=== PATIENT | female | born 1965 | race Caucasian/White ===

== ENCOUNTER 2017-02-07 21:13 | Observation (INO) | payer MEDICAID, OTHER ==
[2017-02-07] MEDS ORDERED: Sodium Chloride 0.9% 2.5 ML Syringe FLUSH PRN (21:48)
[2017-02-07] MEDS ORDERED: Sodium Chloride 0.9% 10 ML Syringe FLUSH PRN (21:48)
[2017-02-07] MEDS ORDERED: Aspirin 81 MG Tab.Chew PO ONE (21:48)
--- NOTE | 2017-02-07 21:51 | EDM.PDOC ---
ED HPI GENERAL MEDICAL PROBLEM - General Chief Complaint: Cardiovascular Problem Stated Complaint: LOW BLOOD SUGAR Time Seen by Provider: 02/07/17 21:42 Source of Information: Reports: Patient History Limitations: Reports: No Limitations - History of Present Illness INITIAL COMMENTS - FREE TEXT/NARRATIVE: HISTORY AND PHYSICAL: History of present illness: [51-year-old female with no known cardiac history except mitral regurg now presents emergency department after chest pain this evening associated with lightheadedness and palpitations. Patient is a long-term smoker, she has high cholesterol and high blood pressure with treatment of which she describes compliance with. Patient is not diabetic over she is a very strong family history of coronary artery disease with her mother passing away from a massive CA at 40 years old. Patient had a stress test 10 years ago when she had a TIA as well as an echocardiogram which was when her mitral regurg was diagnosed. She was supposed follow-up with cardiology but never did. She has not experienced exertional chest pain however she did feel like she was mildly short of breath earlier today which is now resolved. No productive cough or fever. Pain is not reproducible with movement. She has no pleuritic pain] Review of systems: As per history of present illness and below otherwise all systems reviewed and negative. Past medical history: As per history of present illness and as reviewed below otherwise noncontributory. Surgical history: As per history of present illness and as reviewed below otherwise noncontributory. Social history: No reported history of drug or alcohol abuse. Family history: As per history of present illness and as reviewed below otherwise noncontributory. Physical exam: Well-appearing patient distress nontender chest wall clear lungs regular rate and rhythm no tachycardia HEENT: Atraumatic, normocephalic, pupils reactive, negative for conjunctival pallor or scleral icterus, mucous membranes moist, throat clear, neck supple, nontender, trachea midline. Lungs: Clear to auscultation, breath sounds equal bilaterally, chest nontender. Heart: S1S2, regular, negative for clicks, rubs, or JVD. Abdomen: Soft, nondistended, nontender. Negative for masses or hepatosplenomegaly. Negative for costovertebral tenderness. Pelvis: Stable nontender. Genitourinary: Deferred. Rectal: Deferred. Extremities: Atraumatic, negative for cords or calf pain. Neurovascular unremarkable. Neuro: Awake, alert, oriented. Cranial nerves grossly unremarkable. Cerebellum unremarkable. Motor and sensory unremarkable throughout. Exam nonfocal. Diagnostics: [Chest x-ray no acute disease interpreted by me EKG with normal sinus rhythm normal axis no STEMI interpreted by me Therapeutics: [Aspirin given] Impression: [] Plan: [Signs and symptoms consistent with chest pain a possible cardiac etiology. Workup unremarkable. Patient stable and pain-free. Aspirin given. Case discussed with Dr. Louie Hayes hospitalist wind operations supervisor who is aware of history and findings and agrees with observation telemetry admission to his service.] Definitive disposition and diagnosis as appropriate pending reevaluation and review of above. Treatments DRY BOSS: Reports: Aspirin, Other (see below) Other Treatments DRY BOSS: Coreg Headache Pain Score (Numeric/FACES): 7 - Related Data Allergies Allergy/AdvReac Type Severity Reaction Status Date / Time Penicillins Allergy Itching Verified 02/07/17 22:05 Home Meds: Home Meds Albuterol Sulfate [Proventil Hfa] 2 puff INH Q4H PRN 02/07/17 [History] Aspirin [Adult Low Dose Aspirin EC] 81 mg PO 02/07/17 [History] Budesonide/Formoterol Fumarate [Symbicort 80-4.5 Mcg Inhaler] 2 puff INH DAILY 02/07/17 [History] Carvedilol [Coreg] 6.25 mg PO BIDMEALS 02/07/17 [History] Multivitamin [Multi-Vitamin Daily] 1 each PO 02/07/17 [History] Sertraline [Zoloft] 50 mg PO BEDTIME 02/07/17 [History] Simvastatin [Zocor] 10 mg PO BEDTIME 02/07/17 [History] Social & Family History - Tobacco Use Smoking Status *Q: Current Every Day Smoker Years of Tobacco use: 30 Packs/Tins Daily: 1 Used Tobacco, but Quit: No Second Hand Smoke Exposure: Yes - Alcohol Use Days Per Week of Alcohol Use: 7 Number of Drinks Per Day: 2 Total Drinks Per Week: 14 Date of Last Drink: 02/07/17 - Recreational Drug Use Recreational Drug Use: No ED ROS GENERAL - Review of Systems Review Of Systems: See Below (History of present illness) ED EXAM, GENERAL - Physical Exam Exam: See Below (History of present illness) Course - Vital Signs Last Recorded V/S: Last Vital Signs Temp 36.6 C 02/08/17 00:03 Pulse 89 02/08/17 00:15 Resp 16 02/08/17 00:15 BP 167/97 H 02/08/17 00:15 Pulse Ox 95 02/08/17 00:15 - Orders/Labs/Meds Orders: Active Orders 24 hr Category Date Time Status EKG 12 Lead [EKG Documentation Completion] [RC] STAT Care 02/07/17 21:36 Active EKG 12 Lead [EKG Documentation Completion] [RC] STAT Care 02/07/17 21:48 Inactive Chest 1V Frontal [CR] Stat Exams 02/07/17 21:48 Taken Sodium Chloride 0.9% [Normal Saline] 1,000 ml Med 02/07/17 22:00 Active IV ASDIRECTED Peripheral IV Insertion Adult [OM.PC] Stat Oth 02/07/17 21:48 Ordered Medication Orders Acetaminophen (Tylenol) 650 mg PO Q4H PRN PRN Reason: Pain Last Admin: 02/08/17 01:48 Dose: 650 mg Carvedilol (Coreg) 6.25 mg PO BIDMEALS [facility] Sodium Chloride (Normal Saline) 1,000 mls @ 999 mls/hr IV ASDIRECTED [facility] Last Admin: 02/07/17 22:22 Dose: 999 mls/hr Dextrose/Water (Dextrose 5% In Water) 1,000 mls @ 100 mls/hr IV ASDIRECTED [facility] Last Admin: 02/08/17 01:48 Dose: 100 mls/hr Non-Formulary Medication (Budesonide/Formoterol Fumarate) 2 puff INH DAILY [facility] Labs: Laboratory Tests 02/07/17 02/07/17 02/07/17 Range/Units 21:50 21:50 21:50 WBC 9.56 (4.0-11.0) K/uL RBC 4.67 (4.30-5.90) M/uL Hgb 13.3 (12.0-16.0) g/dL Hct 39.6 (36.0-46.0) % MCV 84.8 (80.0-98.0) fL MCH 28.5 (27.0-32.0) pg MCHC 33.6 (31.0-37.0) g/dL RDW Std Deviation 56.7 (28.0-62.0) fl RDW Coeff of Sara 19 H (11.0-15.0) % Plt Count 301 (150-400) K/uL MPV 8.70 (7.40-12.00) fL Neut % (Auto) 71.3 (48.0-80.0) % Lymph % (Auto) 19.6 (16.0-40.0) % [place] % (Auto) 7.5 (0.0-15.0) % Eos % (Auto) 1.3 (0.0-7.0) % Baso % (Auto) 0.3 (0.0-1.5) % Neut # (Auto) 6.8 H (1.4-5.7) K/uL Lymph # (Auto) 1.9 (0.6-2.4) K/uL [place] # (Auto) 0.7 (0.0-0.8) K/uL Eos # (Auto) 0.1 (0.0-0.7) K/uL Baso # (Auto) 0.0 (0.0-0.1) K/uL Nucleated RBC % 0.0 /100WBC Nucleated RBCs # 0 K/uL Sodium 125 L (136-146) mmol/L Potassium 3.8 (3.5-5.1) mmol/L Chloride 93 L (98-110) mmol/L Carbon Dioxide 21 (21-31) mmol/L BUN 12 (6.0-23.0) mg/dL Creatinine 0.7 (0.6-1.5) mg/dL Est Cr Clr Drug Dosing 92.46 mL/min Estimated GFR (MDRD) > 60.0 ml/min Glucose 86 (60-110) mg/dL Calcium 9.3 (8.8-10.8) mg/dL Total Bilirubin 0.3 (0.1-1.5) mg/dL AST 41 H (5-40) IU/L ALT 28 (8-54) IU/L Alkaline Phosphatase 92 (40-150) Troponin I < 0.10 (0.0-0.29) NG/ML Total Protein 7.3 (6.0-8.0) g/dL Albumin 4.3 (3.5-5.0) g/dL Globulin 3.0 (2.0-3.5) g/dL Albumin/Globulin Ratio 1.4 (1.3-2.8) Meds: Medications Generic Name Dose Route Start Last Admin Trade Name Freq PRN Reason Stop Dose Admin Acetaminophen 650 mg 02/08/17 01:35 02/08/17 01:48 Tylenol PO 650 mg Q4H PRN Administration Pain Carvedilol 6.25 mg 02/08/17 08:00 Coreg PO BIDMEALS [facility] Sodium Chloride 1,000 mls @ 999 mls/hr 02/07/17 22:00 02/07/17 22:22 Normal Saline IV 999 mls/hr ASDIRECTED [facility] Administration Dextrose/Water 1,000 mls @ 100 mls/hr 02/08/17 01:45 02/08/17 01:48 Dextrose 5% In Water IV 100 mls/hr ASDIRECTED [facility] Administration Non-Formulary Medication 2 puff 02/08/17 09:00 Budesonide/Formoterol Fumarate INH DAILY [facility] Discontinued Medications Generic Name Dose Route Start Last Admin Trade Name Luis Enriqueq PRN Reason Stop Dose Admin Aspirin 324 mg 02/07/17 21:48 02/07/17 22:23 Aspirin PO 02/07/17 21:49 243 mg ONETIME ONE Administration Sodium Chloride 1,000 mls @ 100 mls/hr 02/08/17 00:30 02/08/17 00:51 Normal Saline IV 100 mls/hr ASDIRECTED [facility] Administration Sodium Chloride 10 ml 02/07/17 21:48 02/07/17 22:22 Saline Flush FLUSH 10 ml ASDIRECTED PRN Administration Keep Vein Open Sodium Chloride 2.5 ml 02/07/17 21:48 02/07/17 22:25 Saline Flush FLUSH 2.5 ml ASDIRECTED PRN Administration Keep Vein Open Departure - Departure Time of Disposition: 23:30 Disposition: Admitted As Inpatient 66 Clinical Impression: Chest pain, Palpitations - My Orders Last 24 Hours: My Active Orders 02/07/17 21:36 EKG 12 Lead [EKG Documentation Completion] [RC] STAT 02/07/17 21:48 EKG 12 Lead [EKG Documentation Completion] [RC] STAT Chest 1V Frontal [CR] Stat Peripheral IV Insertion Adult [OM.PC] Stat 02/07/17 22:00 Sodium Chloride 0.9% [Normal Saline] 1,000 ml IV ASDIRECTED - Assessment/Plan Last 24 Hours: My Active Orders 02/07/17 21:36 EKG 12 Lead [EKG Documentation Completion] [RC] STAT 02/07/17 21:48 EKG 12 Lead [EKG Documentation Completion] [RC] STAT Chest 1V Frontal [CR] Stat Peripheral IV Insertion Adult [OM.PC] Stat 02/07/17 22:00 Sodium Chloride 0.9% [Normal Saline] 1,000 ml IV ASDIRECTED
[2017-02-07] MEDS ORDERED: Sodium Chloride 0.9% 1,000 ML IV SCH (22:00)
[2017-02-07 22:29] LABS: CHLORIDE,CL 93 mmol/L (98-110); SODIUM,NA 125 mmol/L (136-146)
[2017-02-07] MEDS ORDERED: HYDROmorphone 1 MG/ML Syringe IVPUSH ONE (23:02)
[2017-02-08] MEDS ORDERED: Sodium Chloride 0.9% 1,000 ML IV SCH (00:30)
[2017-02-08 01:05] LABS: CHLORIDE,CL 102 mmol/L (98-110); SODIUM,NA 134 mmol/L (136-146)
[2017-02-08] MEDS: Acetaminophen 325 MG Tab PO PRN ×2 (01:48→13:22)
[2017-02-08] MEDS: Dextrose 5% in Water 1,000 ML IV SCH ×3 (01:48→16:27)
[2017-02-08 04:14] LABS: CHLORIDE,CL 105 mmol/L (98-110); SODIUM,NA 136 mmol/L (136-146)
[2017-02-08] MEDS: Carvedilol 6.25 MG Tab PO SCH ×2 (08:37→16:17)
[2017-02-08 08:38] LABS: CHLORIDE,CL 103 mmol/L (98-110); SODIUM,NA 135 mmol/L (136-146)
[2017-02-08] MEDS ORDERED: Non-Formulary Medication 1 Each (Budesonide/Formoterol Fumarate 2 PUFF) INH SCH (09:00)
--- NOTE | 2017-02-08 11:01 | PCM.HP ---
H&P History of Present Illness - General Date of Service: 02/08/17 Admit Problem/Dx: Admission Diagnosis/Problem Admission Diagnosis/Problem Chest pain - History of Present Illness Initial Comments - Free Text/Narative: 51 yo female who presents with palpitations. Palpitations lasted for several hours and were associated with chest pressure. PAtient reported took her blood pressure at home and it was noted to be low with fast heart rate. By the time she was brought to the ED she reported her palpiations and chest pressure largely resolved. EKG was noted to be in NSR with HR of 95 bpm. CXR was unremarkable. She was noted to have a sodium of 125. She reported drank three plastic bottles of water today. She reports drinking 4 tall cans of beer at night. She would drink more but this as much as her family lets her drink. She does report shakes prior to drinking at night. She has a strong family history of alcohol abuse. She received one liter of NS in the ED. Headache Pain Score (Numeric/FACES): 7 - Related Data Allergies/Adverse Reactions: Allergies Allergy/AdvReac Type Severity Reaction Status Date / Time Penicillins Allergy Itching Verified 02/07/17 22:05 Home Medications: Home Meds Albuterol Sulfate [Proventil Hfa] 2 puff INH Q4H PRN 02/07/17 [History] Aspirin [Adult Low Dose Aspirin EC] 81 mg PO 02/07/17 [History] Budesonide/Formoterol Fumarate [Symbicort 80-4.5 Mcg Inhaler] 2 puff INH DAILY 02/07/17 [History] Carvedilol [Coreg] 6.25 mg PO BIDMEALS 02/07/17 [History] Multivitamin [Multi-Vitamin Daily] 1 each PO 02/07/17 [History] Sertraline [Zoloft] 50 mg PO BEDTIME 02/07/17 [History] Simvastatin [Zocor] 10 mg PO BEDTIME 02/07/17 [History] Past Medical History HEENT History: Reports: Other (See Below) Other HEENT History: uses corrective glasses Cardiovascular History: Reports: Arrhythmia, High Cholesterol, Hypertension Respiratory History: Reports: COPD, Other (See Below) Other Respiratory History: emphysema Gastrointestinal History: Reports: None Genitourinary History: Reports: None APPLICATION SUPPORT INTERN History: Reports: Musculoskeletal History: Reports: Arthritis Neurological History: Reports: TIA Psychiatric History: Reports: Anxiety, Depression Endocrine/Metabolic History: Reports: None Hematologic History: Reports: Anemia Immunologic History: Reports: None Oncologic (Cancer) History: Reports: None Dermatologic History: Reports: None - Infectious Disease History Infectious Disease History: Reports: TB - Past Surgical History Head Surgeries/Procedures: Reports: None GI Surgical History: Reports: None Social & Family History - Family History HEENT: Reports: None Cardiac: Reports: High Cholesterol, Hypertension, [place] Respiratory: Reports: None GI: Reports: None : Reports: None OBGYN: Reports: Musculoskeletal: Reports: Arthritis, Gout Neurological: Reports: None Psychiatric: Reports: Anxiety, Depression Endocrine/Metabolic: Reports: None Hematologic: Reports: None Immunologic: Reports: None Dermatologic: Reports: None Oncologic: Reports: Lymphoma - Tobacco Use Smoking Status *Q: Current Every Day Smoker Years of Tobacco use: 30 Packs/Tins Daily: 1 Used Tobacco, but Quit: No Second Hand Smoke Exposure: No - Caffeine Use Caffeine Use: Reports: Coffee, Energy Drinks - Alcohol Use Days Per Week of Alcohol Use: 7 Number of Drinks Per Day: 2 Total Drinks Per Week: 14 Date of Last Drink: 02/07/17 - Recreational Drug Use Recreational Drug Use: No H&P Review of Systems - Review of Systems: Review Of Systems: ROS reveals no pertinent complaints other than HPI. Exam - Exam Exam: See Below - Vital Signs Vital Signs: Last Vital Signs Temp 36.8 C 02/08/17 08:00 Pulse 76 02/08/17 08:37 Resp 16 02/08/17 08:00 BP 132/80 02/08/17 08:37 Pulse Ox 94 L 02/08/17 08:00 Weight: 68.266 kg - Exam General: Alert, Oriented, 4 HEENT: Mucosa Moist & [place] Neck: Supple Lungs: Clear to Auscultation, Normal Respiratory Effort Cardiovascular: Regular Rate, Regular Rhythm GI/Abdominal Exam: Normal Bowel Sounds, Soft, No Distention Extremities: No Pedal Edema Skin: Warm, Dry, Intact Neurological: No: Focal Deficit - Patient Data Lab Results Last 24 hrs: Laboratory Results - last 24 hr 02/08/17 02/08/17 02/08/17 Range/Units 00:37 00:37 03:46 Sodium 134 L (136-146) mmol/L Potassium 3.8 (3.5-5.1) mmol/L Chloride 102 (98-110) mmol/L Carbon Dioxide 21 (21-31) mmol/L BUN 9 (6.0-23.0) mg/dL Creatinine 0.6 (0.6-1.5) mg/dL Est Cr Clr Drug Dosing 107.87 mL/min Estimated GFR (MDRD) > 60.0 ml/min Glucose 79 (60-110) mg/dL Calcium 9.3 (8.8-10.8) mg/dL Magnesium 1.6 (1.5-2.3) mEq/L Troponin I < 0.10 (0.0-0.29) NG/ML 02/08/17 02/08/17 02/08/17 Range/Units 03:46 07:44 09:57 Sodium 136 135 L (136-146) mmol/L Potassium 4.1 4.3 (3.5-5.1) mmol/L Chloride 105 103 (98-110) mmol/L Carbon Dioxide 24 24 (21-31) mmol/L BUN 9 8 (6.0-23.0) mg/dL Creatinine 0.6 0.6 (0.6-1.5) mg/dL Est Cr Clr Drug Dosing 111.90 111.90 mL/min Estimated GFR (MDRD) > 60.0 > 60.0 ml/min Glucose 90 87 (60-110) mg/dL Calcium 9.2 9.3 (8.8-10.8) mg/dL Magnesium (1.5-2.3) mEq/L Troponin I < 0.10 (0.0-0.29) NG/ML Result Diagrams: 02/09/17 04:47 02/09/17 04:47 *Q Meaningful Use (ADM) - VTE *Q VTE Criteria *Q: - Stroke *Q Stroke Criteria *Q: - AMI *Q AMI Criteria *Q: Problem List Initiated/Reviewed/Updated: Yes Orders Last 24hrs: Active Orders 24 hr Category Date Time Status Antiembolic Devices [RC] PER UNIT ROUTINE Care 02/08/17 10:55 Ordered Intake and Output [RC] QSHIFT Care 02/08/17 10:55 Ordered Oxygen Therapy [RC] PRN Care 02/08/17 10:54 Ordered Telemetry Monitoring [Cardiac Monitoring] [RC] Q8H Care 02/08/17 00:26 Active Up ad Mary [RC] ASDIRECTED Care 02/08/17 10:54 Ordered VTE/DVT Education [RC] PER UNIT ROUTINE Care 02/08/17 10:54 Ordered Vital Signs [RC] Q4H Care 02/08/17 10:54 Ordered Regular Diet [DIET] Diet 02/08/17 Breakfast Active BASIC METABOLIC PANEL,BMP [CHEM] Timed Lab 02/08/17 12:00 Ordered CBC WITH AUTO DIFF [HEME] AM Lab 02/09/17 05:11 Ordered Acetaminophen [Tylenol] Med 02/08/17 01:35 Active 650 mg PO Q4H PRN Budesonide/Formoterol Fumarate Med 02/08/17 09:00 Active 2 puff INH DAILY Carvedilol [Coreg] Med 02/08/17 08:00 Active 6.25 mg PO BIDMEALS Dextrose 5% in Water 1,000 ml Med 02/08/17 01:45 Active IV ASDIRECTED Folic Acid Med 02/08/17 11:00 Ordered 1 mg PO DAILY LORazepam [Ativan] Med 02/08/17 10:52 Ordered 1 mg IVPUSH Q4H PRN Thiamine [Vitamin B-1] Med 02/08/17 11:00 Ordered 100 mg PO DAILY Sequential Compression Device [OM.PC] Per Unit Routine Oth 02/08/17 10:55 Ordered Resuscitation Status Routine Resus Stat 02/08/17 10:54 Ordered Medication Orders Acetaminophen (Tylenol) 650 mg PO Q4H PRN PRN Reason: Pain Last Admin: 02/08/17 01:48 Dose: 650 mg Carvedilol (Coreg) 6.25 mg PO BIDMEALS [facility] Last Admin: 02/08/17 08:37 Dose: 6.25 mg Folic Acid (Folic Acid) 1 mg PO DAILY [facility] Sodium Chloride (Normal Saline) 1,000 mls @ 999 mls/hr IV ASDIRECTED [facility] Last Admin: 02/07/17 22:22 Dose: 999 mls/hr Dextrose/Water (Dextrose 5% In Water) 1,000 mls @ 200 mls/hr IV ASDIRECTED [facility] Last Infusion: 02/08/17 09:19 Dose: 200 mls/hr Admin: 02/08/17 01:48 Dose: 100 mls/hr Lorazepam (Ativan) 1 mg IVPUSH Q4H PRN PRN Reason: Agitation Non-Formulary Medication (Budesonide/Formoterol Fumarate) 2 puff INH DAILY [facility] Last Admin: 02/08/17 09:26 Dose: Thiamine HCl (Vitamin B-1) 100 mg PO DAILY [facility] Assessment/Plan Comment:: 51 yo female who presents with palpitations and found to be hyponatremic likely due to alcohol consumption. palpitations/chest pain: will monitor on telemetry and trend cardiac enzymes Hyponatremia: patients sodium jesus to 136 after fluid bolus, have started D5W to slow rate of correction Alcohol abuse/dependence: will place on CIWA protocol, thiamin and folic acid.
--- NOTE | 2017-02-08 11:17 | CR ---
EXAM DATE: 02/07/17 PATIENT'S AGE: 51 Patient: MYARA RICKS Facility: [place], [place] Site . Site : [id number] Study: XRay Chest [id number] 10:19:52 PM Ordering Physician: Dionicio Preston Final Report: INDICATION: Chest pain. Technique: PA chest. Findings: Heart size normal. Lungs are hyperinflated or there has been a deep inspiration. Nonspecific gas distention of bowel loops in the left upper abdomen. Bronchovascular markings in the perihilar regions are increased but is likely a chronic finding. Chest otherwise unremarkable. Dictated by Giuseppe Brower MD @ Feb 07 2017 10:32PM (Electronic Signature) Report Signed by Proxy. SIA
[2017-02-08] MEDS: Folic Acid 1 MG Tab PO SCH (11:37)
[2017-02-08] MEDS: Thiamine 100 MG Tab PO SCH (11:37)
[2017-02-08 12:56] LABS: CHLORIDE,CL 99 mmol/L (98-110); SODIUM,NA 133 mmol/L (136-146)
[2017-02-08] MEDS ORDERED: Nicotine 14 MG/24 Hr Patch TRDERM SCH (16:15)
[2017-02-08] MEDS: LORazepam 2 MG/ML MDV IVPUSH PRN ×2 (16:18→19:59)
[2017-02-08] MEDS ORDERED: Sertraline 50 MG Tab PO SCH (21:00)
[2017-02-08] MEDS ORDERED: Simvastatin 10 MG Tab PO SCH (21:00)
[2017-02-09 05:47] LABS: CHLORIDE,CL 105 mmol/L (98-110); SODIUM,NA 136 mmol/L (136-146)
[2017-02-09] MEDS: Carvedilol 6.25 MG Tab PO SCH (07:51)
[2017-02-09] MEDS: Acetaminophen 325 MG Tab PO PRN (08:01)
[2017-02-09] MEDS: Folic Acid 1 MG Tab PO SCH (08:01)
[2017-02-09] MEDS: Thiamine 100 MG Tab PO SCH (08:01)
[2017-02-09] MEDS ORDERED: Budesonide/Formoterol Fumarate 2 PUFF INH SCH (09:00)
--- NOTE | 2017-02-09 09:09 | PCM.DCSUM1 ---
Discharge Summary - Discharge Data Discharge Date: 02/09/17 Discharge Disposition: Home, Self-Care 01 Condition: Good - Patient Summary/Data Hospital Course: Admission diagnosis Hyponatremia Alcohol abuse/dependence Chest pain 51 yo female who was admitted for hyponatremia. She presented with palpitations and chest pressure that had resolved prior to being seen in the ED. EKG was noted to be in NSR with HR of 95 bpm. CXR was unremarkable. She was noted to have a sodium of 125. She drinks 4 tall cans of beer a night and has shakes prior to her first beer at night. She was given one liter of NS and sodium increased to 136. She was given d5W to slow the rate of increase to 6 mmoles of sodium a day. She ruled out for acute coronary syndrome with serial negative cardiac enzymes. She was placed on CIWA protocol with thiamin and folic acid. Today she is feeling well and is requesting discharge home. Patient has motivation to stop drinking and has supportive family. She was discharge home to have follow up with Marce Bowers and a referral to outpatient stress testing was made. - Discharge Plan Home Medications: Home Meds Albuterol Sulfate [Proventil Hfa] 2 puff INH Q4H PRN 02/07/17 [History] Aspirin [Adult Low Dose Aspirin EC] 81 mg PO 02/07/17 [History] Budesonide/Formoterol Fumarate [Symbicort 80-4.5 Mcg Inhaler] 2 puff INH DAILY 02/07/17 [History] Carvedilol [Coreg] 6.25 mg PO BIDMEALS 02/07/17 [History] Multivitamin [Multi-Vitamin Daily] 1 each PO 02/07/17 [History] Sertraline [Zoloft] 50 mg PO BEDTIME 02/07/17 [History] Simvastatin [Zocor] 10 mg PO BEDTIME 02/07/17 [History] Patient Handouts: Nonspecific Chest Pain, [id number] Referrals: Marce Bowers SITE SAFETY REPRESENTATIVE [Ordering Only Provider] - - Patient Data Vitals - Most Recent: Last Vital Signs Temp 36.2 C 02/09/17 07:45 Pulse 70 02/09/17 08:29 Resp 18 02/09/17 08:29 BP 181/109 H 02/09/17 08:29 Pulse Ox 99 02/09/17 07:45 Weight - Most Recent: 65.487 kg I&O - Last 24 hours: Intake & Output 02/08/17 02/09/17 02/09/17 22:59 06:59 14:59 Intake Total 3860 1100 Output Total 3650 2600 Balance 210 -1500 Lab Results - Last 24 hrs: Laboratory Results - last 24 hr 02/08/17 02/08/17 02/08/17 Range/Units 09:57 12:02 16:09 WBC (4.0-11.0) K/uL RBC (4.30-5.90) M/uL Hgb (12.0-16.0) g/dL Hct (36.0-46.0) % MCV (80.0-98.0) fL MCH (27.0-32.0) pg MCHC (31.0-37.0) g/dL RDW Std Deviation (28.0-62.0) fl RDW Coeff of Sara (11.0-15.0) % Plt Count (150-400) K/uL MPV (7.40-12.00) fL Neut % (Auto) (48.0-80.0) % Lymph % (Auto) (16.0-40.0) % [place] % (Auto) (0.0-15.0) % Eos % (Auto) (0.0-7.0) % Baso % (Auto) (0.0-1.5) % Neut # (Auto) (1.4-5.7) K/uL Lymph # (Auto) (0.6-2.4) K/uL [place] # (Auto) (0.0-0.8) K/uL Eos # (Auto) (0.0-0.7) K/uL Baso # (Auto) (0.0-0.1) K/uL Nucleated RBC % /100WBC Nucleated RBCs # K/uL Sodium 133 L 130 L (136-146) mmol/L Potassium 4.8 (3.5-5.1) mmol/L Chloride 99 (98-110) mmol/L Carbon Dioxide 27 (21-31) mmol/L BUN 11 (6.0-23.0) mg/dL Creatinine 0.7 (0.6-1.5) mg/dL Est Cr Clr Drug Dosing 95.91 mL/min Estimated GFR (MDRD) > 60.0 ml/min Glucose 144 H (60-110) mg/dL Calcium 9.2 (8.8-10.8) mg/dL Troponin I < 0.10 (0.0-0.29) NG/ML 02/08/17 02/09/17 02/09/17 Range/Units 20:01 04:47 04:47 WBC 5.19 (4.0-11.0) K/uL RBC 4.68 (4.30-5.90) M/uL Hgb 13.2 (12.0-16.0) g/dL Hct 40.3 (36.0-46.0) % MCV 86.1 (80.0-98.0) fL MCH 28.2 (27.0-32.0) pg MCHC 32.8 (31.0-37.0) g/dL RDW Std Deviation 58.8 (28.0-62.0) fl RDW Coeff of Sara 19 H (11.0-15.0) % Plt Count 306 (150-400) K/uL MPV 8.90 (7.40-12.00) fL Neut % (Auto) 54.1 (48.0-80.0) % Lymph % (Auto) 31.4 (16.0-40.0) % [place] % (Auto) 11.4 (0.0-15.0) % Eos % (Auto) 2.3 (0.0-7.0) % Baso % (Auto) 0.8 (0.0-1.5) % Neut # (Auto) 2.8 (1.4-5.7) K/uL Lymph # (Auto) 1.6 (0.6-2.4) K/uL [place] # (Auto) 0.6 (0.0-0.8) K/uL Eos # (Auto) 0.1 (0.0-0.7) K/uL Baso # (Auto) 0.0 (0.0-0.1) K/uL Nucleated RBC % 0.0 /100WBC Nucleated RBCs # 0 K/uL Sodium 133 L 136 (136-146) mmol/L Potassium 5.1 (3.5-5.1) mmol/L Chloride 105 (98-110) mmol/L Carbon Dioxide 24 (21-31) mmol/L BUN 12 (6.0-23.0) mg/dL Creatinine 0.6 (0.6-1.5) mg/dL Est Cr Clr Drug Dosing 111.90 mL/min Estimated GFR (MDRD) > 60.0 ml/min Glucose 92 (60-110) mg/dL Calcium 9.5 (8.8-10.8) mg/dL Troponin I (0.0-0.29) NG/ML Med Orders - Current: Current Medications Acetaminophen (Tylenol) 650 mg PO Q4H PRN PRN Reason: Pain Last Admin: 02/09/17 08:01 Dose: 650 mg Carvedilol (Coreg) 6.25 mg PO BIDMEALS [facility] Last Admin: 02/09/17 07:51 Dose: 6.25 mg Folic Acid (Folic Acid) 1 mg PO DAILY [facility] Last Admin: 02/09/17 08:01 Dose: 1 mg Sodium Chloride (Normal Saline) 1,000 mls @ 999 mls/hr IV ASDIRECTED [facility] Last Admin: 02/07/17 22:22 Dose: 999 mls/hr Lorazepam (Ativan) 1 mg IVPUSH Q4H PRN PRN Reason: Agitation Last Admin: 02/08/17 19:59 Dose: 1 mg Nicotine (Habitrol) 14 mg TRDERM Q24H [facility] Last Admin: 02/08/17 16:24 Dose: 14 mg Budesonide/Formoterol Fumarate 2 Puff 1 each INH DAILY [facility] Last Admin: 02/09/17 08:02 Dose: 1 each Sertraline HCl (Zoloft) 50 mg PO BEDTIME [facility] Last Admin: 02/08/17 19:59 Dose: 50 mg Simvastatin (Zocor) 10 mg PO BEDTIME [facility] Last Admin: 02/08/17 19:59 Dose: 10 mg Thiamine HCl (Vitamin B-1) 100 mg PO DAILY [facility] Last Admin: 02/09/17 08:01 Dose: 100 mg Discontinued Medications Aspirin (Aspirin) 324 mg PO ONETIME ONE Stop: 02/07/17 21:49 Last Admin: 02/07/17 22:23 Dose: 243 mg Sodium Chloride (Normal Saline) 1,000 mls @ 100 mls/hr IV ASDIRECTED [facility] Last Admin: 02/08/17 00:51 Dose: 100 mls/hr Dextrose/Water (Dextrose 5% In Water) 1,000 mls @ 100 mls/hr IV ASDIRECTED [facility] Last Admin: 02/08/17 16:27 Dose: 200 mls/hr Non-Formulary Medication (Budesonide/Formoterol Fumarate) 2 puff INH DAILY [facility] Last Admin: 02/08/17 09:26 Dose: Not Given Sodium Chloride (Saline Flush) 10 ml FLUSH ASDIRECTED PRN PRN Reason: Keep Vein Open Last Admin: 02/07/17 22:22 Dose: 10 ml Sodium Chloride (Saline Flush) 2.5 ml FLUSH ASDIRECTED PRN PRN Reason: Keep Vein Open Last Admin: 02/07/17 22:25 Dose: 2.5 ml *Q Meaningful Use (DIS) - VTE *Q VTE Criteria *Q: - Stroke *Q Stroke Criteria *Q: - AMI *Q AMI Criteria *Q:
== END 2017-02-09 09:35 | disposition home or self-care (01) ==
LOC: MW.ED 21:13 → MW.MS 23:34
PROVIDERS: ADMIT Internal Medicine; ATTEND Internal Medicine
DX: E87.1 Hypo-osmolality and hyponatremia (principal); R00.2 Palpitations; R07.89 Other chest pain; E78.00 Pure hypercholesterolemia, unspecified; I10 Essential (primary) hypertension; J44.9 Chronic obstructive pulmonary disease, unspecified; M19.90 Unspecified osteoarthritis, unspecified site; F41.9 Anxiety disorder, unspecified; F32.9 Major depressive disorder, single episode, unspecified; F17.210 Nicotine dependence, cigarettes, uncomplicated; F10.20 Alcohol dependence, uncomplicated; Z86.73 Personal history of transient ischemic attack (TIA), and cerebral infarction without residual deficits; Z86.11 Personal history of tuberculosis; Z79.82 Long term (current) use of aspirin; Z79.51 Long term (current) use of inhaled steroids; Z79.899 Other long term (current) drug therapy
CPT/HCPCS: 36415; 71010; 80048; 80053; 83735; 84295; 84484; 85025; 93005; 96361; 96374; 96376; 99285; A9270; G0378; J2060; J7040; J7060; 96360; 99283

== ENCOUNTER 2018-09-09 11:30 | Observation (INO) | payer MEDICAID ==
--- NOTE | 2018-09-09 11:48 | EDM.PDOC ---
ED HPI GENERAL MEDICAL PROBLEM - General Chief Complaint: General Stated Complaint: BACK PAIN Time Seen by Provider: 09/09/18 11:37 Source of Information: Reports: Patient History Limitations: Reports: No Limitations - History of Present Illness INITIAL COMMENTS - FREE TEXT/NARRATIVE: HISTORY AND PHYSICAL: History of present illness: Patient is a 53-year-old female who presents to the ED today with concern of right rib injury after a fall that occurred at 9pm last night. Patient states she is on a daily aspirin. Patient states she has had an increase in shortness of breath over the night after falling. Patient states she was in the shower and had just given her dog a bath, so the shower was slippery. She states she slipped and fell and hit the right side of her ribs on the bathtub. Patient states she did not hit her head or lose consciousness. Patient states she has a history of COPD and has been managed well with inhalers at home. Patient states she does continue to smoke. Patient denies fever, chills, chest pain, or cough. Denies headache, neck stiff ness, change in vision, syncope, or near syncope. Denies nausea, vomiting, abdominal pain, diarrhea, constipation, or dysuria. Has not noted any blood in urine or stool. Patient has been eating and drinking appropriately. Review of systems: As per history of present illness and below otherwise all systems reviewed and negative. Past medical history: As per history of present illness and as reviewed below otherwise noncontributory. Surgical history: As per history of present illness and as reviewed below otherwise noncontributory. Social history: See social history for further information Family history: As per history of present illness and as reviewed below otherwise noncontributory. Physical exam: General: Patient is alert, oriented, and in no acute distress. Patient sitting comfortably on exam table. HEENT: Atraumatic, normocephalic, pupils equal and reactive bilaterally, negative for conjunctival pallor or scleral icterus, mucous membranes moist, TMs normal bilaterally, throat clear, neck supple, nontender, trachea midline. No drooling or trismus noted. No meningeal signs. No hot potato voice noted. Lungs: Diffuse wheezing to auscultation, breath sounds equal bilaterally. There is a generalized area of erythema over the right posterior ribs and flank with severe pain to palpation with guarding. Exam is limited due to pain. No obvious deformities, step-offs, or crepitus upon palpation of the ribs. Heart: S1S2, regular rate and rhythm without overt murmur Abdomen: Soft, nondistended, nontender. Negative for masses or hepatosplenomegaly. Pelvis: Stable nontender. Genitourinary: Deferred. Rectal: Deferred. Skin: Intact, warm, dry. No lesions or rashes noted. Extremities: Atraumatic, negative for cords or calf pain. Neurovascular unremarkable. Neuro: Awake, alert, oriented. Cranial nerves II through XII unremarkable. Cerebellum unremarkable. Motor and sensory unremarkable throughout. Exam nonfocal. Notes: Initially patient did not express that she is taking a daily aspirin, however, on my interview express that she takes a full dose of aspirin every morning. Trauma alert was called following this information. Dr. Peña verbally involved in patient care. Dr. Adame, general surgery tax economist, was consulted on patient and has come in to see patient. Will admit to observation. Voices understanding and is agreeable to plan of care. Denies any further questions or concerns at this time. Diagnostics: Two-view chest with ribs, [employer]: DuoNeb, Solu-Medrol, morphine Impression: Hemothorax Right rib fractures, mildly displaced of rib 9 and 10 Pulmonary contusion COPD Plan: 1. Admit to observation to Dr. Adame. Definitive disposition and diagnosis as appropriate pending reevaluation and review of above. right back ribs Pain Score (Numeric/FACES): 9 - Related Data Allergies Allergy/AdvReac Type Severity Reaction Status Date / Time Penicillins Allergy Itching Verified 09/09/18 11:37 Home Meds: Home Meds Albuterol Sulfate [Proventil Hfa] 2 puff INH Q4H PRN 02/07/17 [History] Aspirin [Adult Low Dose Aspirin EC] 81 mg PO ASDIRECTED 02/07/17 [History] Budesonide/Formoterol Fumarate [Symbicort 80-4.5 Mcg Inhaler] 2 puff INH DAILY 02/07/17 [History] Carvedilol [Coreg] 6.25 mg PO BIDMEALS 02/07/17 [History] Multivitamin [Multi-Vitamin Daily] 1 each PO DAILY 02/07/17 [History] Sertraline [Zoloft] 50 mg PO BEDTIME 02/07/17 [History] Simvastatin [Zocor] 10 mg PO BEDTIME 02/07/17 [History] Past Medical History HEENT History: Reports: Other (See Below) Other HEENT History: uses corrective glasses Cardiovascular History: Reports: Arrhythmia, High Cholesterol, Hypertension Respiratory History: Reports: COPD, Other (See Below) Other Respiratory History: emphysema Gastrointestinal History: Reports: None Genitourinary History: Reports: None [employer] CHIEF History: Reports: Musculoskeletal History: Reports: Arthritis Neurological History: Reports: TIA Psychiatric History: Reports: Anxiety, Depression Endocrine/Metabolic History: Reports: None Hematologic History: Reports: Anemia Immunologic History: Reports: None Oncologic (Cancer) History: Reports: None Dermatologic History: Reports: None - Infectious Disease History Infectious Disease History: Reports: TB - Past Surgical History Head Surgeries/Procedures: Reports: None HEENT Surgical History: Reports: None Cardiovascular Surgical History: Reports: None Respiratory Surgical History: Reports: None GI Surgical History: Reports: None Female Surgical History: Reports: None Endocrine Surgical History: Reports: None Neurological Surgical History: Reports: None Musculoskeletal Surgical History: Reports: None Dermatological Surgical History: Reports: None Social & Family History - Family History HEENT: Reports: None Cardiac: Reports: High Cholesterol, Hypertension, [place] Respiratory: Reports: None GI: Reports: None : Reports: None OBGYN: Reports: Musculoskeletal: Reports: Arthritis, Gout Neurological: Reports: None Psychiatric: Reports: Anxiety, Depression Endocrine/Metabolic: Reports: None Hematologic: Reports: None Immunologic: Reports: None Dermatologic: Reports: None Oncologic: Reports: Lymphoma - Tobacco Use Smoking Status *Q: Current Every Day Smoker Years of Tobacco use: 30 Packs/Tins Daily: 0.7 - Caffeine Use Caffeine Use: Reports: Coffee, Soda, Tea - Recreational Drug Use Recreational Drug Use: No ED ROS GENERAL - Review of Systems Review Of Systems: ROS reveals no pertinent complaints other than HPI. ED EXAM, GENERAL - Physical Exam Exam: See Below (See dictation) Course - Vital Signs Last Recorded V/S: Last Vital Signs Temp 35.4 C 09/09/18 11:38 Pulse 81 09/09/18 11:38 Resp 18 09/09/18 11:38 BP 160/103 H 09/09/18 11:38 Pulse Ox 95 09/09/18 11:38 - Orders/Labs/Meds Orders: Active Orders 24 hr Category Date Time Status Admission Status [Patient Status] [ADT] Stat ADT 09/09/18 13:18 Ordered RT Aerosol Therapy [RC] ASDIRECTED Care 09/09/18 11:57 Active CBC WITH AUTO DIFF [HEME] Stat Lab 09/09/18 13:14 Ordered COMPREHENSIVE METABOLIC PN,CMP [CHEM] Stat Lab 09/09/18 13:14 Ordered Sodium Chloride 0.9% [Saline Flush] Med 09/09/18 13:16 Ordered 10 ml FLUSH ASDIRECTED PRN Sodium Chloride 0.9% [Saline Flush] Med 09/09/18 13:16 Ordered 2.5 ml FLUSH ASDIRECTED PRN Saline Lock Insert [OM.PC] Stat Oth 09/09/18 13:16 Ordered Medication Orders Sodium Chloride (Saline Flush) 10 ml FLUSH ASDIRECTED PRN PRN Reason: Keep Vein Open Sodium Chloride (Saline Flush) 2.5 ml FLUSH ASDIRECTED PRN PRN Reason: Keep Vein Open Labs: Laboratory Tests 09/09/18 Range/Units 12:00 Urine Color YELLOW Urine Appearance CLEAR Urine pH 6.0 (5.0-8.0) Ur Specific [place] 1.015 (1.001-1.035) Urine Protein NEGATIVE (NEGATIVE) mg/dL Urine Glucose (UA) NEGATIVE (NEGATIVE) mg/dL Urine Ketones NEGATIVE (NEGATIVE) mg/dL Urine Occult Blood SMALL H (NEGATIVE) Urine Nitrite NEGATIVE (NEGATIVE) Urine Bilirubin NEGATIVE (NEGATIVE) Urine Urobilinogen 0.2 (<2.0) EU/dL Ur Leukocyte Esterase NEGATIVE (NEGATIVE) Urine RBC 1-2 (0-2/HPF) Urine WBC 0-2 (0-5/HPF) Ur Epithelial Cells FEW (NONE-FEW) Urine Bacteria FEW (NEGATIVE) Meds: Medications Generic Name Dose Route Start Last Admin Trade Name Freq PRN Reason Stop Dose Admin Sodium Chloride 10 ml 09/09/18 13:16 Saline Flush FLUSH ASDIRECTED PRN Keep Vein Open Sodium Chloride 2.5 ml 09/09/18 13:16 Saline Flush FLUSH ASDIRECTED PRN Keep Vein Open Discontinued Medications Generic Name Dose Route Start Last Admin Trade Name Freq PRN Reason Stop Dose Admin Albuterol/Ipratropium 3 ml 09/09/18 11:57 09/09/18 12:30 Duoneb 3.0-0.5 Mg/3 Ml NEB 09/09/18 11:58 3 ml ONETIME ONE Administration Methylprednisolone Sodium Succinate 125 mg 09/09/18 11:57 09/09/18 12:54 Solu-Medrol IM 09/09/18 11:58 125 mg ONETIME ONE Administration Morphine Sulfate 2 mg 09/09/18 13:16 Morphine IVPUSH 09/09/18 13:17 ONETIME ONE Departure - Departure Time of Disposition: 13:21 Disposition: Refer to Observation Clinical Impression: Hemothorax on right Ribs, multiple fractures Qualifiers: Encounter type: initial encounter Fracture type: closed Laterality: right Qualified Code(s): S22.41XA - Multiple fractures of ribs, right side, initial encounter for closed fracture Pulmonary contusion Qualifiers: Encounter type: initial encounter Laterality: right Qualified Code(s): S27.321A - Contusion of lung, unilateral, initial encounter COPD (chronic obstructive pulmonary disease) Qualifiers: COPD type: COPD with acute exacerbation Qualified Code(s): J44.1 - Chronic obstructive pulmonary disease with (acute) exacerbation - Discharge Information - My Orders Last 24 Hours: My Active Orders 09/09/18 11:57 RT Aerosol Therapy [RC] ASDIRECTED 09/09/18 13:14 CBC WITH AUTO DIFF [HEME] Stat COMPREHENSIVE METABOLIC PN,CMP [CHEM] Stat 09/09/18 13:16 Sodium Chloride 0.9% [Saline Flush] 10 ml FLUSH ASDIRECTED PRN Sodium Chloride 0.9% [Saline Flush] 2.5 ml FLUSH ASDIRECTED PRN Saline Lock Insert [OM.PC] Stat 09/09/18 13:18 Admission Status [Patient Status] [ADT] Stat - Assessment/Plan Last 24 Hours: My Active Orders 09/09/18 11:57 RT Aerosol Therapy [RC] ASDIRECTED 09/09/18 13:14 CBC WITH AUTO DIFF [HEME] Stat COMPREHENSIVE METABOLIC PN,CMP [CHEM] Stat 09/09/18 13:16 Sodium Chloride 0.9% [Saline Flush] 10 ml FLUSH ASDIRECTED PRN Sodium Chloride 0.9% [Saline Flush] 2.5 ml FLUSH ASDIRECTED PRN Saline Lock Insert [OM.PC] Stat 09/09/18 13:18 Admission Status [Patient Status] [ADT] Stat
[2018-09-09] MEDS ORDERED: Albuterol/Ipratropium 3.0-0.5 MG/3 ML Neb Soln NEB ONE (11:57)
[2018-09-09] MEDS ORDERED: methylPREDNISolone Sodium Succinate 125 MG/2 ML SDV IM ONE (11:57)
--- NOTE | 2018-09-09 13:04 | CR ---
INDICATION: Trauma, pain, fell in the shower. TECHNIQUE: Chest 2 views. COMPARISON: None FINDINGS: The heart size is in the upper range of normal. Central vascular markings are within the normal range. There is patchy alveolar consolidation identified in the right lower lobe. Also, mildly displaced right lateral 9th and 10th ribs fractures are present. No pneumothorax is evident. The left lung is clear. A small right-sided pleural effusion/hemothorax is present. IMPRESSION: 1. Acute mildly displaced right lateral 9th and 10th rib fractures with associated pulmonary contusion involving the right lower lobe. 2. A small right-sided hemothorax is also noted Dictated by Zaid Domingo MD @ Sep 09 2018 12:58PM Signed by Dr. Zaid Domingo @ Sep 09 2018 1:02PM
--- NOTE | 2018-09-09 13:13 | CR ---
INDICATION: Fell in shower. TECHNIQUE: PA and lateral chest x-ray and 2 views right ribs. FINDINGS: Moderate hazy and alveolar infiltrate and atelectasis in the right lung base could be posttraumatic and related to pulmonary contusion given the history of fall. Mildly displaced acute fracture involving the right 8th rib and mildly displaced acute fractures involving the right 9th and 10th lateral ribs. No pneumothorax. Globular appearance of the heart with prominence of left ventricle. Heart is upper limits of normal to mildly enlarged. No focal infiltrate or consolidation in the left lung. Remainder negative. Dictated by Giuseppe Brower MD @ Sep 09 2018 1:08PM Signed by Dr. Giuseppe Brower @ Sep 09 2018 1:11PM
[2018-09-09] MEDS ORDERED: Sodium Chloride 0.9% 2.5 ML Syringe FLUSH PRN ×2 (13:16→14:01)
[2018-09-09] MEDS ORDERED: Morphine 2 MG/ML Syringe IVPUSH ONE (13:16)
[2018-09-09] MEDS ORDERED: Sodium Chloride 0.9% 10 ML Syringe FLUSH PRN ×2 (13:16→14:01)
[2018-09-09] MEDS ORDERED: Sodium Chloride 0.9% 10 ML SDV IV PRN (14:01)
[2018-09-09] MEDS ORDERED: diphenhydrAMINE 50 MG/ML SDV IVPUSH PRN (14:01)
[2018-09-09] MEDS ORDERED: Ondansetron 4 MG/2 ML SDV IVPUSH PRN (14:01)
[2018-09-09 14:06] LABS: CHLORIDE,CL 92 mmol/L (98-107); SODIUM,NA 126 mmol/L (136-145)
[2018-09-09] MEDS ORDERED: Lactated Ringers 1,000 ML IV SCH (14:15)
[2018-09-09] MEDS ORDERED: Ketorolac 15 MG/ML SDV IVPUSH SCH (14:15)
--- NOTE | 2018-09-09 14:19 | PCM.HP ---
H&P History of Present Illness - General Date of Service: 09/09/18 Admit Problem/Dx: Admission Diagnosis/Problem Admission Diagnosis/Problem Hemothorax on right Source of Information: Patient History Limitations: Reports: No Limitations - History of Present Illness Initial Comments - Free Text/Narative: Patient is a 53 year old female who fell yesterday in the shower. She hit the right side of her chest. She had no LOC. She experienced bruising and pain along the lateral aspect of her right lower ribs. She felt short of breath laying flat. She has a history of HTN, COPD and still smoking, as well as HLD. The pain and shortness of breath became too severe today so she presented to the ER. She has a chronic cough with her COPD, but since the fall this has gotten worse. Her oxygen level was 94% on RA on arrival. Vitals were stable. She was given a duo/neb with great improvement in her breathing. She had a CXR and rib xray that showed fractured 8-10 ribs, possible pulmonary contusion and a hemothorax. It was also mentioned that she may have some LVH. right back ribs Pain Score (Numeric/FACES): 9 - Related Data Allergies/Adverse Reactions: Allergies Allergy/AdvReac Type Severity Reaction Status Date / Time Penicillins Allergy Itching Verified 09/09/18 11:37 Home Medications: Home Meds Albuterol Sulfate [Proventil Hfa] 2 puff INH Q4H PRN 02/07/17 [History] Aspirin [Adult Low Dose Aspirin EC] 81 mg PO ASDIRECTED 02/07/17 [History] Budesonide/Formoterol Fumarate [Symbicort 80-4.5 Mcg Inhaler] 2 puff INH DAILY 02/07/17 [History] Carvedilol [Coreg] 6.25 mg PO BIDMEALS 02/07/17 [History] Multivitamin [Multi-Vitamin Daily] 1 each PO DAILY 02/07/17 [History] Sertraline [Zoloft] 50 mg PO BEDTIME 02/07/17 [History] Simvastatin [Zocor] 10 mg PO BEDTIME 02/07/17 [History] Past Medical History HEENT History: Reports: Other (See Below) Other HEENT History: uses corrective glasses Cardiovascular History: Reports: Arrhythmia, High Cholesterol, Hypertension Respiratory History: Reports: COPD, Other (See Below) Other Respiratory History: emphysema Gastrointestinal History: Reports: None Genitourinary History: Reports: None 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: Musculoskeletal History: Reports: Arthritis Neurological History: Reports: TIA Psychiatric History: Reports: Anxiety, Depression Endocrine/Metabolic History: Reports: None Hematologic History: Reports: Anemia Immunologic History: Reports: None Oncologic (Cancer) History: Reports: None Dermatologic History: Reports: None - Infectious Disease History Infectious Disease History: Reports: TB - Past Surgical History Head Surgeries/Procedures: Reports: None HEENT Surgical History: Reports: None Cardiovascular Surgical History: Reports: None Respiratory Surgical History: Reports: None GI Surgical History: Reports: None Female Surgical History: Reports: Section Endocrine Surgical History: Reports: None Neurological Surgical History: Reports: None Musculoskeletal Surgical History: Reports: None Dermatological Surgical History: Reports: None Social & Family History - Family History HEENT: Reports: None Cardiac: Reports: High Cholesterol, Hypertension, NE Respiratory: Reports: None GI: Reports: None : Reports: None OBGYN: Reports: Musculoskeletal: Reports: Arthritis, Gout Neurological: Reports: None Psychiatric: Reports: Anxiety, Depression Endocrine/Metabolic: Reports: None Hematologic: Reports: None Immunologic: Reports: None Dermatologic: Reports: None Oncologic: Reports: Lymphoma - Tobacco Use Smoking Status *Q: Current Every Day Smoker Years of Tobacco use: 30 Packs/Tins Daily: 0.7 - Caffeine Use Caffeine Use: Reports: Coffee, Soda, Tea - Recreational Drug Use Recreational Drug Use: No H&P Review of Systems - Review of Systems: Review Of Systems: ROS reveals no pertinent complaints other than HPI. Exam - Exam Exam: See Below - Vital Signs Vital Signs: Last Vital Signs Temp 35.4 C 09/09/18 11:38 Pulse 54 L 09/09/18 13:43 Resp 18 09/09/18 13:43 BP 139/84 09/09/18 13:43 Pulse Ox 92 L 09/09/18 13:43 Weight: 72.575 kg - Exam Quality Assessment: Supplemental Oxygen General: Alert, Oriented, Cooperative HEENT: Conjunctiva Clear, EACs Clear, EOMI, Mucosa Moist & [place], Nares Patent, Normal Nasal Septum, Posterior Pharynx Clear, Pupils Equal, Pupils Reactive Neck: Supple, Trachea Midline Lungs: Other (Rhonchi throughout the lung blackwell. Decreased BS to right base. Bruising along right lateral chest wall. ) Cardiovascular: Regular Rate, Regular Rhythm GI/Abdominal Exam: Soft, Non-Tender, No Distention, No Mass Back Exam: Normal Inspection, Full Range of Motion Extremities: Normal Range of Motion, Other (right wrist ganglion ) Neurological: Cranial Nerves Intact, Reflexes Equal Bilateral Neuro Extensive - Mental Status: Alert, Oriented x3, Normal Mood/Affect, Normal Cognition Neuro Extensive - Motor, Sensory, Reflexes: No: Motor/Sensory Deficits Psychiatric: Alert, Normal Affect, Normal Mood - Patient Data Lab Results Last 24 hrs: Laboratory Results - last 24 hr 09/09/18 09/09/18 09/09/18 Range/Units 12:00 13:28 13:28 WBC 9.93 (4.0-11.0) K/uL RBC 4.76 (4.30-5.90) M/uL Hgb 15.8 (12.0-16.0) g/dL Hct 45.7 (36.0-46.0) % MCV 96.0 (80.0-98.0) fL MCH 33.2 H (27.0-32.0) pg MCHC 34.6 (31.0-37.0) g/dL RDW Std Deviation 48.0 (28.0-62.0) fl RDW Coeff of Sara 14 (11.0-15.0) % Plt Count 236 (150-400) K/uL MPV 9.40 (7.40-12.00) fL Neut % (Auto) 77.6 (48.0-80.0) % Lymph % (Auto) 14.5 L (16.0-40.0) % Foster % (Auto) 6.6 (0.0-15.0) % Eos % (Auto) 1.2 (0.0-7.0) % Baso % (Auto) 0.1 (0.0-1.5) % Neut # (Auto) 7.7 H (1.4-5.7) K/uL Lymph # (Auto) 1.4 (0.6-2.4) K/uL Foster # (Auto) 0.7 (0.0-0.8) K/uL Eos # (Auto) 0.1 (0.0-0.7) K/uL Baso # (Auto) 0.0 (0.0-0.1) K/uL Nucleated RBC % 0.0 /100WBC Nucleated RBCs # 0 K/uL Sodium 126 L (136-145) mmol/L Potassium 5.2 H (3.5-5.1) mmol/L Chloride 92 L (98-107) mmol/L Carbon Dioxide 24.9 (21.0-32.0) mmol/L BUN 9 (7.0-18.0) mg/dL Creatinine 0.6 (0.6-1.0) mg/dL Est Cr Clr Drug Dosing 109.38 mL/min Estimated GFR (MDRD) > 60.0 ml/min Glucose 99 (74-106) mg/dL Calcium 9.3 (8.5-10.1) mg/dL Total Bilirubin 0.6 (0.2-1.0) mg/dL AST 27 (15-37) IU/L ALT 25 (14-63) IU/L Alkaline Phosphatase 85 (46-116) U/L Total Protein 8.0 (6.4-8.2) g/dL Albumin 4.6 (3.4-5.0) g/dL Globulin 3.4 (2.6-4.0) g/dL Albumin/Globulin Ratio 1.4 (0.9-1.6) Urine Color YELLOW Urine Appearance CLEAR Urine pH 6.0 (5.0-8.0) Ur Specific [place] 1.015 (1.001-1.035) Urine Protein NEGATIVE (NEGATIVE) mg/dL Urine Glucose (UA) NEGATIVE (NEGATIVE) mg/dL Urine Ketones NEGATIVE (NEGATIVE) mg/dL Urine Occult Blood SMALL H (NEGATIVE) Urine Nitrite NEGATIVE (NEGATIVE) Urine Bilirubin NEGATIVE (NEGATIVE) Urine Urobilinogen 0.2 (<2.0) EU/dL Ur Leukocyte Esterase NEGATIVE (NEGATIVE) Urine RBC 1-2 (0-2/HPF) Urine WBC 0-2 (0-5/HPF) Ur Epithelial Cells FEW (NONE-FEW) Urine Bacteria FEW (NEGATIVE) Result Diagrams: 09/09/18 13:28 09/09/18 13:28 - Problem List (1) Ribs, multiple fractures SNOMED Code(s): 1448949 ICD Code: S22.49XA - MULTIPLE FRACTURES OF RIBS, UNSP SIDE, INIT FOR CLOS FX Status: Acute Current Visit: Yes Qualifiers: Encounter type: initial encounter Fracture type: closed Laterality: right Qualified Code(s): S22.41XA - Multiple fractures of ribs, right side, initial encounter for closed fracture (2) Pulmonary contusion SNOMED Code(s): 080484287 ICD Code: S27.329A - CONTUSION OF LUNG, UNSPECIFIED, INITIAL ENCOUNTER Status: Acute Current Visit: Yes Qualifiers: Encounter type: initial encounter Laterality: right Qualified Code(s): S27.321A - Contusion of lung, unilateral, initial encounter (3) Hemothorax on right SNOMED Code(s): 40628422 ICD Code: J94.2 - HEMOTHORAX Status: Acute Current Visit: Yes (4) COPD (chronic obstructive pulmonary disease) SNOMED Code(s): 59864547 ICD Code: J44.9 - CHRONIC OBSTRUCTIVE PULMONARY DISEASE, UNSPECIFIED Status : Acute Current Visit: Yes Qualifiers: COPD type: COPD with acute exacerbation Qualified Code(s): J44.1 - Chronic obstructive pulmonary disease with (acute) exacerbation Problem List Initiated/Reviewed/Updated: Yes Orders Last 24hrs: Active Orders 24 hr Category Date Time Status Patient Status [ADT] Routine ADT 09/09/18 14:01 Ordered EKG 12 Lead [EKG Documentation Completion] [RC] STAT Care 09/09/18 14:06 Ordered Intake and Output [RC] QSHIFT Care 09/09/18 14:02 Ordered Oxygen Therapy [RC] PRN Care 09/09/18 14:01 Ordered RT Aerosol Therapy [RC] ASDIRECTED Care 09/09/18 11:57 Active RT Aerosol Therapy [RC] ASDIRECTED Care 09/09/18 14:05 Ordered RT Incentive Spirometry [RC] Q1HWA Care 09/09/18 14:01 Ordered Up ad Mary [RC] ASDIRECTED Care 09/09/18 14:01 Ordered Vital Signs [RC] PER UNIT ROUTINE Care 09/09/18 14:01 Ordered Respiratory Care Assess and Treatment [CONS] Routine Cons 09/09/18 14:01 Ordered Regular Diet [DIET] Diet 09/09/18 Lunch Ordered Acetaminophen/HYDROcodone [[place] 325-5 MG] Med 09/09/18 14:01 Active 2 tab PO Q4H PRN Albuterol/Ipratropium [DuoNeb 3.0-0.5 MG/3 ML] Med 09/09/18 18:00 Active 3 ml NEB Q6HRRT Carvedilol [Coreg] Med 09/09/18 21:00 Ordered 6.25 mg PO BID Ketorolac [Toradol] Med 09/09/18 14:15 Active 15 mg IVPUSH Q6H Lactated Ringers [Ringers, Lactated] 1,000 ml Med 09/09/18 14:15 Active IV .BOLUS Morphine Med 09/09/18 14:06 Active 2 mg IVPUSH Q2H PRN Ondansetron [Zofran] Med 09/09/18 14:01 Active 4 mg IVPUSH Q6H PRN Polyethylene Glycol 3350 [MiraLAX] Med 09/10/18 09:00 Active 17 gm PO DAILY Sertraline [Zoloft] Med 09/10/18 09:00 Ordered 50 mg PO DAILY Sodium Chloride 0.9% [Normal Saline] Med 09/09/18 14:01 Active 10 ml IV ASDIRECTED PRN Sodium Chloride 0.9% [Saline Flush] Med 09/09/18 13:16 Active 10 ml FLUSH ASDIRECTED PRN Sodium Chloride 0.9% [Saline Flush] Med 09/09/18 14:01 Active 10 ml FLUSH ASDIRECTED PRN Sodium Chloride 0.9% [Saline Flush] Med 09/09/18 13:16 Active 2.5 ml FLUSH ASDIRECTED PRN Sodium Chloride 0.9% [Saline Flush] Med 09/09/18 14:01 Active 2.5 ml FLUSH ASDIRECTED PRN diphenhydrAMINE [Benadryl] Med 09/09/18 14:01 Active 25 mg IVPUSH Q4H PRN Peripheral IV Insertion Adult [OM.PC] Urgent Oth 09/09/18 14:01 Ordered Saline Lock Insert [OM.PC] Stat Oth 09/09/18 13:16 Ordered Resuscitation Status Routine Resus Stat 09/09/18 14:01 Ordered Medication Orders Hydrocodone Bitart/Acetaminophen ([place] 325-5 Mg) 2 tab PO Q4H PRN PRN Reason: Pain (moderate 4-6) Albuterol/Ipratropium (Duoneb 3.0-0.5 Mg/3 Ml) 3 ml NEB Q6HRRT SAEID Carvedilol (Coreg) 6.25 mg PO BID SAEID Diphenhydramine HCl (Benadryl) 25 mg IVPUSH Q4H PRN PRN Reason: Itching Lactated Ringer's (Ringers, Lactated) 1,000 mls @ 999 mls/hr IV .BOLUS SAEID Ketorolac Tromethamine (Toradol) 15 mg IVPUSH Q6H SAEID Stop: 09/10/18 08:16 Morphine Sulfate (Morphine) 2 mg IVPUSH Q2H PRN PRN Reason: Pain Ondansetron HCl (Zofran) 4 mg IVPUSH Q6H PRN PRN Reason: Nausea/Vomiting Polyethylene Glycol (Miralax) 17 gm PO DAILY SAEID Sertraline HCl (Zoloft) 50 mg PO DAILY [facility] Sodium Chloride (Saline Flush) 10 ml FLUSH ASDIRECTED PRN PRN Reason: Keep Vein Open Last Admin: 09/09/18 13:46 Dose: 10 ml Sodium Chloride (Saline Flush) 2.5 ml FLUSH ASDIRECTED PRN PRN Reason: Keep Vein Open Last Admin: 09/09/18 13:46 Dose: 2.5 ml Sodium Chloride (Saline Flush) 10 ml FLUSH ASDIRECTED PRN PRN Reason: Keep Vein Open Sodium Chloride (Saline Flush) 2.5 ml FLUSH ASDIRECTED PRN PRN Reason: Keep Vein Open Sodium Chloride (Normal Saline) 10 ml IV ASDIRECTED PRN PRN Reason: IV Use Assessment/Plan Comment:: -Pain: IV morphine prn, norco prn, scheduled toradol -CV: Has a history of an "arrythmia". EXG shows left atrial enlargement, minimal ST depression, and ventricular bigeminy. Will order home coreg. -Pulm: IS use every hour. Scheduled duo nebs q 6hr. Will get Chest CT to better characterize the rib fractures, hemothorax and contusion. -GI: Regular diet -Renal: Hyponatremic and mild hyperkalemia. Will repeat labs in 6 hours. Will give 1L of NS and have a maintenance rate of 75ml/hr. BUN/Cr normal. -Heme/ID: WBC normal. Hgb normal range. Will monitor. -Px: SCDs, no need for GI prophylaxis.
[2018-09-09] MEDS ORDERED: Sodium Chloride 0.9% 1,000 ML IV ONE (14:30)
[2018-09-09] MEDS: Acetaminophen/HYDROcodone 325-5 MG Tab PO PRN (17:14)
[2018-09-09] MEDS: Albuterol/Ipratropium 3.0-0.5 MG/3 ML Neb Soln NEB SCH (17:49)
[2018-09-09] MEDS: Nicotine 14 MG/24 Hr Patch TRDERM SCH (19:15)
[2018-09-09] MEDS: Sodium Chloride 0.9% 1,000 ML IV SCH (19:26)
[2018-09-09] MEDS: Carvedilol 6.25 MG Tab PO SCH (20:50)
[2018-09-09] MEDS: Morphine 2 MG/ML Syringe IVPUSH PRN (20:50)
[2018-09-09] MEDS ORDERED: Sertraline 50 MG Tab PO SCH (21:00)
[2018-09-09] MEDS: Ketorolac 15 MG/ML SDV IVPUSH SCH (22:42)
[2018-09-10] MEDS: Albuterol/Ipratropium 3.0-0.5 MG/3 ML Neb Soln NEB SCH ×3 (00:18→12:09)
[2018-09-10] MEDS: Acetaminophen/HYDROcodone 325-5 MG Tab PO PRN ×3 (00:19→13:06)
[2018-09-10] MEDS: Morphine 2 MG/ML Syringe IVPUSH PRN (03:56)
[2018-09-10] MEDS: Ketorolac 15 MG/ML SDV IVPUSH SCH ×2 (05:34→10:33)
[2018-09-10] MEDS: Sodium Chloride 0.9% 1,000 ML IV SCH (06:30)
[2018-09-10 06:54] LABS: CHLORIDE,CL 96 mmol/L (98-107); SODIUM,NA 130 mmol/L (136-145)
--- NOTE | 2018-09-10 07:07 | CR ---
HISTORY: Rib fracture. TECHNIQUE: Portable frontal view the chest. COMPARISON: Chest x-ray and rib series 09/09/2018. Chest CT 09/09/2018. FINDINGS: Low lung volumes with bibasilar atelectasis. Small right pleural effusion. No pneumothorax. Pulmonary vasculature is within normal limits. Cardiomediastinal silhouette size is upper normal. Right rib fractures are not well visualized. IMPRESSION: Bibasilar atelectasis and small right pleural effusion. Right rib fractures are not well visualized. No pneumothorax. Dictated by Vito Merritt MD @ Sep 10 2018 6:59AM Signed by Dr. Vito Merritt @ Sep 10 2018 7:05AM
[2018-09-10] MEDS: Carvedilol 6.25 MG Tab PO SCH (08:58)
[2018-09-10] MEDS: Nicotine 14 MG/24 Hr Patch TRDERM SCH (08:59)
[2018-09-10] MEDS ORDERED: Polyethylene Glycol 3350 Powder 17 GM Packet PO SCH (09:00)
[2018-09-10] MEDS ORDERED: Sertraline 50 MG Tab PO SCH (09:00)
--- NOTE | 2018-09-10 10:43 | PCM.DCSUM1 ---
Discharge Summary - Hospital Course Free Text/Narrative:: Patient is a 53 year old female who presented to the ER with SOB and chest pain. The day before presentation, she slipped in the tub and hit her right side on the edge of it. She had bruising and chest pain which became more severe over the next 24 hours. She is said shortness of breath that became worse. Chest x-ray and rib x-ray in the ER showed multiple fractured ribs with a small hemothorax. I was consulted and obtained a CT of the chest which showed a comminuted fracture of the ninth rib posteriorly associated with an anterior fracture as well making it a flail segment. She had 2 other fractures as well. There is a small amount of hematoma in the right lower chest associated with a couple spots of air and pulmonary contusion. She was given a nebulizer treatment in the ER with great relief in her shortness of breath. Her BMP showed hyponatremia as well as hyperkalemia. With the albuterol treatment her hyperkalemia resolved. She was started on normal saline which slowly corrected her hyponatremia. She is on 2 L of oxygen overnight and had scheduled nebulizer treatments with DuoNeb. She is feeling well this morning. Her pain is well controlled with Toradol and [place]. She feels her breathing is better and she is coughing up less phlegm. Her vital signs were stable overnight. She was weaned off the 2 L of oxygen. Given her improvement she was discharged home. - Discharge Data Discharge Date: 09/10/18 Discharge Disposition: Home, Self-Care 01 Condition: Fair - Discharge Diagnosis/Problem(s) (1) Ribs, multiple fractures SNOMED Code(s): 1998968 ICD Code: S22.49XA - MULTIPLE FRACTURES OF RIBS, UNSP SIDE, INIT FOR CLOS FX Status: Acute Qualifiers: Encounter type: initial encounter Fracture type: closed Laterality: right Qualified Code(s): S22.41XA - Multiple fractures of ribs, right side, initial encounter for closed fracture (2) Pulmonary contusion SNOMED Code(s): 239393305 ICD Code: S27.329A - CONTUSION OF LUNG, UNSPECIFIED, INITIAL ENCOUNTER Status: Acute Qualifiers: Encounter type: initial encounter Laterality: right Qualified Code(s): S27.321A - Contusion of lung, unilateral, initial encounter (3) Hemothorax on right SNOMED Code(s): 88840971 ICD Code: J94.2 - HEMOTHORAX Status: Acute (4) COPD (chronic obstructive pulmonary disease) SNOMED Code(s): 50376056 ICD Code: J44.9 - CHRONIC OBSTRUCTIVE PULMONARY DISEASE, UNSPECIFIED Status : Acute Qualifiers: COPD type: COPD with acute exacerbation Qualified Code(s): J44.1 - Chronic obstructive pulmonary disease with (acute) exacerbation - Patient Summary/Data Consults: Consultations 09/09/18 14:01 Respiratory Care Assess and Treatment [CONS] Routine - Patient Instructions Diet: Regular Diet as Tolerated Activity: No Lifting Over 20 Pounds (for one month), Rest and Relax Today Activity, Other: No work for one week Driving: Do Not Drive (for one week ) Showering/Bathing: May Shower Notify Provider of: Fever, Increased Pain, Swelling and Redness, Drainage, Nausea and/or Vomiting Other/Special Instructions: Come back to ER if having increasing SOB. - Discharge Plan *PRESCRIPTION DRUG MONITORING PROGRAM REVIEWED*: Yes *COPY OF PRESCRIPTION DRUG MONITORING REPORT IN PATIENT STEFANIE: Yes Prescriptions/Med Rec: Albuterol/Ipratropium [DuoNeb 3.0-0.5 MG/3 ML] 3 ml NEB Q6HRRT PRN #30 neb PRN Reason: Shortness Of Breath Nicotine [Habitrol] 14 mg TRDERM DAILY #14 patch Home Medications: Home Meds Albuterol Sulfate [Proventil Hfa] 2 puff INH Q4H PRN 02/07/17 [History] Aspirin [Adult Low Dose Aspirin EC] 81 mg PO ASDIRECTED 02/07/17 [History] Budesonide/Formoterol Fumarate [Symbicort 80-4.5 Mcg Inhaler] 2 puff INH DAILY 02/07/17 [History] Carvedilol [Coreg] 6.25 mg PO BIDMEALS 02/07/17 [History] Multivitamin [Multi-Vitamin Daily] 1 each PO DAILY 02/07/17 [History] Sertraline [Zoloft] 50 mg PO BEDTIME 02/07/17 [History] Simvastatin [Zocor] 10 mg PO BEDTIME 02/07/17 [History] Albuterol/Ipratropium [DuoNeb 3.0-0.5 MG/3 ML] 3 ml NEB Q6HRRT PRN #30 neb 09/10 [Rx] Nicotine [Habitrol] 14 mg TRDERM DAILY #14 patch 09/10/18 [Rx] Patient Handouts: Acetaminophen; Hydrocodone tablets or capsules, Budesonide; Formoterol Inhalation, Hemothorax, Albuterol inhalation aerosol, Carvedilol tablets, Nicotine skin patches, Ketorolac tablets Referrals: Kelly Montoya MD [Physician] - 10/11/18 10:00 am Ekta Adame MD [Physician] - 09/26/18 1:30 pm - Discharge Summary/Plan Comment DC Time >30 min.: No - General Info Functional Status: Reports: Pain Controlled, Tolerating Diet, Ambulating, Urinating - Review of Systems General: Reports: No Symptoms HEENT: Reports: No Symptoms Pulmonary: Reports: Cough Cardiovascular: Reports: No Symptoms Gastrointestinal: Reports: No Symptoms Genitourinary: Reports: No Symptoms Musculoskeletal: Reports: No Symptoms - Patient Data Vitals - Most Recent: Last Vital Signs Temp 36.1 C 09/10/18 07:31 Pulse 94 09/10/18 08:58 Resp 20 09/10/18 07:31 BP 136/88 09/10/18 08:58 Pulse Ox 94 L 09/10/18 07:31 Weight - Most Recent: 73.618 kg I&O - Last 24 hours: Intake & Output 09/09/18 09/10/18 09/10/18 22:59 06:59 14:59 Intake Total 0 3713 Output Total 0 2900 Balance 0 813 Lab Results - Last 24 hrs: Laboratory Results - last 24 hr 09/09/18 09/09/18 09/09/18 Range/Units 12:00 13:28 13:28 WBC 9.93 (4.0-11.0) K/uL RBC 4.76 (4.30-5.90) M/uL Hgb 15.8 (12.0-16.0) g/dL Hct 45.7 (36.0-46.0) % MCV 96.0 (80.0-98.0) fL MCH 33.2 H (27.0-32.0) pg MCHC 34.6 (31.0-37.0) g/dL RDW Std Deviation 48.0 (28.0-62.0) fl RDW Coeff of Sara 14 (11.0-15.0) % Plt Count 236 (150-400) K/uL MPV 9.40 (7.40-12.00) fL Neut % (Auto) 77.6 (48.0-80.0) % Lymph % (Auto) 14.5 L (16.0-40.0) % [place] % (Auto) 6.6 (0.0-15.0) % Eos % (Auto) 1.2 (0.0-7.0) % Baso % (Auto) 0.1 (0.0-1.5) % Neut # (Auto) 7.7 H (1.4-5.7) K/uL Lymph # (Auto) 1.4 (0.6-2.4) K/uL [place] # (Auto) 0.7 (0.0-0.8) K/uL Eos # (Auto) 0.1 (0.0-0.7) K/uL Baso # (Auto) 0.0 (0.0-0.1) K/uL Nucleated RBC % 0.0 /100WBC Nucleated RBCs # 0 K/uL Sodium 126 L (136-145) mmol/L Potassium 5.2 H (3.5-5.1) mmol/L Chloride 92 L (98-107) mmol/L Carbon Dioxide 24.9 (21.0-32.0) mmol/L BUN 9 (7.0-18.0) mg/dL Creatinine 0.6 (0.6-1.0) mg/dL Est Cr Clr Drug Dosing 109.38 mL/min Estimated GFR (MDRD) > 60.0 ml/min Glucose 99 (74-106) mg/dL Calcium 9.3 (8.5-10.1) mg/dL Total Bilirubin 0.6 (0.2-1.0) mg/dL AST 27 (15-37) IU/L ALT 25 (14-63) IU/L Alkaline Phosphatase 85 (46-116) U/L Creatine Kinase (26-308) U/L Troponin I (0.000-0.056) ng/mL Total Protein 8.0 (6.4-8.2) g/dL Albumin 4.6 (3.4-5.0) g/dL Globulin 3.4 (2.6-4.0) g/dL Albumin/Globulin Ratio 1.4 (0.9-1.6) Urine Color YELLOW Urine Appearance CLEAR Urine pH 6.0 (5.0-8.0) Ur Specific [place] 1.015 (1.001-1.035) Urine Protein NEGATIVE (NEGATIVE) mg/dL Urine Glucose (UA) NEGATIVE (NEGATIVE) mg/dL Urine Ketones NEGATIVE (NEGATIVE) mg/dL Urine Occult Blood SMALL H (NEGATIVE) Urine Nitrite NEGATIVE (NEGATIVE) Urine Bilirubin NEGATIVE (NEGATIVE) Urine Urobilinogen 0.2 (<2.0) EU/dL Ur Leukocyte Esterase NEGATIVE (NEGATIVE) Urine RBC 1-2 (0-2/HPF) Urine WBC 0-2 (0-5/HPF) Ur Epithelial Cells FEW (NONE-FEW) Urine Bacteria FEW (NEGATIVE) 09/09/18 09/09/18 09/10/18 Range/Units 13:28 18:49 05:49 WBC (4.0-11.0) K/uL RBC (4.30-5.90) M/uL Hgb (12.0-16.0) g/dL Hct (36.0-46.0) % MCV (80.0-98.0) fL MCH (27.0-32.0) pg MCHC (31.0-37.0) g/dL RDW Std Deviation (28.0-62.0) fl RDW Coeff of Sara (11.0-15.0) % Plt Count (150-400) K/uL MPV (7.40-12.00) fL Neut % (Auto) (48.0-80.0) % Lymph % (Auto) (16.0-40.0) % [place] % (Auto) (0.0-15.0) % Eos % (Auto) (0.0-7.0) % Baso % (Auto) (0.0-1.5) % Neut # (Auto) (1.4-5.7) K/uL Lymph # (Auto) (0.6-2.4) K/uL [place] # (Auto) (0.0-0.8) K/uL Eos # (Auto) (0.0-0.7) K/uL Baso # (Auto) (0.0-0.1) K/uL Nucleated RBC % /100WBC Nucleated RBCs # K/uL Sodium 128 L 130 L (136-145) mmol/L Potassium 4.7 4.5 (3.5-5.1) mmol/L Chloride 94 L 96 L (98-107) mmol/L Carbon Dioxide 21.6 24.6 (21.0-32.0) mmol/L BUN 11 7 (7.0-18.0) mg/dL Creatinine 1.0 0.6 (0.6-1.0) mg/dL Est Cr Clr Drug Dosing 65.63 109.38 mL/min Estimated GFR (MDRD) 58.0 > 60.0 ml/min Glucose 223 H 114 H (74-106) mg/dL Calcium 8.6 8.5 (8.5-10.1) mg/dL Total Bilirubin (0.2-1.0) mg/dL AST (15-37) IU/L ALT (14-63) IU/L Alkaline Phosphatase (46-116) U/L Creatine Kinase 251 (26-308) U/L Troponin I < 0.050 (0.000-0.056) ng/mL Total Protein (6.4-8.2) g/dL Albumin (3.4-5.0) g/dL Globulin (2.6-4.0) g/dL Albumin/Globulin Ratio (0.9-1.6) Urine Color Urine Appearance Urine pH (5.0-8.0) Ur Specific [place] (1.001-1.035) Urine Protein (NEGATIVE) mg/dL Urine Glucose (UA) (NEGATIVE) mg/dL Urine Ketones (NEGATIVE) mg/dL Urine Occult Blood (NEGATIVE) Urine Nitrite (NEGATIVE) Urine Bilirubin (NEGATIVE) Urine Urobilinogen (<2.0) EU/dL Ur Leukocyte Esterase (NEGATIVE) Urine RBC (0-2/HPF) Urine WBC (0-5/HPF) Ur Epithelial Cells (NONE-FEW) Urine Bacteria (NEGATIVE) Med Orders - Current: Current Medications Hydrocodone Bitart/Acetaminophen ([place] 325-5 Mg) 2 tab PO Q4H PRN PRN Reason: Pain (moderate 4-6) Last Admin: 09/10/18 08:57 Dose: 2 tab Albuterol/Ipratropium (Duoneb 3.0-0.5 Mg/3 Ml) 3 ml NEB Q6HRRT [facility] Last Admin: 09/10/18 05:57 Dose: 3 ml Carvedilol (Coreg) 6.25 mg PO BID [facility] Last Admin: 09/10/18 08:58 Dose: 6.25 mg Diphenhydramine HCl (Benadryl) 25 mg IVPUSH Q4H PRN PRN Reason: Itching Ketorolac Tromethamine (Toradol) 15 mg IVPUSH Q6H [facility] Stop: 09/10/18 11:01 Last Admin: 09/10/18 10:33 Dose: 15 mg Morphine Sulfate (Morphine) 2 mg IVPUSH Q2H PRN PRN Reason: Pain Last Admin: 09/10/18 03:56 Dose: 2 mg Nicotine (Habitrol) 14 mg TRDERM DAILY [facility] Last Admin: 09/10/18 08:59 Dose: 14 mg Ondansetron HCl (Zofran) 4 mg IVPUSH Q6H PRN PRN Reason: Nausea/Vomiting Polyethylene Glycol (Miralax) 17 gm PO DAILY [facility] Last Admin: 09/10/18 08:59 Dose: 17 gm Sertraline HCl (Zoloft) 50 mg PO BEDTIME [facility] Last Admin: 09/09/18 20:50 Dose: 50 mg Sodium Chloride (Saline Flush) 10 ml FLUSH ASDIRECTED PRN PRN Reason: Keep Vein Open Last Admin: 09/09/18 13:46 Dose: 10 ml Sodium Chloride (Saline Flush) 2.5 ml FLUSH ASDIRECTED PRN PRN Reason: Keep Vein Open Last Admin: 09/09/18 13:46 Dose: 2.5 ml Sodium Chloride (Saline Flush) 10 ml FLUSH ASDIRECTED PRN PRN Reason: Keep Vein Open Sodium Chloride (Saline Flush) 2.5 ml FLUSH ASDIRECTED PRN PRN Reason: Keep Vein Open Sodium Chloride (Normal Saline) 10 ml IV ASDIRECTED PRN PRN Reason: IV Use Discontinued Medications Albuterol/Ipratropium (Duoneb 3.0-0.5 Mg/3 Ml) 3 ml NEB ONETIME ONE Stop: 09/09/18 11:58 Last Admin: 09/09/18 12:30 Dose: 3 ml Lactated Ringer's (Ringers, Lactated) 1,000 mls @ 999 mls/hr IV .BOLUS [facility] Sodium Chloride (Normal Saline) 1,000 mls @ 1,000 mls/hr IV .Bolus ONE Stop: 09/09/18 15:29 Last Admin: 09/09/18 16:52 Dose: 1,000 mls/hr Sodium Chloride (Normal Saline) 1,000 mls @ 75 mls/hr IV ASDIRECTED [facility] Last Admin: 09/10/18 06:30 Dose: 75 mls/hr Ketorolac Tromethamine (Toradol) 15 mg IVPUSH Q6H [facility] Stop: 09/10/18 08:16 Last Admin: 09/09/18 16:53 Dose: 15 mg Methylprednisolone Sodium Succinate (Solu-Medrol) 125 mg IM ONETIME ONE Stop: 09/09/18 11:58 Last Admin: 09/09/18 12:54 Dose: 125 mg Morphine Sulfate (Morphine) 2 mg IVPUSH ONETIME ONE Stop: 09/09/18 13:17 Last Admin: 09/09/18 13:42 Dose: 2 mg Sertraline HCl (Zoloft) 50 mg PO DAILY [facility] - Exam Quality Assessment: Reports: Supplemental Oxygen General: Reports: Alert, Oriented, Cooperative HEENT: Reports: Pupils Equal, Pupils Reactive Neck: Reports: Supple Lungs: Reports: Normal Respiratory Effort, Other (no breath sounds at the base of the right chest wall, otherwise remainder of breath sounds improved with decreased rhonchi and wheezing) Cardiovascular: Reports: Regular Rate GI/Abdominal Exam: Soft, Non-Tender, No Distention, No Mass
[2018-09-10 10:48] LABS: HEMOGLOBIN A1C 5.6 % (4.5-6.2)
--- NOTE | 2018-09-10 11:41 | CT ---
EXAM DATE: 09/09/18 PATIENT'S AGE: 53 Patient: MAYRA RICKS Facility: [facility] Site Site : [id number] Study: CT-Chest WO CONT [id number]/12/2019 3:54:50 PM Ordering Physician: ZULEMA NGUYEN MD Final Report: INDICATION: Patient fell last night and shower and landed on ribs. Pulmonary contusion. Hemothorax. Rib fractures. TECHNIQUE: CT chest without IV contrast. FINDINGS: Mildly displaced acute fracture involving the right 8th anterior rib. Mildly displaced acute fracture involving the right 9th anterior rib. Mild to moderately displaced acute comminuted fracture involving the right 9th posterior lateral rib. Mildly displaced acute fracture involving the right 11th posterior rib. Air in the soft tissues of the right posterior lateral chest wall related to the rib fractures. No left-sided rib fractures. Moderate atherosclerotic coronary artery calcification. Tiny amounts of air in the right pleural space should be posttraumatic and are seen in the right mid and lower chest posteriorly. Small to intermediate amount of complex pleural fluid in the right mid and lower chest posteriorly contains increased density and would be consistent with acute hemothorax. Without IV contrast I cannot evaluate for active bleeding in the right chest. Moderate amount of dense infiltrate and consolidation in the right lower lobe may be related to pulmonary contusion. Mild platelike atelectasis and scarring in the lungs elsewhere. 3 mm uncalcified nodule in the left upper lobe. Mild thickening of the adrenal glands consistent with hyperplasia. Nonspecific gas distention of bowel loops in the upper abdomen. Minimal ectasia of the ascending thoracic aorta. Remainder negative. IMPRESSION: 1. Scattered mild to moderately displaced acute fractures involving right mid and lower anterior and posterior ribs including fractures involving the right 9th rib both anteriorly and posteriorly with intervening moderate-sized free fracture fragment. Small to moderate amount of complex pleural fluid in the right mid and lower chest posteriorly consistent with acute hemothorax. Without IV contrast I cannot evaluate for active bleeding. Moderate amount of dense infiltrate and consolidation in the right lower lobe likely related to pulmonary contusion and posttraumatic with some associated atelectasis. Small foci of air within the right mid and lower posterior pleural space posttraumatic. More diffuse foci of air in the soft tissues of the right mid and lower chest wall posttraumatic. 2. Moderate atherosclerotic coronary artery calcification. 3. Small uncalcified nodule left lung nonspecific. Other findings as above. Please note that all CT scans at this facility use dose modulation, iterative reconstruction, and/or weight-based dosing when appropriate to reduce radiation dose to as low as reasonably achievable. Dictated by Giuseppe Brower MD @ Sep 09 2018 4:23PM Signed by: Giuseppe Brower MD @09/09/2018 4:26:41 PM (Electronic Signature) Report Signed by Proxy. MTDD
== END 2018-09-10 13:00 | disposition home or self-care (01) ==
LOC: MW.ED 11:30 → MW.MS 14:07
PROVIDERS: ADMIT Surgery; ATTEND Surgery
DX: S27.321A Contusion of lung, unilateral, initial encounter (principal); S22.5XXA Flail chest, initial encounter for closed fracture; J94.2 Hemothorax; J44.1 Chronic obstructive pulmonary disease with (acute) exacerbation; E87.1 Hypo-osmolality and hyponatremia; E87.5 Hyperkalemia; I10 Essential (primary) hypertension; E78.00 Pure hypercholesterolemia, unspecified; F17.200 Nicotine dependence, unspecified, uncomplicated; F32.9 Major depressive disorder, single episode, unspecified; W01.198A Fall on same level from slipping, tripping and stumbling with subsequent striking against other object, initial encounter; Z88.0 Allergy status to penicillin; Z79.82 Long term (current) use of aspirin; Z79.51 Long term (current) use of inhaled steroids; Z79.899 Other long term (current) drug therapy
CPT/HCPCS: 36415; 71045; 71046; 71100; 71250; 80048; 80053; 81001; 82550; 83036; 84484; 85025; 93005; 94640; 96361; 96372; 96374; 96375; 96376; 99285; A9270; G0378; J1885; J2270; J2930; J7040; J7620-GY

== ENCOUNTER 2019-12-12 19:49 | Emergency (ER) | payer MEDICAID ==
[2019-12-12 21:02] LABS: BLOOD UREA NITROGEN,BUN 8 mg/dL (7.0-18.0); CARBON DIOXIDE,CO2 26.6 mmol/L (21.0-32.0); CHLORIDE,CL 91 mmol/L (98-107); GLUCOSE RANDOM 113 mg/dL (74-106); POTASSIUM,K 4.2 mmol/L (3.5-5.1); SODIUM,NA 126 mmol/L (136-145)
[2019-12-12] MEDS ORDERED: Sodium Chloride 0.9% 1,000 ML IV ONE (21:09)
--- NOTE | 2019-12-12 21:18 | EDM.PDOC ---
<MargyNasim - Last Filed: 12/13/19 01:31> ED HPI GENERAL MEDICAL PROBLEM - General Chief Complaint: AGRICULTURAL ADVISER Problem Stated Complaint: HEMORRHAGING Time Seen by Provider: 12/12/19 19:52 - History of Present Illness INITIAL COMMENTS - FREE TEXT/NARRATIVE: Case signed out to me at 10:30 PM: Pelvic exam: Small amount of clot removed from vaginal vault. Minimal bleeding identified coming from the cervical loss. Bimanual exam unremarkable. No cervical motion tenderness. No palpable adnexal masses appreciated. Ultrasound report impression: A 5.2 cm vascular mass right of the lower uterine segment, unclear if of uterine or adnexal origin. The right ovary is possibly seen separate from this mass on transabdominal images. Nonvisualization of the left ovary. Recommend further evaluation with contrast MRI. Limited evaluation of the endometrium which measures up to 1 cm transabdominally. Demonstrating hypoechoic appearance which could represent fluid. If the patient is postmenopausal this is abnormal, and further evaluation is recommended to exclude neoplasm. Given abnormal ultrasound results, I have paged Dr. Sanford. Dr. Saez covering for Dr. Sanford has called back. She is reviewed the ultrasound report with me and has reviewed the patient's clinic chart. Patient is clinically hemodynamically stable for discharge to home and no need for emergent intervention at this time however Dr. Zaragoza will contact Dr. Sanford's nurse in the morning and they will call the patient to assure urgent follow-up. They will try to squeeze her in today to further evaluate the abnormality seen on the ultrasound for possible neoplastic lesion. I have reviewed the ultrasound report with the patient as well as the current plan with Dr. Sanford through Dr. Saez. She is in agreement with the current plan and has verbalized appreciation for the care. Patient has not had any significant bleeding since her pelvic exam by me earlier over the last 2 hours. Reassessment at the time of disposition demonstrates that the patient is in no acute distress. The patient has remained stable throughout the entire ED visit and is without objective evidence for acute process requiring urgent interventi on or hospitalization. The patient is stable for discharge, counseling is provided as documented above, discussed symptomatic treatment and specific conditions for return. I have spoken with the patient/caregive and discussed todays findings, in addition to providing specific details for the plan of care. Questions are answered and there is agreement with the plan. - Related Data Allergies Allergy/AdvReac Type Severity Reaction Status Date / Time No Known Allergies Allergy Verified 12/12/19 20:07 Home Meds: Home Meds Albuterol Sulfate [Proventil Hfa] 2 puff INH Q4H PRN 02/07/17 [History] Aspirin [Adult Low Dose Aspirin EC] 81 mg PO ASDIRECTED 02/07/17 [History] Budesonide/Formoterol Fumarate [Symbicort 80-4.5 MCG] 2 puff INH DAILY 02/07/17 [History] Carvedilol [Coreg] 6.25 mg PO BIDMEALS 02/07/17 [History] Multivitamin [Multi-Vitamin Daily] 1 each PO DAILY 02/07/17 [History] Sertraline [Zoloft] 50 mg PO BEDTIME 02/07/17 [History] Simvastatin [Zocor] 10 mg PO BEDTIME 02/07/17 [History] Albuterol/Ipratropium [DuoNeb 3.0-0.5 MG/3 ML] 3 ml NEB Q6HRRT PRN #30 neb 09/10/18 [Rx] Nicotine [Habitrol] 14 mg TRDERM DAILY #14 patch 09/10/18 [Rx] Departure - Departure Time of Disposition: 01:35 Disposition: Home, Self-Care 01 Condition: Good Clinical Impression: Dysfunctional uterine bleeding - Discharge Information Instructions: Dysfunctional Uterine Bleeding Referrals: Marce Bowers EXTERNAL RELATIONS MANAGER [Primary Care Provider] - Forms: ED Department Discharge Additional Instructions: You have been seen and evaluated today because of your vaginal bleeding. The ultrasound report is concerning for a vascular mass near your uterus which is concerning for possible neoplasm. We have spoken to Dr. Sanford service this evening and Dr. Sanford's nurse will call you this morning for an appointment to be seen later on today. Please return to the ER if you have any increased bleeding or new concerns. The following information is given to patients seen in the emergency department who are being discharged to home. This information is to outline your options for follow-up care. We provide all patients seen in our emergency department with a follow-up referral. The need for follow-up, as well as the timing and circumstances, are variable depending upon the specifics of your emergency department visit. If you don't have a primary care physician on staff, we will provide you with a referral. We always advise you to contact your personal physician following an emergency department visit to inform them of the circumstance of the visit and for follow-up with them and/or the need for any referrals to a consulting specialist. The emergency department will also refer you to a specialist when appropriate. This referral assures that you have the opportunity for follow-up care with a specialist. All of these measure are taken in an effort to provide you with optimal care, which includes your follow-up. Under all circumstances we always encourage you to contact your private physician who remains a resource for coordinating your care. When calling for follow-up care, please make the office aware that this follow-up is from your recent emergency room visit. If for any reason you are refused follow-up, please contact the [facility] Emergency Department at and asked to speak to the emergency department charge nurse. <Yoli Tyalor - Last Filed: 12/13/19 10:24> ED HPI GENERAL MEDICAL PROBLEM - General Source of Information: Reports: Patient History Limitations: Reports: No Limitations - History of Present Illness INITIAL COMMENTS - FREE TEXT/NARRATIVE: HISTORY AND PHYSICAL: History of present illness: Patient is a 54-year-old female who presents to the ED today with concern of heavy vaginal bleeding and lower abdominal cramping that occurred just prior to arrival to the ED. patient also complains of feeling dizzy and forgetful. Patient states she has been having issues with heavy bleeding and has been on trans-examined acid by Dr. Sanford at [facility]. Patient states she has had heavy bleeding over the past several months and has been using trans-examined acid to stop bleeding. Patient states usually this works, however, today it did not. Patient states that she takes 2 pills 3 times a day. Patient states that she took her medication this morning and this afternoon and started having heavy bleeding. Patient states she is passing big clots and does feel anxious and lightheaded. Patient states she has an appointment scheduled to get an ultrasound this next week and has had an endometrial biopsy that came back inconclusive according to patient. Patient denies fever, chills, chest pain, shortness of breath, or cough. Denies headache, neck stiff ness, change in vision, syncope, or near syncope. Denies nausea, vomiting, abdominal pain, diarrhea, constipation, or dysuria. Has not noted any blood in urine or stool. Patient has been eating and drinking appropriately. Review of systems: As per history of present illness and below otherwise all systems reviewed and negative. Past medical history: As per history of present illness and as reviewed below otherwise noncontributory. Surgical history: As per history of present illness and as reviewed below otherwise noncontributory. Social history: See social history for further information Family history: As per history of present illness and as reviewed below otherwise noncontributory. Physical exam: General: Patient is alert, oriented, and in no acute distress. Patient sitting comfortably on exam table but anxious and tearful on exam. HEENT: Atraumatic, normocephalic, pupils equal and reactive bilaterally, negative for conjunctival pallor or scleral icterus, mucous membranes moist, TMs normal bilaterally, throat clear, neck supple, nontender, trachea midline. No drooling or trismus noted. No meningeal signs. No hot potato voice noted. Lungs: Clear to auscultation, breath sounds equal bilaterally, chest nontender. Heart: S1S2, regular rate and rhythm without overt murmur Abdomen: Soft, nondistended, nontender. Negative for masses or hepatosplenomegaly. Negative for costovertebral tenderness. Pelvis: Stable nontender. Genitourinary: Deferred. Rectal: Deferred. Skin: Intact, warm, dry. No lesions or rashes noted. Extremities: Atraumatic, negative for cords or calf pain. Neurovascular unremarkable. Neuro: Awake, alert, oriented. Cranial nerves II through XII unremarkable. Cerebellum unremarkable. Motor and sensory unremarkable throughout. Exam nonfocal. Notes: Dr. Ji has assumed care and will follow remaining diagnostics and disposition. Diagnostics: CBC, CMP, UA, serum hcg, TVUS [employer]: Prescription: Impression: Abnormal vaginal bleeding Hyponatremia Plan: Definitive disposition and diagnosis as appropriate pending reevaluation and review of above. 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: Musculoskeletal History: Reports: Arthritis Neurological History: Reports: TIA Psychiatric History: Reports: Anxiety, Depression, PTSD Endocrine/Metabolic History: Reports: None Hematologic History: Reports: Anemia Immunologic History: Reports: None Oncologic (Cancer) History: Reports: None Dermatologic History: Reports: None - Infectious Disease History Infectious Disease History: Reports: Chicken Pox, Mumps - Past Surgical History Head Surgeries/Procedures: Reports: None HEENT Surgical History: Reports: None Cardiovascular Surgical History: Reports: None Respiratory Surgical History: Reports: None GI Surgical History: Reports: None Female Surgical History: Reports: Section, Tubal Ligation Endocrine Surgical History: Reports: None Neurological Surgical History: Reports: None Musculoskeletal Surgical History: Reports: None Dermatological Surgical History: Reports: None Social & Family History - Family History Family Medical History: Noncontributory HEENT: Reports: None Cardiac: Reports: High Cholesterol, Hypertension, MS Respiratory: Reports: None GI: Reports: None : Reports: None OBGYN: Reports: Musculoskeletal: Reports: Arthritis, Gout Neurological: Reports: None Psychiatric: Reports: Anxiety, Depression Endocrine/Metabolic: Reports: None Hematologic: Reports: None Immunologic: Reports: None Dermatologic: Reports: None Oncologic: Reports: Lymphoma - Tobacco Use Smoking Status *Q: Former Smoker Used Tobacco, but Quit: Yes Month/Year Tobacco Last Used: 1.5years ago - Caffeine Use Caffeine Use: Reports: Energy Drinks, Soda - Recreational Drug Use Recreational Drug Use: No ED ROS GENERAL - Review of Systems Review Of Systems: Comprehensive ROS is negative, except as noted in HPI. ED EXAM, GENERAL - Physical Exam Exam: See Below (see dictation) Course - Vital Signs Last Recorded V/S: Last Vital Signs Temp 97.5 F 12/12/19 21:45 Pulse 112 H 12/13/19 01:45 Resp 18 12/13/19 01:45 BP 134/100 H 12/13/19 01:45 Pulse Ox 97 12/13/19 01:45 - Orders/Labs/Meds Orders: Active Orders 24 hr Category Date Time Status Pelvis Non OB Comp [US] Routine Exams 12/12/19 22:30 Taken CULTURE URINE [RM] Stat Lab 12/12/19 20:25 Received Labs: Laboratory Tests 12/12/19 12/12/19 12/12/19 Range/Units 20:25 20:26 20:26 WBC 6.23 (4.0-11.0) K/uL RBC 3.62 L (4.30-5.90) M/uL Hgb 11.7 L (12.0-16.0) g/dL Hct 36.3 (36.0-46.0) % MCV 100.3 H (80.0-98.0) fL MCH 32.3 H (27.0-32.0) pg MCHC 32.2 (31.0-37.0) g/dL RDW Std Deviation 51.7 (28.0-62.0) fl RDW Coeff of Sara 14 (11.0-15.0) % Plt Count 345 (150-400) K/uL MPV 9.10 (7.40-12.00) fL Neut % (Auto) 58.6 (48.0-80.0) % Lymph % (Auto) 31.3 (16.0-40.0) % Chilton % (Auto) 7.9 (0.0-15.0) % Eos % (Auto) 1.6 (0.0-7.0) % Baso % (Auto) 0.6 (0.0-1.5) % Neut # (Auto) 3.7 (1.4-5.7) K/uL Lymph # (Auto) 2.0 (0.6-2.4) K/uL Chilton # (Auto) 0.5 (0.0-0.8) K/uL Eos # (Auto) 0.1 (0.0-0.7) K/uL Baso # (Auto) 0.0 (0.0-0.1) K/uL Nucleated RBC % 0.0 /100WBC Nucleated RBCs # 0 K/uL Sodium 126 L (136-145) mmol/L Potassium 4.2 (3.5-5.1) mmol/L Chloride 91 L (98-107) mmol/L Carbon Dioxide 26.6 (21.0-32.0) mmol/L BUN 8 (7.0-18.0) mg/dL Creatinine 0.7 (0.6-1.0) mg/dL Est Cr Clr Drug Dosing 92.68 mL/min Estimated GFR (MDRD) > 60.0 ml/min Glucose 113 H (74-106) mg/dL Calcium 8.7 (8.5-10.1) mg/dL Total Bilirubin 0.1 L (0.2-1.0) mg/dL AST 35 (15-37) IU/L ALT 28 (14-63) IU/L Alkaline Phosphatase 97 (46-116) U/L Total Protein 7.8 (6.4-8.2) g/dL Albumin 4.2 (3.4-5.0) g/dL Globulin 3.6 (2.6-4.0) g/dL Albumin/Globulin Ratio 1.2 (0.9-1.6) HCG, Qual (NEG) Urine Color RED Urine Appearance CLOUDY Urine pH 5.5 (5.0-8.0) Ur Specific Omega <= 1.005 (1.001-1.035) Urine Protein 100 H (NEGATIVE) mg/dL Urine Glucose (UA) NEGATIVE (NEGATIVE) mg/dL Urine Ketones NEGATIVE (NEGATIVE) mg/dL Urine Occult Blood LARGE H (NEGATIVE) Urine Nitrite POSITIVE H (NEGATIVE) Urine Bilirubin NEGATIVE (NEGATIVE) Urine Urobilinogen 0.2 (<2.0) EU/dL Ur Leukocyte Esterase SMALL H (NEGATIVE) Urine RBC TOO NUMEROUS TO CT H (0-2/HPF) Urine WBC 3-5 (0-5/HPF) Ur Epithelial Cells FEW (NONE-FEW) Urine Bacteria FEW (NEGATIVE) Urine Mucus LIGHT (NONE-MOD) 12/12/19 12/12/19 Range/Units 20:26 21:11 WBC (4.0-11.0) K/uL RBC (4.30-5.90) M/uL Hgb 11.1 L (12.0-16.0) g/dL Hct (36.0-46.0) % MCV (80.0-98.0) fL MCH (27.0-32.0) pg MCHC (31.0-37.0) g/dL RDW Std Deviation (28.0-62.0) fl RDW Coeff of Sara (11.0-15.0) % Plt Count (150-400) K/uL MPV (7.40-12.00) fL Neut % (Auto) (48.0-80.0) % Lymph % (Auto) (16.0-40.0) % Chilton % (Auto) (0.0-15.0) % Eos % (Auto) (0.0-7.0) % Baso % (Auto) (0.0-1.5) % Neut # (Auto) (1.4-5.7) K/uL Lymph # (Auto) (0.6-2.4) K/uL Chilton # (Auto) (0.0-0.8) K/uL Eos # (Auto) (0.0-0.7) K/uL Baso # (Auto) (0.0-0.1) K/uL Nucleated RBC % /100WBC Nucleated RBCs # K/uL Sodium (136-145) mmol/L Potassium (3.5-5.1) mmol/L Chloride (98-107) mmol/L Carbon Dioxide (21.0-32.0) mmol/L BUN (7.0-18.0) mg/dL Creatinine (0.6-1.0) mg/dL Est Cr Clr Drug Dosing mL/min Estimated GFR (MDRD) ml/min Glucose (74-106) mg/dL Calcium (8.5-10.1) mg/dL Total Bilirubin (0.2-1.0) mg/dL AST (15-37) IU/L ALT (14-63) IU/L Alkaline Phosphatase (46-116) U/L Total Protein (6.4-8.2) g/dL Albumin (3.4-5.0) g/dL Globulin (2.6-4.0) g/dL Albumin/Globulin Ratio (0.9-1.6) HCG, Qual NEGATIVE (NEG) Urine Color Urine Appearance Urine pH (5.0-8.0) Ur Specific Omega (1.001-1.035) Urine Protein (NEGATIVE) mg/dL Urine Glucose (UA) (NEGATIVE) mg/dL Urine Ketones (NEGATIVE) mg/dL Urine Occult Blood (NEGATIVE) Urine Nitrite (NEGATIVE) Urine Bilirubin (NEGATIVE) Urine Urobilinogen (<2.0) EU/dL Ur Leukocyte Esterase (NEGATIVE) Urine RBC (0-2/HPF) Urine WBC (0-5/HPF) Ur Epithelial Cells (NONE-FEW) Urine Bacteria (NEGATIVE) Urine Mucus (NONE-MOD) Meds: Medications Discontinued Medications Generic Name Dose Route Start Last Admin Trade Name Freq PRN Reason Stop Dose Admin Sodium Chloride 1,000 mls @ 999 mls/hr 12/12/19 21:09 12/12/19 23:23 Normal Saline IV 12/12/19 22:09 Not Given STAT ONE Sepsis Event Note (ED) - Evaluation Sepsis Screening Result: No Definite Risk - Focused Exam Vital Signs: Vital Signs Pulse Resp BP Pulse Ox 12/13/19 01:45 112 H 18 134/100 H 97 12/13/19 01:00 118 H 18 152/111 H 96 12/12/19 23:20 107 H 18 142/104 H 96 - My Orders Last 24 Hours: My Active Orders 12/12/19 20:25 CULTURE URINE [RM] Stat - Assessment/Plan Last 24 Hours: My Active Orders 12/12/19 20:25 CULTURE URINE [RM] Stat
--- NOTE | 2019-12-13 00:17 | US ---
INDICATION: Heavy bleeding TECHNIQUE: Ultrasound pelvis transabdominal and transvaginal for better assessment or to better visualize the endometrium. Real-time sonographic images with spectral and color Doppler imaging of the ovaries were obtained. COMPARISON: None available FINDINGS: Uterus: 9.9 x 4.2 x 3.5 cm. The uterine body is not well seen on the transvaginal images. A 5.2 x 4.2 x 4.3 cm ovoid isoechoic mass along the right aspect of the lower uterine segment, containing color Doppler vascular flow, unclear if arising from the lower uterine segment or periuterine/adnexal in origin. Endometrium: The endometrium is not seen on the transvaginal images. Hypoechoic endometrium on the transabdominal images measuring up to 1 cm. Right ovary: Not seen on the transvaginal images. A 2.0 x 1.4 cm structure in the right pelvis on transabdominal imaging could represent the right ovary. Left ovary: Not seen. Cul-de-sac: No significant free fluid. IMPRESSION: A 5.2 cm vascular mass right of the lower uterine segment, unclear if of uterine or adnexal origin. The right ovary is possibly seen separate from this mass on transabdominal images. Nonvisualization of the left ovary. Recommend further evaluation with contrast MRI. Limited evaluation of the endometrium which measures up to 1 cm transabdominally, demonstrating hypoechoic appearance which could represent fluid. If the patient is postmenopausal, this is abnormal, and further evaluation is recommended to exclude neoplasm. Dictated by Flavio Chapin MD @ 12/13/2019 12:15:26 AM Dictated by: Flavio Chapin MD @ 12/13/2019 00:15:39 (Electronically Signed)
--- NOTE | 2019-12-16 13:27 | US ---
EXAM DATE: 12/12/19 PATIENT'S AGE: 54 Patient: Facility: [facility] Site . Site : [id number] Study: US-Pelvis 0797-12/12/2019 10:54:30 PM Ordering Physician: Brandon Kent Final Report: INDICATION: Heavy bleeding TECHNIQUE: Ultrasound pelvis transabdominal and transvaginal for better assessment or to better visualize the endometrium. Real-time sonographic images with spectral and color Doppler imaging of the ovaries were obtained. COMPARISON: None available FINDINGS: Uterus: 9.9 x 4.2 x 3.5 cm. The uterine body is not well seen on the transvaginal images. A 5.2 x 4.2 x 4.3 cm ovoid isoechoic mass along the right aspect of the lower uterine segment, containing color Doppler vascular flow, unclear if arising from the lower uterine segment or periuterine/adnexal in origin. Endometrium: The endometrium is not seen on the transvaginal images. Hypoechoic endometrium on the transabdominal images measuring up to 1 cm. Right ovary: Not seen on the transvaginal images. A 2.0 x 1.4 cm structure in the right pelvis on transabdominal imaging could represent the right ovary. Left ovary: Not seen. Cul-de-sac: No significant free fluid. IMPRESSION: A 5.2 cm vascular mass right of the lower uterine segment, unclear if of uterine or adnexal origin. The right ovary is possibly seen separate from this mass on transabdominal images. Nonvisualization of the left ovary. Recommend further evaluation with contrast MRI. Limited evaluation of the endometrium which measures up to 1 cm transabdominally, demonstrating hypoechoic appearance which could represent fluid. If the patient is postmenopausal, this is abnormal, and further evaluation is recommended to exclude neoplasm. Dictated by Flavio Chapin MD @ 12/13/2019 12:15:26 AM Dictated by: Flavio Chapin MD @ 12/13/2019 00:15:39 ----- ADDENDUM ----- The report was faxed to, and received by, Dr. Taylor, on 12/13/2019 at 12:22 a.m. Dictated by Flavio Chapin MD @ Dec 13 2019 1:08AM Signed by: Flavio Chapin MD @12/13/2019 1:10:01 AM (Electronic Signature) Report Signed by Proxy. SIA
== END 2019-12-13 01:45 | disposition home or self-care (01) ==
LOC: MW.ED 19:49
DX: N93.8 Other specified abnormal uterine and vaginal bleeding (principal); E87.1 Hypo-osmolality and hyponatremia; M10.9 Gout, unspecified; E78.00 Pure hypercholesterolemia, unspecified; I10 Essential (primary) hypertension; J44.9 Chronic obstructive pulmonary disease, unspecified; F41.9 Anxiety disorder, unspecified; F32.9 Major depressive disorder, single episode, unspecified; M19.90 Unspecified osteoarthritis, unspecified site; Z87.891 Personal history of nicotine dependence; Z79.82 Long term (current) use of aspirin; Z79.899 Other long term (current) drug therapy; Z86.73 Personal history of transient ischemic attack (TIA), and cerebral infarction without residual deficits
CPT/HCPCS: 36415; 76830; 76830-26; 76856; 76856-26; 80053; 81001; 81003; 84703; 85018; 85025; 87086; 99284; 99284-25

== ENCOUNTER 2020-01-13 07:39 | Day surgery (SDC) | payer MEDICAID, OTHER ==
[~2020-01-13 07:39] MED LIST: Lactated Ringers 1,000 ML IV SCH; ceFAZolin 2 GM in Premix Bag 1 BAG IV ONE
--- NOTE | 2020-01-13 08:39 | PCM.PREANE ---
Preanesthetic Assessment - Anesthesia/Transfusion/Family Hx Anesthesia History: Prior Anesthesia Without Reaction Family History of Anesthesia Reaction: No Transfusion History: Prior Transfusion Without Reaction Intubation History: Unknown - Review of Systems General: No Symptoms Pulmonary: No Symptoms Cardiovascular: No Symptoms Gastrointestinal: No Symptoms Neurological: No Symptoms Other: Reports: None - Physical Assessment Height: 5 ft 8 in Weight: 90.265 kg ASA Class: 3 Mental Status: Alert & Oriented x3 Airway Class: Mallampati = 2 Dentition: Reports: Normal Dentition Thyro-Mental Finger Breadths: 3 Mouth Opening Finger Breadths: 3 ROM/Head Extension: Full Lungs: Clear to Auscultation, Normal Respiratory Effort Cardiovascular: Regular Rate, Regular Rhythm - Lab Values: Laboratory Last Values Urine HCG, Qual NEGATIVE (NEGATIVE) 01/13/20 08:00 - Allergies Allergies/Adverse Reactions: Allergies Allergy/AdvReac Type Severity Reaction Status Date / Time No Known Allergies Allergy Verified 01/13/20 08:27 - Blood Blood Available: No - Anesthesia Plan Pre-Op Medication Ordered: None - Acknowledgements Anesthesia Type Planned: MAC Pt an Appropriate Candidate for the Planned Anesthesia: Yes Alternatives and Risks of Anesthesia Discussed w Pt/Guardian: Yes Pt/Guardian Understands and Agrees with Anesthesia Plan: Yes PreAnesthesia Questionnaire HEENT History: Reports: Other (See Below) Other HEENT History: wears glasses Cardiovascular History: Reports: Arrhythmia (h/o paroxysmal thacycardia now controled with coreg), High Cholesterol, Hypertension, Other (See Below) Other Cardiovascular History: atrial aneurysm, h/o (HFpEF) heart failure with preserved ejection fraction Respiratory History: Reports: COPD (moderat/severe), SOB (struggles with 2 flights of stairs), Other (See Below) Other Respiratory History: emphysema, hx of hemothorax, 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 and was told never to get tested again Gastrointestinal History: Reports: None Genitourinary History: Reports: None [employer]ENT History: Reports: Musculoskeletal History: Reports: Fracture Other Musculoskeletal History: hx fx ribs Neurological History: Reports: TIA, Other (See Below) Other Neuro History: cryptogenic stroke - states "stroke in heart 20 years ago" Psychiatric History: Reports: Anxiety, Depression, Panic Attack, PTSD Endocrine/Metabolic History: Reports: Obesity/BMI 30+ (BMI 30.3) Hematologic History: Reports: Anemia, Blood Transfusion(s) Immunologic History: Reports: None Oncologic (Cancer) History: Reports: Cervix (with undergo chemo treatment) Dermatologic History: Reports: None - Infectious Disease History Infectious Disease History: Reports: Chicken Pox, Mumps - Past Surgical History Head Surgeries/Procedures: Reports: None HEENT Surgical History: Reports: Cataract Surgery, Myringotomy w Tube(s), Tonsillectomy Cardiovascular Surgical History: Reports: None Respiratory Surgical History: Reports: None GI Surgical History: Reports: None Female Surgical History: Reports: Section, Tubal Ligation Other Female Surgeries/Procedures: c/section x2, laparotomy 2 days following last c/section for internal bleeding Endocrine Surgical History: Reports: None Neurological Surgical History: Reports: None Musculoskeletal Surgical History: Reports: None Oncologic Surgical History: Reports: None Dermatological Surgical History: Reports: None - SUBSTANCE USE Smoking Status *Q: Former Smoker (quit 1 1/2 years ago) Tobacco Use Within Last Twelve Months: No - HOME MEDS Home Medications: Home Meds Albuterol Sulfate [Proventil Hfa] 2 puff INH Q4H PRN 02/07/17 [History] Budesonide/Formoterol Fumarate [Symbicort 80-4.5 MCG] 2 puff INH BID 02/07/17 [H istory] Carvedilol [Coreg] 12.5 mg PO BIDMEALS 02/07/17 [History] Multivitamin [Multi-Vitamin Daily] 1 tab PO DAILY 02/07/17 [History] Sertraline [Zoloft] 100 mg PO BEDTIME 02/07/17 [History] Simvastatin [Zocor] 10 mg PO BEDTIME 02/07/17 [History] Aspirin/Acetaminophen/Caffeine [Excedrin Migraine Caplet] 1 tab PO ASDIRECTED PRN 01/09/20 [History] Cholecalciferol (Vitamin D3) [Vitamin D3] 1,000 units PO DAILY 01/09/20 [History] Ferrous Sulfate [Iron] 325 mg PO DAILY 01/09/20 [History] Rhubarb Root Extract [Estroven Cmplt Menopause Rlf] 1 tab PO DAILY 01/09/20 [History] Tranexamic Acid [Lysteda] 650 mg PO ASDIRECTED 01/09/20 [History] Zinc 1 tab PO DAILY 01/09/20 [History] traZODone HCl [Trazodone HCl] 50 mg PO BEDTIME PRN 01/09/20 [History] - CURRENT (IN HOUSE) MEDS Current Meds: Current Medications Lactated Ringer's (Ringers, Lactated) 1,000 mls @ 125 mls/hr IV ASDIRECTED [facility] Last Admin: 01/13/20 08:32 Dose: 125 mls/hr Documented by: Discontinued Medications Cefazolin Sodium/Dextrose 2 gm (/ Premix) 50 mls @ 100 mls/hr IV ONETIME ONE Stop: 01/13/20 07:29
[2020-01-13] MEDS ORDERED: Propofol 200 MG/20 ML SDV ONE ×5 (08:58→11:15)
[2020-01-13] MEDS ORDERED: Ondansetron 4 MG/2 ML SDV ONE (08:58)
[2020-01-13] MEDS ORDERED: fentaNYL 100 MCG/2 ML SDV ONE (08:58)
[2020-01-13] MEDS ORDERED: Midazolam 1 MG/ML 2 ML SDV ONE (08:58)
[2020-01-13] MEDS ORDERED: Lidocaine 2% 5 ML SDV ONE (08:58)
[2020-01-13] MEDS ORDERED: Heparin Sodium 100 Units/ML 3 ML Syringe ONE ×2 (09:23→11:09)
[2020-01-13] MEDS ORDERED: Bupivacaine 0.5% 10 ML SDV ONE (09:23)
[2020-01-13] MEDS ORDERED: ceFAZolin/Dextrose,Iso-Osmotic 2 GM/50 ML Duplex Bag IV ONE (09:52)
[2020-01-13] MEDS ORDERED: ePHEDrine 50 MG/ML SDV ONE (10:30)
[2020-01-13] MEDS ORDERED: HYDROmorphone 2 MG/ML Syringe ONE (11:05)
[2020-01-13] MEDS ORDERED: Acetaminophen/HYDROcodone 325-10 MG Tab PO PRN (11:41)
--- NOTE | 2020-01-13 11:44 | PCM.OPNOTE ---
- General Post-Op/Procedure Note Date of Surgery/Procedure: 01/13/20 Operative Procedure(s): Placement of Bard port via left cephalic vein approach Pre Op Diagnosis: Carcinoma uterine cervix Post-Op Diagnosis: Same Anesthesia Technique: Local, MAC (ASA III) Primary Surgeon: Obey Weston Fluid Replacement, Intraop: 1,000 EBL in mLs: 50 Condition: Good Free Text/Narrative:: DICTATION [id number] CPT CODE 74703
[2020-01-13] MEDS ORDERED: Lactated Ringers 1,000 ML IV SCH (11:45)
--- NOTE | 2020-01-13 12:32 | CR ---
Chest: Portable view of the chest was obtained. Comparison: Prior chest x-ray of 09/10/18. Heart size and mediastinum are within normal limits for portable technique. Lungs show no acute parenchymal change. Bony structures are grossly intact. Left-sided port is seen with tip lying within the superior vena cava. This is an interval change from previous exam. Impression: 1. Nothing acute is seen on portable chest x-ray. 2. Interval port from prior exam. Diagnostic code #2 This report was dictated in MDT
--- NOTE | 2020-01-13 14:20 | OR ---
SURGEON: Obey Weston M.D. DATE OF PROCEDURE: 01/13/2020 OPERATION PERFORMED: Placement of Bard port via left cephalic vein approach to superior vena cava. PRIMARY SURGEON: Obey Weston MD ANESTHESIA: Local MAC. ASA CLASSIFICATION: III. PREOPERATIVE DIAGNOSIS: Carcinoma of the cervix. POSTOPERATIVE DIAGNOSIS: Carcinoma of the cervix. ESTIMATED BLOOD LOSS: 50 mL. INTRAOPERATIVE FLUID REPLACEMENT: 1000 mL of crystalloid. DESCRIPTION OF PROCEDURE: The patient was taken to the operating room and placed on the operating table in the supine position. Time-out was called for appropriate identification of the patient and procedure. The surgical site had been marked prior to the patient entering the operating room. Following appropriate induction of sedation, the left chest was prepped with Hibiclens solution and sterile drapes were applied. The skin in the left deltopectoral groove was infiltrated with 1% Xylocaine and 0.5% Marcaine solution. Skin incision was made and deepened through the subcutaneous tissue obtaining hemostasis with the use of electrocautery. Smaller vessels were cauterized. Larger ones were suture ligated. The cephalic vein was of good quality. This was then encircled with 3-0 Vicryl ties. A small venotomy was made and the heparin-flushed catheter was positioned fluoroscopically in the superior vena cava. The ties around the vein were then secured. Appropriate site on the chest wall was chosen for placement of the port. The skin was again infiltrated with 1% Xylocaine and 0.5% Marcaine. Skin incision was made and deepened into the generous subcutaneous tissue, again obtaining hemostasis with a combination of electrocautery and 3-0 Vicryl ties. With care taken to avoid an air embolus, the catheter was clamped, divided, and connected to the previously flushed regular-sized port. The catheter and port were secured together with the connector. The wounds were inspected for hemostasis and again small bleeding sites were electrocoagulated. The port was then positioned in the subcutaneous space and secured with multiple interrupted 2-0 silk sutures. With that accomplished, the wounds were inspected for hemostasis and no other bleeding was noted. Both incisions were closed in 2 layers approximating the subcutaneous tissue with 3-0 Vicryl and the skin with subcuticular 4-0 Monocryl. Both incisions were reinforced with half-inch Steri- Strips. The wounds were then dressed with sterile Tegaderm pads. Sponge, needle, and instrument counts were all correct. The patient was then taken to recovery room in stable condition. A chest x-ray will be obtained in recovery room. KRISTA BELCHER /[id number]
--- NOTE | 2020-01-13 14:53 | CR ---
Chest: 2 fluoroscopic spot views were obtained centered to Port-A-Cath catheter within the upper chest. Fluoroscopy time for the procedure is 26.3 seconds. Study shows Port-A-Cath catheter with the tip in the region of the superior vena cava. No additional finding is appreciated. Impression: 1. Procedural study as noted above. Diagnostic code #2 This report was dictated in MDT
== END 2020-01-13 13:00 | disposition home or self-care (01) ==
LOC: MW.SDS 07:39
PROVIDERS: ATTEND Surgery
DX: C53.9 Malignant neoplasm of cervix uteri, unspecified (principal); E78.00 Pure hypercholesterolemia, unspecified; I10 Essential (primary) hypertension; F41.9 Anxiety disorder, unspecified; E78.5 Hyperlipidemia, unspecified; I49.3 Ventricular premature depolarization; F32.9 Major depressive disorder, single episode, unspecified; F43.10 Post-traumatic stress disorder, unspecified; F10.11 Alcohol abuse, in remission; J43.9 Emphysema, unspecified; E66.9 Obesity, unspecified; Z68.30 Body mass index [BMI] 30.0-30.9, adult; Z87.891 Personal history of nicotine dependence; Z79.899 Other long term (current) drug therapy; Z79.82 Long term (current) use of aspirin; Z86.2 Personal history of diseases of the blood and blood-forming organs and certain disorders involving the immune mechanism; Z86.73 Personal history of transient ischemic attack (TIA), and cerebral infarction without residual deficits; Z98.890 Other specified postprocedural states; Z86.11 Personal history of tuberculosis; Z80.3 Family history of malignant neoplasm of breast; Z80.0 Family history of malignant neoplasm of digestive organs; Z72.89 Other problems related to lifestyle
CPT/HCPCS: 36561; 71045; 76000; 81025; C1788; J0690; J1170; J1642; J2001; J2250; J2405; J2704; J3010; J3490; J7120; 00532

== ENCOUNTER 2020-02-05 23:29 | Emergency (ER) | payer MEDICAID, OTHER ==
[2020-02-06] MEDS ORDERED: Sodium Chloride 0.9% 2.5 ML Syringe FLUSH PRN ×2 (00:07→00:27)
[2020-02-06] MEDS ORDERED: Sodium Chloride 0.9% 10 ML Syringe FLUSH PRN ×2 (00:07→00:27)
--- NOTE | 2020-02-06 00:11 | EDM.PDOC ---
ED HPI GENERAL MEDICAL PROBLEM - General Chief Complaint: Fever Stated Complaint: CHEMOTHERAPY, HIGH FEVER Time Seen by Provider: 02/05/20 23:57 - History of Present Illness INITIAL COMMENTS - FREE TEXT/NARRATIVE: History of present illness: [] The patient felt chills. She got blankets on took a Tylenol. Her chills did not stop. She took her temperature with a tympanic at home and had 102.7 fever. She has a mild cough. She has muscle aches most of it around the hip and back where she says she lay on the table today for chemotherapy. Patient has no energy and has a normal appetite but a metallic taste in her mouth. Started chemotherapy 2 weeks ago. She has chemotherapy on Wednesdays and had chemotherapy yesterday. She had significant nausea at the beginning and they adjusted her chemotherapy before this last treatment. She is under CBD for her nausea and that seems to be working well. Review of systems: As per history of present illness and below otherwise all systems reviewed and negative. Past medical history: As per history of present illness and as reviewed below otherwise noncontributory. Surgical history: As per history of present illness and as reviewed below otherwise noncontributory. Social history: No reported history of drug or alcohol abuse. Family history: As per history of present illness and as reviewed below otherwise noncontributory. Physical exam: Constitutional - well developed, well-nourished and in no acute distress HEENT -TMs and pharynx are normal. Normocephalic, no evidence of trauma - external nose and mouth normal - no mass in neck and no JVD - mucosae moist EYES - full EOM, PERRL, no icterus - no evidence of inflammation, injection, or drainage Respiratory - no respiratory distress, equal bilateral expansion, lungs clear to auscultation and no abnormal lung sounds Cardiovascular - Regular Rhythm with S1 and S2 appreciated and no murmur, gallop or rub. GI - abdomen soft without distension or organomegaly - normal bowel sounds - no guard or rebound Musculoskeletal no gross deformity of long bones or joints - no tenderness, swelling or edema Neurologic - Alert and oriented times four - CN II-XII grossly intact - motor sensory and coordination symmetrically normal Psychiatric - appropriate mood and affect with normal thought content Hematologic - No petechiae or purpura - mucosa appropriate color and sclera not pale - normal nail bed color and refill Integument - no rash or evidence of trauma - normal turgor Diagnostics: [] Therapeutics: [] Impression: [] Plan: [] Definitive disposition and diagnosis as appropriate pending reevaluation and review of above. general Pain Score (Numeric/FACES): 6 - Related Data Allergies Allergy/AdvReac Type Severity Reaction Status Date / Time No Known Allergies Allergy Verified 02/05/20 23:42 Home Meds: Home Meds Albuterol Sulfate [Proventil Hfa] 2 puff INH Q4H PRN 02/07/17 [History] Budesonide/Formoterol Fumarate [Symbicort 80-4.5 MCG] 2 puff INH BID 02/07/17 [History] Carvedilol [Coreg] 12.5 mg PO BIDMEALS 02/07/17 [History] Multivitamin [Multi-Vitamin Daily] 1 tab PO DAILY 02/07/17 [History] Sertraline [Zoloft] 125 mg PO BEDTIME 02/07/17 [History] Simvastatin [Zocor] 10 mg PO BEDTIME 02/07/17 [History] Cholecalciferol (Vitamin D3) [Vitamin D3] 1,000 units PO DAILY 01/09/20 [History] Ferrous Sulfate [Iron] 325 mg PO DAILY 01/09/20 [History] Rhubarb Root Extract [Estroven Cmplt Menopause Rlf] 1 tab PO DAILY 01/09/20 [History] Tranexamic Acid [Lysteda] 650 mg PO ASDIRECTED 01/09/20 [History] Zinc 1 tab PO DAILY 01/09/20 [History] traZODone HCl [Trazodone HCl] 50 mg PO BEDTIME PRN 01/09/20 [History] LORazepam [Ativan] 1 mg PO ASDIRECTED 02/05/20 [History] Ondansetron [Zofran] 8 mg PO Q8H PRN 02/05/20 [History] Prochlorperazine [Compazine] 10 mg PO Q6H PRN 02/05/20 [History] Azithromycin [Zithromax] 250 mg PO DAILY #4 tab 02/06/20 [Rx] Past Medical History HEENT History: Reports: Other (See Below) Other HEENT History: wears glasses Cardiovascular History: Reports: Arrhythmia, High Cholesterol, Hypertension, Other (See Below) Other Cardiovascular History: atrial aneurysm, h/o (HFpEF) heart failure with preserved ejection fraction Respiratory History: Reports: COPD, SOB, Other (See Below) Other Respiratory History: emphysema, hx of hemothorax, 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 Left arm fx at age 11 Neurological History: Reports: TIA, Other (See Below) Other Neuro History: cryptogenic stroke - states "stroke in heart 20 years ago" Psychiatric History: Reports: Anxiety, Depression, Panic Attack, PTSD Endocrine/Metabolic History: Reports: Obesity/BMI 30+ Hematologic History: Reports: Anemia, Blood Transfusion(s) Immunologic History: Reports: None Oncologic (Cancer) History: Reports: Cervix Dermatologic History: Reports: None - Infectious Disease History Infectious Disease History: Reports: Chicken Pox, Mumps - Past Surgical History Head Surgeries/Procedures: Reports: None HEENT Surgical History: Reports: Cataract Surgery, Myringotomy w Tube(s), Tonsillectomy Cardiovascular Surgical History: Reports: None Respiratory Surgical History: Reports: None GI Surgical History: Reports: None Female Surgical History: Reports: Section, Tubal Ligation Other Female Surgeries/Procedures: c/section x2, laparotomy 2 days following last c/section for internal bleeding Endocrine Surgical History: Reports: None Neurological Surgical History: Reports: None Musculoskeletal Surgical History: Reports: None Oncologic Surgical History: Reports: None Other Oncologic Surgeries/Procedures: Port for chemo to left ches Dermatological Surgical History: Reports: None Social & Family History - Family History Family Medical History: Noncontributory HEENT: Reports: None Cardiac: Reports: High Cholesterol, Hypertension, [place] Respiratory: Reports: None GI: Reports: None : Reports: None OBGYN: Reports: Musculoskeletal: Reports: Arthritis, Gout Neurological: Reports: None Psychiatric: Reports: Anxiety, Depression Endocrine/Metabolic: Reports: None Hematologic: Reports: None Immunologic: Reports: None Dermatologic: Reports: None Oncologic: Reports: Lymphoma - Caffeine Use Caffeine Use: Reports: Energy Drinks, Soda - Recreational Drug Use Recreational Drug Use: Yes Recreational Drug Type: Reports: Methamphetamine ED ROS GENERAL - Review of Systems Review Of Systems: Comprehensive ROS is negative, except as noted in HPI. ED EXAM, GENERAL - Physical Exam Exam: See Below Free Text/Narrative:: My physical exam is in the HPI Course - Vital Signs Text/Narrative:: 1:09 AM the chest x-ray is reported as new right lower lobe infiltrate which I suspected but waited for the radiologist report. Impression pneumonia. Is comfortable. He white count is over 3000 and slightly higher than it was from her last check. It is been stable. Patient will be discharged on antibiotics and she sees her radiation therapy team this morning. She will be told to have them contact her doctor make sure they agree with the plan. Last Recorded V/S: Last Vital Signs Temp 100.0 F 02/06/20 02:20 Pulse 95 02/06/20 02:20 Resp 20 02/06/20 01:44 BP 130/81 02/06/20 02:20 Pulse Ox 95 02/06/20 02:20 - Orders/Labs/Meds Orders: Active Orders 24 hr Category Date Time Status CULTURE BLOOD [BC] Stat Lab 02/06/20 01:03 Received CULTURE BLOOD [BC] Stat Lab 02/06/20 01:08 Received Sodium Chloride 0.9% [Normal Saline] 1,000 ml Med 02/06/20 00:30 Active IV ASDIRECTED Sodium Chloride 0.9% [Saline Flush] Med 02/06/20 00:07 Active 10 ml FLUSH ASDIRECTED PRN Sodium Chloride 0.9% [Saline Flush] Med 02/06/20 00:27 Active 10 ml FLUSH ASDIRECTED PRN Sodium Chloride 0.9% [Saline Flush] Med 02/06/20 00:07 Active 2.5 ml FLUSH ASDIRECTED PRN Sodium Chloride 0.9% [Saline Flush] Med 02/06/20 00:27 Active 2.5 ml FLUSH ASDIRECTED PRN Blood Culture x2 Reflex Set [OM.PC] Stat Oth 02/06/20 00:08 Ordered Saline Lock Insert [OM.PC] Stat Oth 02/06/20 00:07 Ordered Saline Lock Insert [OM.PC] Stat Oth 02/06/20 00:27 Ordered Medication Orders Sodium Chloride (Normal Saline) 1,000 mls @ 125 mls/hr IV ASDIRECTED SAEID Sodium Chloride (Saline Flush) 10 ml FLUSH ASDIRECTED PRN PRN Reason: Keep Vein Open Sodium Chloride (Saline Flush) 2.5 ml FLUSH ASDIRECTED PRN PRN Reason: Keep Vein Open Sodium Chloride (Saline Flush) 10 ml FLUSH ASDIRECTED PRN PRN Reason: Keep Vein Open Sodium Chloride (Saline Flush) 2.5 ml FLUSH ASDIRECTED PRN PRN Reason: Keep Vein Open Labs: Laboratory Tests 02/06/20 02/06/20 02/06/20 Range/Units 00:20 01:03 01:03 WBC 3.55 L (4.0-11.0) K/uL RBC 3.00 L (4.30-5.90) M/uL Hgb 9.4 L (12.0-16.0) g/dL Hct 28.9 L (36.0-46.0) % MCV 96.3 (80.0-98.0) fL MCH 31.3 (27.0-32.0) pg MCHC 32.5 (31.0-37.0) g/dL RDW Std Deviation 39.7 (28.0-62.0) fl RDW Coeff of Sara 12 (11.0-15.0) % Plt Count 103 L (150-400) K/uL MPV 8.90 (7.40-12.00) fL Neut % (Auto) 95.1 H (48.0-80.0) % Lymph % (Auto) 0.6 L (16.0-40.0) % [place] % (Auto) 3.7 (0.0-15.0) % Eos % (Auto) 0.3 (0.0-7.0) % Baso % (Auto) 0.3 (0.0-1.5) % Neut # (Auto) 3.4 (1.4-5.7) K/uL Lymph # (Auto) 0.0 L (0.6-2.4) K/uL [place] # (Auto) 0.1 (0.0-0.8) K/uL Eos # (Auto) 0.0 (0.0-0.7) K/uL Baso # (Auto) 0.0 (0.0-0.1) K/uL Sodium 130 L (136-145) mmol/L Potassium 4.3 (3.5-5.1) mmol/L Chloride 97 L (98-107) mmol/L Carbon Dioxide 23.9 (21.0-32.0) mmol/L BUN 10 (7.0-18.0) mg/dL Creatinine 0.8 (0.6-1.0) mg/dL Est Cr Clr Drug Dosing 78.18 mL/min Estimated GFR (MDRD) > 60.0 ml/min Glucose 113 H (74-106) mg/dL Calcium 8.5 (8.5-10.1) mg/dL Total Bilirubin 0.1 L (0.2-1.0) mg/dL AST 35 (15-37) IU/L ALT 41 (14-63) IU/L Alkaline Phosphatase 71 (46-116) U/L Total Protein 6.5 (6.4-8.2) g/dL Albumin 3.5 (3.4-5.0) g/dL Globulin 3.0 (2.6-4.0) g/dL Albumin/Globulin Ratio 1.2 (0.9-1.6) Urine Color YELLOW Urine Appearance CLEAR Urine pH 7.0 (5.0-8.0) Ur Specific [place] 1.015 (1.001-1.035) Urine Protein NEGATIVE (NEGATIVE) mg/dL Urine Glucose (UA) NEGATIVE (NEGATIVE) mg/dL Urine Ketones NEGATIVE (NEGATIVE) mg/dL Urine Occult Blood NEGATIVE (NEGATIVE) Urine Nitrite NEGATIVE (NEGATIVE) Urine Bilirubin NEGATIVE (NEGATIVE) Urine Urobilinogen 0.2 (<2.0) EU/dL Ur Leukocyte Esterase TRACE H (NEGATIVE) Urine RBC 0-1 (0-2/HPF) Urine WBC 0-2 (0-5/HPF) Ur Epithelial Cells FEW (NONE-FEW) Urine Bacteria FEW (NEGATIVE) Urine Mucus LIGHT (NONE-MOD) Urinalysis Comment SARS-CoV-2 RNA (NANI) (NEGATIVE) 02/06/20 Range/Units 01:29 WBC (4.0-11.0) K/uL RBC (4.30-5.90) M/uL Hgb (12.0-16.0) g/dL Hct (36.0-46.0) % MCV (80.0-98.0) fL MCH (27.0-32.0) pg MCHC (31.0-37.0) g/dL RDW Std Deviation (28.0-62.0) fl RDW Coeff of Sara (11.0-15.0) % Plt Count (150-400) K/uL MPV (7.40-12.00) fL Neut % (Auto) (48.0-80.0) % Lymph % (Auto) (16.0-40.0) % [place] % (Auto) (0.0-15.0) % Eos % (Auto) (0.0-7.0) % Baso % (Auto) (0.0-1.5) % Neut # (Auto) (1.4-5.7) K/uL Lymph # (Auto) (0.6-2.4) K/uL [place] # (Auto) (0.0-0.8) K/uL Eos # (Auto) (0.0-0.7) K/uL Baso # (Auto) (0.0-0.1) K/uL Sodium (136-145) mmol/L Potassium (3.5-5.1) mmol/L Chloride (98-107) mmol/L Carbon Dioxide (21.0-32.0) mmol/L BUN (7.0-18.0) mg/dL Creatinine (0.6-1.0) mg/dL Est Cr Clr Drug Dosing mL/min Estimated GFR (MDRD) ml/min Glucose (74-106) mg/dL Calcium (8.5-10.1) mg/dL Total Bilirubin (0.2-1.0) mg/dL AST (15-37) IU/L ALT (14-63) IU/L Alkaline Phosphatase (46-116) U/L Total Protein (6.4-8.2) g/dL Albumin (3.4-5.0) g/dL Globulin (2.6-4.0) g/dL Albumin/Globulin Ratio (0.9-1.6) Urine Color Urine Appearance Urine pH (5.0-8.0) Ur Specific [place] (1.001-1.035) Urine Protein (NEGATIVE) mg/dL Urine Glucose (UA) (NEGATIVE) mg/dL Urine Ketones (NEGATIVE) mg/dL Urine Occult Blood (NEGATIVE) Urine Nitrite (NEGATIVE) Urine Bilirubin (NEGATIVE) Urine Urobilinogen (<2.0) EU/dL Ur Leukocyte Esterase (NEGATIVE) Urine RBC (0-2/HPF) Urine WBC (0-5/HPF) Ur Epithelial Cells (NONE-FEW) Urine Bacteria (NEGATIVE) Urine Mucus (NONE-MOD) Urinalysis Comment SARS-CoV-2 RNA (NANI) NEGATIVE (NEGATIVE) Meds: Medications Generic Name Dose Route Start Last Admin Trade Name Buffy PRN Reason Stop Dose Admin Sodium Chloride 1,000 mls @ 125 mls/hr 02/06/20 00:30 Normal Saline IV ASDIRECTED SAEID Sodium Chloride 10 ml 02/06/20 00:07 Saline Flush FLUSH ASDIRECTED PRN Keep Vein Open Sodium Chloride 2.5 ml 02/06/20 00:07 Saline Flush FLUSH ASDIRECTED PRN Keep Vein Open Sodium Chloride 10 ml 02/06/20 00:27 Saline Flush FLUSH ASDIRECTED PRN Keep Vein Open Sodium Chloride 2.5 ml 02/06/20 00:27 Saline Flush FLUSH ASDIRECTED PRN Keep Vein Open Discontinued Medications Generic Name Dose Route Start Last Admin Trade Name Buffy PRN Reason Stop Dose Admin Hydrocodone Bitart/Acetaminophen 1 tab 02/06/20 01:47 02/06/20 01:52 [place] 325-7.5 Mg PO 02/06/20 01:48 1 tab STAT STA Administration Azithromycin 500 mg 02/06/20 01:39 02/06/20 01:51 Zithromax PO 02/06/20 01:40 500 mg Q24H ONE Administration Ceftriaxone Sodium/Dextrose 1 50 mls @ 100 mls/hr 02/06/20 01:22 02/06/20 01:51 gm/ Premix IV 02/06/20 01:51 100 mls/hr ONETIME ONE Administration Naproxen 500 mg 02/06/20 01:41 Naprosyn PO 02/06/20 01:42 ONETIME ONE Ondansetron HCl 4 mg 02/06/20 01:46 02/06/20 01:52 Zofran IVPUSH 02/06/20 01:47 4 mg ONETIME ONE Administration Tramadol HCl 50 mg 02/06/20 01:45 Ultram PO 02/06/20 01:46 ONETIME ONE Departure - Departure Time of Disposition: 02:41 Disposition: Home, Self-Care 01 Condition: Good Clinical Impression: Pneumonia, Hyponatremia - Discharge Information Prescriptions: Azithromycin [Zithromax] 250 mg PO DAILY #4 tab Referrals: Marce Bowers NP [Primary Care Provider] - Forms: ED Department Discharge Additional Instructions: [facility] - Primary Care [address] [place] [address] [facility] [address] [place] [id number] The following information is given to patients seen in the emergency department who are being discharged to home. This information is to outline your options for follow-up care. We provide all patients seen in our emergency department with a follow-up referral. The need for follow-up, as well as the timing and circumstances, are variable depending upon the specifics of your emergency department visit. If you don't have a primary care physician on staff, we will provide you with a referral. We always advise you to contact your personal physician following an emergency department visit to inform them of the circumstance of the visit and for follow-up with them and/or the need for any referrals to a consulting specialist. The emergency department will also refer you to a specialist when appropriate. This referral assures that you have the opportunity for follow-up care with a specialist. All of these measure are taken in an effort to provide you with optimal care, which includes your follow-up. Under all circumstances we always encourage you to contact your private physician who remains a resource for coordinating your care. When calling for follow-up care, please make the office aware that this follow-up is from your recent emergency room visit. If for any reason you are refused follow-up, please contact the [facility] Emergency Department at and asked to speak to the emergency department charge nurse. Sepsis Event Note (ED) - Evaluation Sepsis Screening Result: No Definite Risk - Focused Exam Vital Signs: Vital Signs Temp Pulse Resp BP Pulse Ox 02/06/20 02:20 100.0 F 95 130/81 95 02/06/20 01:44 99.2 F 97 20 131/78 94 L 02/05/20 23:38 100.6 F 107 H 20 135/81 96 - My Orders Last 24 Hours: My Active Orders 02/06/20 00:07 Sodium Chloride 0.9% [Saline Flush] 10 ml FLUSH ASDIRECTED PRN Sodium Chloride 0.9% [Saline Flush] 2.5 ml FLUSH ASDIRECTED PRN Saline Lock Insert [OM.PC] Stat 02/06/20 00:08 Blood Culture x2 Reflex Set [OM.PC] Stat 02/06/20 00:27 Sodium Chloride 0.9% [Saline Flush] 10 ml FLUSH ASDIRECTED PRN Sodium Chloride 0.9% [Saline Flush] 2.5 ml FLUSH ASDIRECTED PRN Saline Lock Insert [OM.PC] Stat 02/06/20 00:30 Sodium Chloride 0.9% [Normal Saline] 1,000 ml IV ASDIRECTED 02/06/20 01:03 CULTURE BLOOD [BC] Stat 02/06/20 01:08 CULTURE BLOOD [BC] Stat - Assessment/Plan Last 24 Hours: My Active Orders 02/06/20 00:07 Sodium Chloride 0.9% [Saline Flush] 10 ml FLUSH ASDIRECTED PRN Sodium Chloride 0.9% [Saline Flush] 2.5 ml FLUSH ASDIRECTED PRN Saline Lock Insert [OM.PC] Stat 02/06/20 00:08 Blood Culture x2 Reflex Set [OM.PC] Stat 02/06/20 00:27 Sodium Chloride 0.9% [Saline Flush] 10 ml FLUSH ASDIRECTED PRN Sodium Chloride 0.9% [Saline Flush] 2.5 ml FLUSH ASDIRECTED PRN Saline Lock Insert [OM.PC] Stat 02/06/20 00:30 Sodium Chloride 0.9% [Normal Saline] 1,000 ml IV ASDIRECTED 02/06/20 01:03 CULTURE BLOOD [BC] Stat 02/06/20 01:08 CULTURE BLOOD [BC] Stat
[2020-02-06] MEDS ORDERED: Sodium Chloride 0.9% 1,000 ML IV SCH (00:30)
--- NOTE | 2020-02-06 01:02 | CR ---
INDICATION: Cough, fever, myalgia COMPARISON: 09/10/2018 FINDINGS: An erect single view of the chest was obtained at 0030 hours. There is a new mild patchy right infrahilar infiltrate superimposed over the anterior right 5th rib. I suspect that this is an early right lower lobe pneumonia. The rest of the chest is clear, with resolution of the previously seen mild patchy bibasilar atelectasis. There is no sign of any additional infiltrate and there is no sign of a pleural effusion. There is a new left subclavian infusion port with its tip in the superior vena cava at the junction of the brachiocephalic veins. There is no sign of pneumothorax on the left. The heart remains normal in size. The mediastinum is normal in appearance. The osseous structures are normal in appearance for the patient`s age. IMPRESSION: New mild patchy right infrahilar infiltrate, possible early right lower lobe pneumonia. Resolution of previously seen mild patchy bibasilar atelectasis. Dictated by Bola Warren MD @ Feb 06 2020 12:53AM Signed by Dr. Bola Warren @ Feb 06 2020 1:00AM
[2020-02-06] MEDS ORDERED: cefTRIAXone 1 GM in Premix Bag 1 BAG IV ONE (01:22)
[2020-02-06] MEDS ORDERED: Azithromycin 250 MG Tab PO ONE (01:39)
[2020-02-06] MEDS ORDERED: Naproxen 500 MG Tab PO ONE (01:41)
[2020-02-06] MEDS ORDERED: traMADol 50 MG Tab PO ONE (01:45)
[2020-02-06] MEDS ORDERED: Ondansetron 4 MG/2 ML SDV IVPUSH ONE (01:46)
[2020-02-06] MEDS ORDERED: Acetaminophen/HYDROcodone 325-7.5 MG Tab PO STA (01:47)
[2020-02-06 02:00] LABS: BLOOD UREA NITROGEN,BUN 10 mg/dL (7.0-18.0); CARBON DIOXIDE,CO2 23.9 mmol/L (21.0-32.0); CHLORIDE,CL 97 mmol/L (98-107); GLUCOSE RANDOM 113 mg/dL (74-106); POTASSIUM,K 4.3 mmol/L (3.5-5.1); SODIUM,NA 130 mmol/L (136-145)
== END 2020-02-06 03:02 | disposition home or self-care (01) ==
LOC: MW.ED 23:29
DX: J18.9 Pneumonia, unspecified organism (principal); E87.1 Hypo-osmolality and hyponatremia; E78.00 Pure hypercholesterolemia, unspecified; I11.0 Hypertensive heart disease with heart failure; I50.9 Heart failure, unspecified; J44.9 Chronic obstructive pulmonary disease, unspecified; Z86.73 Personal history of transient ischemic attack (TIA), and cerebral infarction without residual deficits; F41.9 Anxiety disorder, unspecified; F32.9 Major depressive disorder, single episode, unspecified; E66.9 Obesity, unspecified; Z68.31 Body mass index [BMI] 31.0-31.9, adult; Z20.828 Contact with and (suspected) exposure to other viral communicable diseases
CPT/HCPCS: 36415; 71045; 80053; 81001; 85025; 87040; 87635; 96361; 96365; 96375; 99283; A9270; J0696; J1642; J2405; 99284; U0002

== ENCOUNTER 2020-02-10 10:24 | Emergency (ER) | payer MEDICAID, OTHER ==
[2020-02-10] MEDS ORDERED: Sodium Chloride 0.9% 2.5 ML Syringe FLUSH PRN (10:41)
[2020-02-10] MEDS ORDERED: Lactated Ringers 1,000 ML IV ONE ×2 (10:41→13:04)
[2020-02-10] MEDS ORDERED: Sodium Chloride 0.9% 10 ML Syringe FLUSH PRN (10:41)
--- NOTE | 2020-02-10 10:41 | EDM.PDOC ---
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 She was diagnosed with pneumonia and she was discharged home on a prescription for azithromycin. She states that she has been feeling somewhat better over the past few days. Today, she went to an oncology clinic appointment and she also had an appointment to receive radiation therapy. While she was being triaged, she began experiencing palpitations along with dyspnea. Clinic staff took her vital signs and noted that her heart rate was in the 200s. She took some prescribed lorazepam and started to feel better but the clinic staff sent her here because they were concerned about the degree of her tachycardia. Here in the ER, she states that her palpitations have subsided and she is feeling somewhat better after taking her lorazepam. She does complain of some mild shortness of breath that she states that she has had for at least a few days now. She is not having any chest discomfort. She states that she finished her azithromycin prescription 1 or 2 days ago. She has been dealing with intermittent fatigue and nausea due to her chemotherapy and radiation and states that this is at baseline. ROS: A 10-point review of systems was negative, except as noted in the HPI (or in the ROS section of this note). Past medical history: Reviewed, no additional pertinent history. Surgical history: Reviewed in system, no additional pertinent history. Social history: Reviewed in system, no additional pertinent history. Family history: Reviewed in system, no additional pertinent history. PHYSICAL EXAM Vital signs reviewed. Nursing notes reviewed. Constitutional: Awake, alert, non-distressed. Head: Normocephalic, atraumatic. Eyes: EOMI, conjunctiva normal, no discharge, no scleral icterus. Ears, Nose, Throat: External ears and nose normal, moist oral mucosa. Cardiovascular: Tachycardic, 2+ radial pulse, capillary refill less than 2 seconds. Pulmonary: Mildly dyspneic, no accessory muscle use. Speaking in full sentences without difficulty. Abdomen/GI: Soft, nontender, nondistended, no guarding or rigidity, no masses. Musculoskeletal: No deformities. Integumentary: Appropriate color for ethnicity, warm, dry, no pallor or jaundice, no rash. Neurologic: Alert, answering questions appropriately, normal speech, no facial droop, moving all extremities well. Psychiatric: Appropriate mood and affect, normal thought process. elbows, throat, shoulder Pain Score (Numeric/FACES): 5 - Related Data Allergies Allergy/AdvReac Type Severity Reaction Status Date / Time No Known Allergies Allergy Verified 02/10/20 10:37 Home Meds: Home Meds Albuterol Sulfate [Proventil Hfa] 2 puff INH Q4H PRN 02/07/17 [History] Budesonide/Formoterol Fumarate [Symbicort 80-4.5 MCG] 2 puff INH DAILY 02/07/17 [History] Carvedilol [Coreg] 12.5 mg PO BIDMEALS 02/07/17 [History] Sertraline [Zoloft] 125 mg PO BEDTIME 02/07/17 [History] Simvastatin [Zocor] 10 mg PO BEDTIME 02/07/17 [History] Tranexamic Acid [Lysteda] 650 mg PO BEDTIME 01/09/20 [History] traZODone HCl [Trazodone HCl] 50 - 150 mg PO BEDTIME PRN 01/09/20 [History] LORazepam [Ativan] 1 mg PO ASDIRECTED 02/05/20 [History] Ondansetron [Zofran] 8 mg PO Q8H PRN 02/05/20 [History] Prochlorperazine [Compazine] 10 mg PO Q6H PRN 02/05/20 [History] Past Medical History HEENT History: Reports: Other (See Below) Other HEENT History: wears glasses Cardiovascular History: Reports: Arrhythmia, High Cholesterol, Hypertension, Other (See Below) Other Cardiovascular History: atrial aneurysm, h/o (HFpEF) heart failure with preserved ejection fraction Respiratory History: Reports: COPD, SOB, Other (See Below) Other Respiratory History: emphysema, hx of hemothorax, 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 and was told never to get tested again Gastrointestinal History: Reports: None Genitourinary History: Reports: None [employer]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 Left arm fx at age 11 Neurological History: Reports: TIA, Other (See Below) Other Neuro History: cryptogenic stroke - states "stroke in heart 20 years ago" Psychiatric History: Reports: Anxiety, Depression, Panic Attack, PTSD Endocrine/Metabolic History: Reports: Obesity/BMI 30+ Hematologic History: Reports: Anemia, Blood Transfusion(s) Immunologic History: Reports: None Oncologic (Cancer) History: Reports: Cervix Dermatologic History: Reports: None - Infectious Disease History Infectious Disease History: Reports: Chicken Pox, Mumps - Past Surgical History Head Surgeries/Procedures: Reports: None HEENT Surgical History: Reports: Cataract Surgery, Myringotomy w Tube(s), Tonsil lectomy Cardiovascular Surgical History: Reports: None Respiratory Surgical History: Reports: None GI Surgical History: Reports: None Female Surgical History: Reports: Section, Tubal Ligation Other Female Surgeries/Procedures: c/section x2, laparotomy 2 days following last c/section for internal bleeding Endocrine Surgical History: Reports: None Neurological Surgical History: Reports: None Musculoskeletal Surgical History: Reports: None Oncologic Surgical History: Reports: None Other Oncologic Surgeries/Procedures: Port for chemo to left ches Dermatological Surgical History: Reports: None Social & Family History - Family History Family Medical History: Noncontributory HEENT: Reports: None Cardiac: Reports: High Cholesterol, Hypertension, [place] Respiratory: Reports: None GI: Reports: None : Reports: None OBGYN: Reports: Musculoskeletal: Reports: Arthritis, Gout Neurological: Reports: None Psychiatric: Reports: Anxiety, Depression Endocrine/Metabolic: Reports: None Hematologic: Reports: None Immunologic: Reports: None Dermatologic: Reports: None Oncologic: Reports: Lymphoma - Caffeine Use Caffeine Use: Reports: Energy Drinks, Soda ED ROS GENERAL - Review of Systems Review Of Systems: See Below ED EXAM, GENERAL - Physical Exam Exam: See Below EKG INTERPRETATION EKG Interpretation Comments: 12-Lead ECG Interpretation Acquired: 10:40 AM Rhythm: Sinus tachycardia Rate: 109 bpm [place]: Normal Intervals: Normal Ectopy: 2 unifocal PVCs RV Strain: No obvious RV strain pattern. ST Segments/T-Waves: No notable changes Acute Ischemic Changes: None apparent Interpretation: No STEMI Course - Vital Signs Text/Narrative:: Differential diagnosis includes but is not limited to: Sepsis, bacteremia, pleural effusion, malignant effusion, pulmonary embolism, acute coronary syndrome, myocarditis, congestive heart failure, and many others. Laboratory study shows mild leukopenia but normal neutrophil count. INR normal. Lactate elevated at 2.6. Metabolic panel shows stable hyponatremia at 128. Normal renal function. Glucose 193. ALT 77. Troponin negative, BNP within normal limits. TSH is within normal limits as well. Urinalysis shows trace protein but no blood or evidence of infection. Chest x-rays are clear. We did obtain a CT pulmonary angiogram given the history of cancer, this shows no pulmonary infiltrate or evidence of pulmonary embolism. 1:07 PM: Heart rate improved to 102, down from 130. We will plan to give a second liter of fluid and reevaluate, redraw lactate, patient may be discharged home if she is feeling better. She is no longer feeling short of breath. Her temperature normalized on recheck. I have a low suspicion for sepsis at this point. 1:52 PM: Repeat lactate is 0.9. At the bedside, heart rate was noted to be in the high 80s. Patient is feeling much better. I see no evidence of an active infectious process. There is no evidence of a pulmonary infiltrate to suggest pneumonia. The patient recently finished antibiotics. She is afebrile and is not having any chills. There are no other focal infectious symptoms at this point. Her tachycardia is resolved and she is feeling much better. I feel comfortable discharging her home at this point. I did disability counselor her about her elevated blood glucose as it is close to the diagnostic cutoff for diabetes mellitus. She states that she is going to see her oncologist in a few days and will have her blood work rechecked there. Otherwise her hyponatremia is at baseline. She will be discharged home and was given strict return precautions for fever, chills, chest pain, shortness of breath, or any other new or concerning symptoms. Plan: Patient is stable to discharge home with outpatient primary care and oncology clinic follow-up. Strict emergency department return precautions were provided, patient indicated understanding. All questions were answered prior to departure. Discharged in good condition. Last Recorded V/S: Last Vital Signs Temp 36.4 C 02/10/20 13:12 Pulse 106 H 02/10/20 13:12 Resp 18 02/10/20 13:12 BP 119/83 02/10/20 13:12 Pulse Ox 98 02/10/20 13:12 - Orders/Labs/Meds Orders: Active Orders 24 hr Category Date Time Status Cardiac Monitoring [RC] . DIRECTED Care 02/10/20 10:41 Active EKG Documentation Completion [RC] STAT Care 02/10/20 10:41 Active Pulse Oximetry [RC] ASDIRECTED Care 02/10/20 10:41 Active CULTURE BLOOD [BC] Stat Lab 02/10/20 11:30 Received CULTURE BLOOD [BC] Stat Lab 02/10/20 11:40 Received Lactated Ringers [Ringers, Lactated] 1,000 ml Med 02/10/20 13:04 Active IV .BOLUS Sodium Chloride 0.9% [Saline Flush] Med 02/10/20 10:41 Active 10 ml FLUSH ASDIRECTED PRN Sodium Chloride 0.9% [Saline Flush] Med 02/10/20 10:41 Active 2.5 ml FLUSH ASDIRECTED PRN Blood Culture x2 Reflex Set [OM.PC] Stat Oth 02/10/20 11:19 Ordered Saline Lock Insert [OM.PC] Stat Oth 02/10/20 10:41 Ordered Medication Orders Lactated Ringer's (Ringers, Lactated) 1,000 mls @ 999 mls/hr IV .BOLUS ONE Stop: 02/10/20 14:04 Last Admin: 02/10/20 13:08 Dose: 999 mls/hr Documented by: BRUNSAM Sodium Chloride (Saline Flush) 10 ml FLUSH ASDIRECTED PRN PRN Reason: Keep Vein Open Last Admin: 02/10/20 11:00 Dose: 10 ml Documented by: BRUNSAM Sodium Chloride (Saline Flush) 2.5 ml FLUSH ASDIRECTED PRN PRN Reason: Keep Vein Open Last Admin: 02/10/20 11:00 Dose: 2.5 ml Documented by: CIRO Labs: Laboratory Tests 02/10/20 02/10/20 02/10/20 Range/Units 10:44 10:44 10:44 WBC 3.46 L (4.0-11.0) K/uL RBC 4.21 L (4.30-5.90) M/uL Hgb 13.0 (12.0-16.0) g/dL Hct 39.9 (36.0-46.0) % MCV 94.8 (80.0-98.0) fL MCH 30.9 (27.0-32.0) pg MCHC 32.6 (31.0-37.0) g/dL RDW Std Deviation 44.3 (28.0-62.0) fl RDW Coeff of Sara 13 (11.0-15.0) % Plt Count 111 L (150-400) K/uL MPV 9.80 (7.40-12.00) fL Neut % (Auto) 73.7 (48.0-80.0) % Lymph % (Auto) 10.7 L (16.0-40.0) % [place] % (Auto) 8.1 (0.0-15.0) % Eos % (Auto) 6.9 (0.0-7.0) % Baso % (Auto) 0.6 (0.0-1.5) % Neut # (Auto) 2.6 (1.4-5.7) K/uL Lymph # (Auto) 0.4 L (0.6-2.4) K/uL [place] # (Auto) 0.3 (0.0-0.8) K/uL Eos # (Auto) 0.2 (0.0-0.7) K/uL Baso # (Auto) 0.0 (0.0-0.1) K/uL Nucleated RBC % 0.0 /100WBC Nucleated RBCs # 0 K/uL INR Lactate 2.6 H* (0.20-2.00) mmol/L Sodium 128 L (136-145) mmol/L Potassium 4.2 (3.5-5.1) mmol/L Chloride 92 L (98-107) mmol/L Carbon Dioxide 21.1 (21.0-32.0) mmol/L BUN 14 (7.0-18.0) mg/dL Creatinine 0.8 (0.6-1.0) mg/dL Est Cr Clr Drug Dosing 78.18 mL/min Estimated GFR (MDRD) > 60.0 ml/min Glucose 193 H (74-106) mg/dL Calcium 9.6 (8.5-10.1) mg/dL Total Bilirubin 0.2 (0.2-1.0) mg/dL AST 35 (15-37) IU/L ALT 77 H (14-63) IU/L Alkaline Phosphatase 116 (46-116) U/L Troponin I < 0.050 (0.000-0.056) ng/mL B-Natriuretic Peptide (<100) PG/ML Total Protein 8.3 H (6.4-8.2) g/dL Albumin 4.4 (3.4-5.0) g/dL Globulin 3.9 (2.6-4.0) g/dL Albumin/Globulin Ratio 1.1 (0.9-1.6) TSH 3rd Generation 1.26 (0.36-3.74) uIU/mL Urine Color Urine Appearance Urine pH (5.0-8.0) Ur Specific [place] (1.001-1.035) Urine Protein (NEGATIVE) mg/dL Urine Glucose (UA) (NEGATIVE) mg/dL Urine Ketones (NEGATIVE) mg/dL Urine Occult Blood (NEGATIVE) Urine Nitrite (NEGATIVE) Urine Bilirubin (NEGATIVE) Urine Urobilinogen (<2.0) EU/dL Ur Leukocyte Esterase (NEGATIVE) Urine RBC (0-2/HPF) Urine WBC (0-5/HPF) Ur Epithelial Cells (NONE-FEW) Urine Bacteria (NEGATIVE) 02/10/20 02/10/20 02/10/20 Range/Units 10:44 10:44 10:56 WBC (4.0-11.0) K/uL RBC (4.30-5.90) M/uL Hgb (12.0-16.0) g/dL Hct (36.0-46.0) % MCV (80.0-98.0) fL MCH (27.0-32.0) pg MCHC (31.0-37.0) g/dL RDW Std Deviation (28.0-62.0) fl RDW Coeff of Sara (11.0-15.0) % Plt Count (150-400) K/uL MPV (7.40-12.00) fL Neut % (Auto) (48.0-80.0) % Lymph % (Auto) (16.0-40.0) % [place] % (Auto) (0.0-15.0) % Eos % (Auto) (0.0-7.0) % Baso % (Auto) (0.0-1.5) % Neut # (Auto) (1.4-5.7) K/uL Lymph # (Auto) (0.6-2.4) K/uL [place] # (Auto) (0.0-0.8) K/uL Eos # (Auto) (0.0-0.7) K/uL Baso # (Auto) (0.0-0.1) K/uL Nucleated RBC % /100WBC Nucleated RBCs # K/uL INR 0.95 Lactate (0.20-2.00) mmol/L Sodium (136-145) mmol/L Potassium (3.5-5.1) mmol/L Chloride (98-107) mmol/L Carbon Dioxide (21.0-32.0) mmol/L BUN (7.0-18.0) mg/dL Creatinine (0.6-1.0) mg/dL Est Cr Clr Drug Dosing mL/min Estimated GFR (MDRD) ml/min Glucose (74-106) mg/dL Calcium (8.5-10.1) mg/dL Total Bilirubin (0.2-1.0) mg/dL AST (15-37) IU/L ALT (14-63) IU/L Alkaline Phosphatase (46-116) U/L Troponin I (0.000-0.056) ng/mL B-Natriuretic Peptide 44 (<100) PG/ML Total Protein (6.4-8.2) g/dL Albumin (3.4-5.0) g/dL Globulin (2.6-4.0) g/dL Albumin/Globulin Ratio (0.9-1.6) TSH 3rd Generation (0.36-3.74) uIU/mL Urine Color YELLOW Urine Appearance CLEAR Urine pH 6.0 (5.0-8.0) Ur Specific [place] 1.020 (1.001-1.035) Urine Protein TRACE H (NEGATIVE) mg/dL Urine Glucose (UA) 100 H (NEGATIVE) mg/dL Urine Ketones NEGATIVE (NEGATIVE) mg/dL Urine Occult Blood NEGATIVE (NEGATIVE) Urine Nitrite NEGATIVE (NEGATIVE) Urine Bilirubin NEGATIVE (NEGATIVE) Urine Urobilinogen 0.2 (<2.0) EU/dL Ur Leukocyte Esterase NEGATIVE (NEGATIVE) Urine RBC 0-2 (0-2/HPF) Urine WBC 0-3 (0-5/HPF) Ur Epithelial Cells FEW (NONE-FEW) Urine Bacteria FEW (NEGATIVE) 02/10/20 Range/Units 13:12 WBC (4.0-11.0) K/uL RBC (4.30-5.90) M/uL Hgb (12.0-16.0) g/dL Hct (36.0-46.0) % MCV (80.0-98.0) fL MCH (27.0-32.0) pg MCHC (31.0-37.0) g/dL RDW Std Deviation (28.0-62.0) fl RDW Coeff of Sara (11.0-15.0) % Plt Count (150-400) K/uL MPV (7.40-12.00) fL Neut % (Auto) (48.0-80.0) % Lymph % (Auto) (16.0-40.0) % [place] % (Auto) (0.0-15.0) % Eos % (Auto) (0.0-7.0) % Baso % (Auto) (0.0-1.5) % Neut # (Auto) (1.4-5.7) K/uL Lymph # (Auto) (0.6-2.4) K/uL [place] # (Auto) (0.0-0.8) K/uL Eos # (Auto) (0.0-0.7) K/uL Baso # (Auto) (0.0-0.1) K/uL Nucleated RBC % /100WBC Nucleated RBCs # K/uL INR Lactate 0.9 (0.20-2.00) mmol/L Sodium (136-145) mmol/L Potassium (3.5-5.1) mmol/L Chloride (98-107) mmol/L Carbon Dioxide (21.0-32.0) mmol/L BUN (7.0-18.0) mg/dL Creatinine (0.6-1.0) mg/dL Est Cr Clr Drug Dosing mL/min Estimated GFR (MDRD) ml/min Glucose (74-106) mg/dL Calcium (8.5-10.1) mg/dL Total Bilirubin (0.2-1.0) mg/dL AST (15-37) IU/L ALT (14-63) IU/L Alkaline Phosphatase (46-116) U/L Troponin I (0.000-0.056) ng/mL B-Natriuretic Peptide (<100) PG/ML Total Protein (6.4-8.2) g/dL Albumin (3.4-5.0) g/dL Globulin (2.6-4.0) g/dL Albumin/Globulin Ratio (0.9-1.6) TSH 3rd Generation (0.36-3.74) uIU/mL Urine Color Urine Appearance Urine pH (5.0-8.0) Ur Specific [place] (1.001-1.035) Urine Protein (NEGATIVE) mg/dL Urine Glucose (UA) (NEGATIVE) mg/dL Urine Ketones (NEGATIVE) mg/dL Urine Occult Blood (NEGATIVE) Urine Nitrite (NEGATIVE) Urine Bilirubin (NEGATIVE) Urine Urobilinogen (<2.0) EU/dL Ur Leukocyte Esterase (NEGATIVE) Urine RBC (0-2/HPF) Urine WBC (0-5/HPF) Ur Epithelial Cells (NONE-FEW) Urine Bacteria (NEGATIVE) Meds: Medications Generic Name Dose Route Start Last Admin Trade Name Freq PRN Reason Stop Dose Admin Lactated Ringer's 1,000 mls @ 999 mls/hr 02/10/20 13:04 02/10/20 13:08 Ringers, Lactated IV 02/10/20 14:04 999 mls/hr .BOLUS ONE Administration Sodium Chloride 10 ml 02/10/20 10:41 02/10/20 11:00 Saline Flush FLUSH 10 ml ASDIRECTED PRN Administration Keep Vein Open Sodium Chloride 2.5 ml 02/10/20 10:41 02/10/20 11:00 Saline Flush FLUSH 2.5 ml ASDIRECTED PRN Administration Keep Vein Open Discontinued Medications Generic Name Dose Route Start Last Admin Trade Name Freq PRN Reason Stop Dose Admin Lactated Ringer's 1,000 mls @ 999 mls/hr 02/10/20 10:41 02/10/20 10:58 Ringers, Lactated IV 02/10/20 11:41 999 mls/hr .BOLUS ONE Administration Iopamidol 100 ml 02/10/20 12:14 02/10/20 12:15 Isovue Multipack-370 (76%) IVPUSH 02/10/20 12:15 100 ml ONETIME ONE Administration Departure - Departure Time of Disposition: 13:54 Disposition: Home, Self-Care 01 Condition: Good Clinical Impression: Palpitations, Tachycardia, Hyperglycemia Instructions: Sinus Tachycardia, Hyperglycemia, [id number], Palpitations Referrals: PCP,None [Primary Care Provider] - Forms: ED Department Discharge Additional Instructions: You were seen in the emergency department for palpitations and fast heart rate along with shortness of breath Your EKG looks reassuring, your heart rate is now normal. Your blood work looks reassuring other than elevated blood sugar. Please have this reevaluated by your oncologist or your primary care doctor the next few weeks. Warning signs to come back to the ER include chest pain, worsening shortness of breath, fever, chills, or any other new or concerning symptoms. Please return the emergency department immediately if your symptoms worsen or if you feel worse. Thank you for choosing the [facility] emergency department in [place] for your medical needs today. It was a pleasure caring for you. The following information is given to patients seen in the emergency department who are being discharged. This information is to outline your options for follow-up care. We provide all patients seen in our emergency department with a follow-up referral. The need for follow-up, as well as the timing and circumstances, are variable depending upon the specifics of your emergency department visit. If you don't have a primary care physician on staff, we will provide you with a referral. We always advise you to contact your personal physician following an emergency department visit to inform them of the circumstance of the visit and for follow-up with them and/or the need for any referrals to a consulting specialist. The emergency department will also refer you to a specialist when appropriate. This referral assures that you have the opportunity for follow-up care with a specialist. All of these measure are taken in an effort to provide you with optimal care, which includes your follow-up. Under all circumstances we always encourage you to contact your private physician who remains a resource for coordinating your care. When calling for follow-up care, please make the office aware that this follow-up is from your recent emergency room visit. If for any reason you are refused follow-up, please contact the [facility] Emergency Department at and asked to speak to the emergency department charge nurse. If you do not have a primary care physician that is caring for you, you can contact these clinics below to set up an appointment to establish care: [facility] - Primary Care [address] [place] [id number] [facility] [address] [place] [id number] Sepsis Event Note (ED) - Evaluation Sepsis Screening Result: No Definite Risk - Focused Exam Vital Signs: Vital Signs Temp Pulse Resp BP BP Pulse Ox 02/10/20 13:12 36.4 C 106 H 18 119/83 98 02/10/20 10:32 35.9 C L 133 H 18 170/104 H 97 - My Orders Last 24 Hours: My Active Orders 02/10/20 10:41 Cardiac Monitoring [RC] . DIRECTED EKG Documentation Completion [RC] STAT Pulse Oximetry [RC] ASDIRECTED Sodium Chloride 0.9% [Saline Flush] 10 ml FLUSH ASDIRECTED PRN Sodium Chloride 0.9% [Saline Flush] 2.5 ml FLUSH ASDIRECTED PRN Saline Lock Insert [OM.PC] Stat 02/10/20 11:19 Blood Culture x2 Reflex Set [OM.PC] Stat 02/10/20 11:30 CULTURE BLOOD [BC] Stat 02/10/20 11:40 CULTURE BLOOD [BC] Stat 02/10/20 13:04 Lactated Ringers [Ringers, Lactated] 1,000 ml IV .BOLUS - Assessment/Plan Last 24 Hours: My Active Orders 02/10/20 10:41 Cardiac Monitoring [RC] . DIRECTED EKG Documentation Completion [RC] STAT Pulse Oximetry [RC] ASDIRECTED Sodium Chloride 0.9% [Saline Flush] 10 ml FLUSH ASDIRECTED PRN Sodium Chloride 0.9% [Saline Flush] 2.5 ml FLUSH ASDIRECTED PRN Saline Lock Insert [OM.PC] Stat 02/10/20 11:19 Blood Culture x2 Reflex Set [OM.PC] Stat 02/10/20 11:30 CULTURE BLOOD [BC] Stat 02/10/20 11:40 CULTURE BLOOD [BC] Stat 02/10/20 13:04 Lactated Ringers [Ringers, Lactated] 1,000 ml IV .BOLUS
[2020-02-10 11:28] LABS: BLOOD UREA NITROGEN,BUN 14 mg/dL (7.0-18.0); CARBON DIOXIDE,CO2 21.1 mmol/L (21.0-32.0); CHLORIDE,CL 92 mmol/L (98-107); GLUCOSE RANDOM 193 mg/dL (74-106); POTASSIUM,K 4.2 mmol/L (3.5-5.1); SODIUM,NA 128 mmol/L (136-145)
[2020-02-10] MEDS ORDERED: Iopamidol 755 MG/ML 500 ML Multipack Bottle IVPUSH ONE (12:14)
--- NOTE | 2020-02-10 12:33 | CR ---
INDICATION: Dyspnea. TECHNIQUE: PA and lateral. COMPARISON: 02/06/2020. FINDINGS: No obvious change. No infiltrate or pleural effusion. Heart size and pulmonary vasculature within normal limits. Port-A-Cath in the SVC. No significant bony abnormality. IMPRESSION: No significant change. No active disease. Dictated by Jam Baltazar MD @ Feb 10 2020 12:30PM Signed by Dr. Jam Baltazar @ Feb 10 2020 12:32PM
--- NOTE | 2020-02-10 12:42 | CT ---
INDICATION: Dyspnea and tachycardia with clinical concern for pulmonary embolus COMPARISON: A noncontrast chest CT from October 19, 2018 TECHNIQUE: : CT examination of the chest was performed with the uneventful intravenous administration of 100 cc of Isovue 370 while thin axial sections were obtained from above the apices of the lungs to the lung bases. Please note that all CT scans at this facility use dose modulation, iterative reconstruction, and/or weight-based dosing when appropriate to reduce radiation dose to as low as reasonably achievable. FINDINGS: : HEART and MEDIASTINUM: The heart size is normal. There is no mediastinal or hilar adenopathy or mass. There is no pericardial effusion. PULMONARY ARTERIAL CIRCULATION: There is no visible intraluminal filling defect to suggest pulmonary embolus. LUNGS: The lungs show no focal consolidation or mass. The airways appear normal. There is minimal basilar atelectasis. PLEURAL SPACES: There is no pleural effusion, pneumothorax or pleural based mass. VISUALIZED UPPER ABDOMEN: The limited visualized upper abdominal structures appear normal. OSSEOUS STRUCTURES: Age-appropriate appearance. No acute fracture or destructive process. TUBES and LINES: None. IMPRESSION: There are no findings of pulmonary embolus. Minimal bibasilar subsegmental atelectasis. Please note that all CT scans at this facility use dose modulation, iterative reconstruction, and/or weight-based dosing when appropriate to reduce radiation dose to as low as reasonably achievable. Dictated by Ja Solorzano MD @ Feb 10 2020 12:34PM Signed by Dr. Ja Solorzano @ Feb 10 2020 12:41PM
== END 2020-02-10 14:26 | disposition home or self-care (01) ==
LOC: MW.ED 10:24
DX: R00.2 Palpitations (principal); R00.0 Tachycardia, unspecified; R73.9 Hyperglycemia, unspecified; J44.9 Chronic obstructive pulmonary disease, unspecified; E78.5 Hyperlipidemia, unspecified; I11.0 Hypertensive heart disease with heart failure; I50.9 Heart failure, unspecified; F41.9 Anxiety disorder, unspecified; F32.9 Major depressive disorder, single episode, unspecified; E66.9 Obesity, unspecified; Z68.31 Body mass index [BMI] 31.0-31.9, adult; Z79.899 Other long term (current) drug therapy; Z86.73 Personal history of transient ischemic attack (TIA), and cerebral infarction without residual deficits
CPT/HCPCS: 36415; 71046; 71275; 80053; 81001; 83605; 83880; 84443; 84484; 85025; 85610; 87040; 93005; 99285; J7120; Q9967; 93010; 99284

== ENCOUNTER 2020-02-13 10:57 | Inpatient (IN) | payer MEDICAID, OTHER ==
--- NOTE | 2020-02-13 11:32 | EDM.PDOC ---
ED HPI GENERAL MEDICAL PROBLEM - General Chief Complaint: General Stated Complaint: FEVER,SHORTNESS OF BREATHE Time Seen by Provider: 02/13/20 11:03 - History of Present Illness INITIAL COMMENTS - FREE TEXT/NARRATIVE: History of present illness: [] This patient presents with congestion body aches and a fever up to 100 degrees at home yesterday. She is a cancer patient undergoing chemo and radiation with a known neutropenia of 2.3. She has had a mild cough no trouble breathing she also has developed a rash which is diffuse and associated with no pain or itching. She has not had this rash before. She was apparently treated for pneumonia a week ago. Review of systems: As per history of present illness and below otherwise all systems reviewed and negative. Past medical history: As per history of present illness and as reviewed below otherwise noncontributory. Surgical history: As per history of present illness and as reviewed below otherwise noncontributory. Social history: No reported history of drug or alcohol abuse. Family history: As per history of present illness and as reviewed below otherwise noncontributory. Physical exam: HEENT: Atraumatic, normocephalic, pupils reactive, negative for conjunctival pallor or scleral icterus, mucous membranes moist, throat clear, neck supple, nontender, trachea midline. Lungs: Clear to auscultation, breath sounds equal bilaterally, chest nontender. Heart: S1S2, regular, negative for clicks, rubs, or JVD. Abdomen: Soft, nondistended, nontender. Negative for masses or hepatosplenomegaly. Negative for costovertebral tenderness. Pelvis: Stable nontender. Genitourinary: Deferred. Rectal: Deferred. Extremities: Atraumatic, negative for cords or calf pain. Neurovascular unremarkable. Neuro: Awake, alert, oriented. Cranial nerves II through XII unremarkable. Cerebellum unremarkable. Motor and sensory unremarkable throughout. Exam nonfocal. Skin: Diffuse nonpalpable non-blanchable macular rash that does not involve the mucous membranes palms or soles. It is nontender and not itchy Diagnostics: [] Therapeutics: [] Impression: Neutropenic fever and a non-blanchable rash Plan: Septic work-up COVID testing admission empiric antibiotics [] Definitive disposition and diagnosis as appropriate pending reevaluation and review of above. joints and legs Pain Score (Numeric/FACES): 5 - Related Data Allergies Allergy/AdvReac Type Severity Reaction Status Date / Time No Known Allergies Allergy Verified 02/13/20 11:13 Home Meds: Home Meds Albuterol Sulfate [Proventil Hfa] 2 puff INH Q4H PRN 02/07/17 [History] Budesonide/Formoterol Fumarate [Symbicort 80-4.5 MCG] 2 puff INH DAILY 02/07/17 [History] Carvedilol [Coreg] 12.5 mg PO BIDMEALS 02/07/17 [History] Sertraline [Zoloft] 125 mg PO BEDTIME 02/07/17 [History] Simvastatin [Zocor] 10 mg PO BEDTIME 02/07/17 [History] Tranexamic Acid [Lysteda] 650 mg PO BEDTIME 01/09/20 [History] traZODone HCl [Trazodone HCl] 50 - 150 mg PO BEDTIME PRN 01/09/20 [History] LORazepam [Ativan] 1 mg PO ASDIRECTED 02/05/20 [History] Ondansetron [Zofran] 8 mg PO Q8H PRN 02/05/20 [History] Prochlorperazine [Compazine] 10 mg PO Q6H PRN 02/05/20 [History] Past Medical History HEENT History: Reports: Other (See Below) Other HEENT History: wears glasses Cardiovascular History: Reports: Arrhythmia, High Cholesterol, Hypertension, Other (See Below) Other Cardiovascular History: atrial aneurysm, h/o (HFpEF) heart failure with preserved ejection fraction Respiratory History: Reports: COPD, SOB, Other (See Below) Other Respiratory History: emphysema, hx of hemothorax, 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 Left arm fx at age 11 Neurological History: Reports: TIA, Other (See Below) Other Neuro History: cryptogenic stroke - states "stroke in heart 20 years ago" Psychiatric History: Reports: Anxiety, Depression, Panic Attack, PTSD Endocrine/Metabolic History: Reports: Obesity/BMI 30+ Hematologic History: Reports: Anemia, Blood Transfusion(s) Immunologic History: Reports: None Oncologic (Cancer) History: Reports: Cervix Dermatologic History: Reports: None - Infectious Disease History Infectious Disease History: Reports: Chicken Pox, Mumps - Past Surgical History Head Surgeries/Procedures: Reports: None HEENT Surgical History: Reports: Cataract Surgery, Myringotomy w Tube(s), Tonsillectomy Cardiovascular Surgical History: Reports: None Respiratory Surgical History: Reports: None GI Surgical History: Reports: None Female Surgical History: Reports: Section, Tubal Ligation Other Female Surgeries/Procedures: c/section x2, laparotomy 2 days following last c/section for internal bleeding Endocrine Surgical History: Reports: None Neurological Surgical History: Reports: None Musculoskeletal Surgical History: Reports: None Oncologic Surgical History: Reports: None Other Oncologic Surgeries/Procedures: Port for chemo to left ches Dermatological Surgical History: Reports: None Social & Family History - Family History Family Medical History: Noncontributory HEENT: Reports: None Cardiac: Reports: High Cholesterol, Hypertension, [place] Respiratory: Reports: None GI: Reports: None : Reports: None OBGYN: Reports: Musculoskeletal: Reports: Arthritis, Gout Neurological: Reports: None Psychiatric: Reports: Anxiety, Depression Endocrine/Metabolic: Reports: None Hematologic: Reports: None Immunologic: Reports: None Dermatologic: Reports: None Oncologic: Reports: Lymphoma - Caffeine Use Caffeine Use: Reports: Energy Drinks, Soda ED ROS GENERAL - Review of Systems Review Of Systems: See Below ED EXAM, GENERAL - Physical Exam Exam: See Below Course - Vital Signs Text/Narrative:: At 11:30 AM I attempted to talk to Dr. Chi with oncology there was no answer and no answering machine. One-view portable chest there is a apparently accessed ports entering the left subclavian vein the lungs are clear no acute cardiopulmonary pathology is evident. Read and interpreted by me Attempted to reach Dr. Chi 1:45 PM no answer no answering machine. Case with the hospitalist at 150 Dr. Hayes will accept the patient to [facility] for neutropenic fever. Patient be treated with cefepime empirically COVID test is pending she is hemodynamically stable at this time. Last Recorded V/S: Last Vital Signs Temp 36.6 C 02/13/20 13:49 Pulse 87 02/13/20 13:49 Resp 18 02/13/20 13:49 BP 100/72 02/13/20 13:49 Pulse Ox 100 02/13/20 13:49 - Orders/Labs/Meds Orders: Active Orders 24 hr Category Date Time Status CORONAVIRUS COVID-19 PCR PHL Stat Lab 02/13/20 13:49 Ordered CULTURE BLOOD [BC] Stat Lab 02/13/20 11:57 Received CULTURE BLOOD [BC] Stat Lab 02/13/20 12:32 Results Cefepime [Maxipime in D5W 1 GM/50 ML] 1 gm Med 02/13/20 13:48 Active Premix Bag 1 bag IV ONETIME Blood Culture x2 Reflex Set [OM.PC] Stat Oth 02/13/20 11:24 Ordered Medication Orders Cefepime HCl 1 gm/ Premix 50 mls @ 100 mls/hr IV ONETIME ONE Stop: 02/13/20 14:17 Labs: Laboratory Tests 02/13/20 02/13/20 02/13/20 Range/Units 11:48 11:48 11:50 WBC 2.53 L (4.0-11.0) K/uL RBC 3.33 L (4.30-5.90) M/uL Hgb 10.2 L (12.0-16.0) g/dL Hct 31.3 L (36.0-46.0) % MCV 94.0 (80.0-98.0) fL MCH 30.6 (27.0-32.0) pg MCHC 32.6 (31.0-37.0) g/dL RDW Std Deviation 43.6 (28.0-62.0) fl RDW Coeff of Sara 13 (11.0-15.0) % Plt Count 100 L (150-400) K/uL MPV 10.00 (7.40-12.00) fL Neut % (Auto) 90.1 H (48.0-80.0) % Lymph % (Auto) 1.6 L (16.0-40.0) % [place] % (Auto) 5.9 (0.0-15.0) % Eos % (Auto) 2.4 (0.0-7.0) % Baso % (Auto) 0.0 (0.0-1.5) % Neut # (Auto) 2.3 (1.4-5.7) K/uL Lymph # (Auto) 0.0 L (0.6-2.4) K/uL [place] # (Auto) 0.2 (0.0-0.8) K/uL Eos # (Auto) 0.1 (0.0-0.7) K/uL Baso # (Auto) 0.0 (0.0-0.1) K/uL Nucleated RBC % 0.0 /100WBC Nucleated RBCs # 0 K/uL INR APTT (18.6-31.3) SEC Lactate 1.5 (0.20-2.00) mmol/L Sodium (136-145) mmol/L Potassium (3.5-5.1) mmol/L Chloride (98-107) mmol/L Carbon Dioxide (21.0-32.0) mmol/L BUN (7.0-18.0) mg/dL Creatinine (0.6-1.0) mg/dL Est Cr Clr Drug Dosing mL/min Estimated GFR (MDRD) ml/min Glucose (74-106) mg/dL Calcium (8.5-10.1) mg/dL Total Bilirubin (0.2-1.0) mg/dL AST (15-37) IU/L ALT (14-63) IU/L Alkaline Phosphatase (46-116) U/L Total Protein (6.4-8.2) g/dL Albumin (3.4-5.0) g/dL Globulin (2.6-4.0) g/dL Albumin/Globulin Ratio (0.9-1.6) Urine Color YELLOW Urine Appearance CLEAR Urine pH 6.0 (5.0-8.0) Ur Specific [place] 1.010 (1.001-1.035) Urine Protein NEGATIVE (NEGATIVE) mg/dL Urine Glucose (UA) NEGATIVE (NEGATIVE) mg/dL Urine Ketones NEGATIVE (NEGATIVE) mg/dL Urine Occult Blood NEGATIVE (NEGATIVE) Urine Nitrite NEGATIVE (NEGATIVE) Urine Bilirubin NEGATIVE (NEGATIVE) Urine Urobilinogen 0.2 (<2.0) EU/dL Ur Leukocyte Esterase NEGATIVE (NEGATIVE) Urine RBC 0-2 (0-2/HPF) Urine WBC 0-2 (0-5/HPF) Ur Epithelial Cells RARE (NONE-FEW) Urine Bacteria NOT SEEN (NEGATIVE) 02/13/20 02/13/20 Range/Units 12:36 12:36 WBC (4.0-11.0) K/uL RBC (4.30-5.90) M/uL Hgb (12.0-16.0) g/dL Hct (36.0-46.0) % MCV (80.0-98.0) fL MCH (27.0-32.0) pg MCHC (31.0-37.0) g/dL RDW Std Deviation (28.0-62.0) fl RDW Coeff of Sara (11.0-15.0) % Plt Count (150-400) K/uL MPV (7.40-12.00) fL Neut % (Auto) (48.0-80.0) % Lymph % (Auto) (16.0-40.0) % [place] % (Auto) (0.0-15.0) % Eos % (Auto) (0.0-7.0) % Baso % (Auto) (0.0-1.5) % Neut # (Auto) (1.4-5.7) K/uL Lymph # (Auto) (0.6-2.4) K/uL [place] # (Auto) (0.0-0.8) K/uL Eos # (Auto) (0.0-0.7) K/uL Baso # (Auto) (0.0-0.1) K/uL Nucleated RBC % /100WBC Nucleated RBCs # K/uL INR 1.10 APTT 23.6 (18.6-31.3) SEC Lactate (0.20-2.00) mmol/L Sodium 128 L (136-145) mmol/L Potassium 4.3 (3.5-5.1) mmol/L Chloride 94 L (98-107) mmol/L Carbon Dioxide 24.9 (21.0-32.0) mmol/L BUN 8 (7.0-18.0) mg/dL Creatinine 0.6 (0.6-1.0) mg/dL Est Cr Clr Drug Dosing 108.13 mL/min Estimated GFR (MDRD) > 60.0 ml/min Glucose 105 (74-106) mg/dL Calcium 8.7 (8.5-10.1) mg/dL Total Bilirubin 0.4 (0.2-1.0) mg/dL AST 125 H (15-37) IU/L ALT 146 H (14-63) IU/L Alkaline Phosphatase 96 (46-116) U/L Total Protein 6.7 (6.4-8.2) g/dL Albumin 3.5 (3.4-5.0) g/dL Globulin 3.2 (2.6-4.0) g/dL Albumin/Globulin Ratio 1.1 (0.9-1.6) Urine Color Urine Appearance Urine pH (5.0-8.0) Ur Specific [place] (1.001-1.035) Urine Protein (NEGATIVE) mg/dL Urine Glucose (UA) (NEGATIVE) mg/dL Urine Ketones (NEGATIVE) mg/dL Urine Occult Blood (NEGATIVE) Urine Nitrite (NEGATIVE) Urine Bilirubin (NEGATIVE) Urine Urobilinogen (<2.0) EU/dL Ur Leukocyte Esterase (NEGATIVE) Urine RBC (0-2/HPF) Urine WBC (0-5/HPF) Ur Epithelial Cells (NONE-FEW) Urine Bacteria (NEGATIVE) Meds: Medications Generic Name Dose Route Start Last Admin Trade Name Freq PRN Reason Stop Dose Admin Cefepime HCl 1 gm/ Premix 50 mls @ 100 mls/hr 02/13/20 13:48 IV 02/13/20 14:17 ONETIME ONE Departure - Departure Time of Disposition: 13:56 Disposition: Admitted As Inpatient 66 Condition: Good Clinical Impression: Neutropenic fever, Rash and nonspecific skin eruption - Discharge Information Forms: ED Department Discharge Sepsis Event Note (ED) - Evaluation Sepsis Screening Result: No Definite Risk - Focused Exam Vital Signs: Vital Signs Temp Pulse Resp BP Pulse Ox 02/13/20 13:49 36.6 C 87 18 100/72 100 02/13/20 11:03 36.4 C 89 18 113/72 99 - My Orders Last 24 Hours: My Active Orders 02/13/20 11:24 Blood Culture x2 Reflex Set [OM.PC] Stat 02/13/20 11:57 CULTURE BLOOD [BC] Stat 02/13/20 12:32 CULTURE BLOOD [BC] Stat 02/13/20 13:48 Cefepime [Maxipime in D5W 1 GM/50 ML] 1 gm Premix Bag 1 bag IV ONETIME 02/13/20 13:49 CORONAVIRUS COVID-19 PCR PHL Stat - Assessment/Plan Last 24 Hours: My Active Orders 02/13/20 11:24 Blood Culture x2 Reflex Set [OM.PC] Stat 02/13/20 11:57 CULTURE BLOOD [BC] Stat 02/13/20 12:32 CULTURE BLOOD [BC] Stat 02/13/20 13:48 Cefepime [Maxipime in D5W 1 GM/50 ML] 1 gm Premix Bag 1 bag IV ONETIME 02/13/20 13:49 CORONAVIRUS COVID-19 PCR PHL Stat
[2020-02-13 13:19] LABS: BLOOD UREA NITROGEN,BUN 8 mg/dL (7.0-18.0); CARBON DIOXIDE,CO2 24.9 mmol/L (21.0-32.0); CHLORIDE,CL 94 mmol/L (98-107); GLUCOSE RANDOM 105 mg/dL (74-106); POTASSIUM,K 4.3 mmol/L (3.5-5.1); SODIUM,NA 128 mmol/L (136-145)
--- NOTE | 2020-02-13 13:45 | CR ---
INDICATION: Fever and cough COMPARISON: February 10, 2020 TECHNIQUE: Single-view chest radiograph has an AP portable upright study FINDINGS: TUBES AND LINES: Left-sided port ending at the junction of the left brachiocephalic vein with the SVC. HEART AND MEDIASTINUM: The heart size is normal. The mediastinal contour appears normal for patient age. LUNGS AND PLEURAL SPACES: The lungs appear normal.There pleural spaces are unremarkable. OSSEOUS STRUCTURES: Age-appropriate appearance. No acute focal finding. IMPRESSION: No evidence of active pulmonary disease. Left port unchanged in position as described. Dictated by Ja Solorzano MD @ Feb 13 2020 1:41PM Signed by Dr. Ja Solorzano @ Feb 13 2020 1:43PM
[2020-02-13] MEDS ORDERED: Cefepime 1 GM in Premix Bag 1 BAG IV ONE ×2 (13:48→15:57)
[2020-02-13] MEDS ORDERED: Ibuprofen 800 MG Tab PO ONE (14:19)
[2020-02-13] MEDS ORDERED: Acetaminophen 500 MG Tab PO ONE (14:42)
[2020-02-13] MEDS ORDERED: Albuterol HFA 18 Gm Inhaler INH PRN (15:51)
[2020-02-13] MEDS ORDERED: Morphine 2 MG/ML SYRINGE IVPUSH PRN (15:56)
--- NOTE | 2020-02-13 16:08 | PCM.HP.2 ---
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 She has been in the ER multiple times in the last week or so with complaints of fever chills and overall not feeling well. On 02/05 she was diagnosed with pneumonia treated with a azithromycin on 02/09 she was noted to have fevers and tachycardia with an elevated lactate she was given fluids and improved and was discharged home both times. Today she presents after reviewing more literature on fevers and chemotherapy. She received chemotherapy and radiation yesterday in our cancer center. She reports some mild nausea and abdominal pain along with diarrhea. Patient reports fevers up to 102 F. She has associated headaches and overall g enerally not feeling well when fevers are elevated. Tylenol and ibuprofen have been helping with this. She reports he took some Imodium last night which did help calm down the diarrhea. She takes CBD chewables to help with nausea and has been eating well. No dysuria or flank pain. She denies any neck pain chest pain or shortness of breath. She denies any sores in her mouth or sore throat. She does reports rash on her trunk face and neck that has extended down onto her legs. This does not itch does not hurt and it started yesterday. No new soaps lotions or other products. No travel. She recently was on azithromycin but has been done without for over a week. No other sick contacts within her home. Port is noted to the left chest. Denies any pain or redness at the site and no drainage. She denies any tobacco use or alcohol use. 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 In the ER white count noted to be leukopenic at 2.53. Hemoglobin 10.2 and platelet count 100,000. INR 1.1 lactic acid 1.5. BMP was significant for hypon atremia at 128 with chloride of 94 BUN 8 creatinine 0.6. Chest x-ray negative UA negative EKG sinus rhythm to sinus tachycardia no arrhythmias or ST segment changes. Blood cultures obtained in the ER. COVID swab negative. CTA of the chest on 02/09 showed possible bibasilar atelectasis. She will be admitted for neutropenic fever and hyponatremia. Oncologist, Dr. Chi joints and legs Pain Score (Numeric/FACES): 5 - Related Data Allergies/Adverse Reactions: Allergies Allergy/AdvReac Type Severity Reaction Status Date / Time No Known Allergies Allergy Verified 02/13/20 11:13 Home Medications: Home Meds Albuterol Sulfate [Proventil Hfa] 2 puff INH Q4H PRN 02/07/17 [History] Budesonide/Formoterol Fumarate [Symbicort 80-4.5 MCG] 2 puff INH DAILY 02/07/17 [History] Carvedilol [Coreg] 12.5 mg PO BIDMEALS 02/07/17 [History] Sertraline [Zoloft] 125 mg PO BEDTIME 02/07/17 [History] Simvastatin [Zocor] 10 mg PO BEDTIME 02/07/17 [History] Tranexamic Acid [Lysteda] 650 mg PO BEDTIME 01/09/20 [History] traZODone HCl [Trazodone HCl] 50 - 150 mg PO BEDTIME PRN 01/09/20 [History] LORazepam [Ativan] 1 mg PO ASDIRECTED 02/05/20 [History] Ondansetron [Zofran] 8 mg PO Q8H PRN 02/05/20 [History] Prochlorperazine [Compazine] 10 mg PO Q6H PRN 02/05/20 [History] Past Medical History HEENT History: Reports: Other (See Below) Other HEENT History: wears glasses Cardiovascular History: Reports: Arrhythmia, High Cholesterol, Hypertension, Other (See Below) Other Cardiovascular History: atrial aneurysm, h/o (HFpEF) heart failure with preserved ejection fraction Respiratory History: Reports: COPD, SOB, Other (See Below) Other Respiratory History: emphysema, hx of hemothorax, 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 Left arm fx at age 11 Neurological History: Reports: TIA, Other (See Below) Other Neuro History: cryptogenic stroke - states "stroke in heart 20 years ago" Psychiatric History: Reports: Anxiety, Depression, Panic Attack, PTSD Endocrine/Metabolic History: Reports: Obesity/BMI 30+ Hematologic History: Reports: Anemia, Blood Transfusion(s) Immunologic History: Reports: None Oncologic (Cancer) History: Reports: Cervix Dermatologic History: Reports: None - Infectious Disease History Infectious Disease History: Reports: Chicken Pox, Mumps - Past Surgical History Head Surgeries/Procedures: Reports: None HEENT Surgical History: Reports: Cataract Surgery, Myringotomy w Tube(s), Tonsillectomy Cardiovascular Surgical History: Reports: None Respiratory Surgical History: Reports: None GI Surgical History: Reports: None Female Surgical History: Reports: Section, Tubal Ligation Other Female Surgeries/Procedures: c/section x2, laparotomy 2 days following last c/section for internal bleeding Endocrine Surgical History: Reports: None Neurological Surgical History: Reports: None Musculoskeletal Surgical History: Reports: None Oncologic Surgical History: Reports: None Other Oncologic Surgeries/Procedures: Port for chemo to left ches Dermatological Surgical History: Reports: None Social & Family History - Family History Family Medical History: Noncontributory HEENT: Reports: None Cardiac: Reports: High Cholesterol, Hypertension, [place] Respiratory: Reports: None GI: Reports: None : Reports: None OBGYN: Reports: Musculoskeletal: Reports: Arthritis, Gout Neurological: Reports: None Psychiatric: Reports: Anxiety, Depression Endocrine/Metabolic: Reports: None Hematologic: Reports: None Immunologic: Reports: None Dermatologic: Reports: None Oncologic: Reports: Lymphoma - Tobacco Use Tobacco Use Status *Q: Former Tobacco User Years of Tobacco use: 35 Used Tobacco, but Quit: Yes Month/Year Tobacco Last Used: 08/2018 - Caffeine Use Caffeine Use: Reports: Energy Drinks, Soda - Recreational Drug Use Recreational Drug Use: Yes Drug Use in Last 12 Months: Yes Recreational Drug Type: Reports: Marijuana/Hashish H&P Review of Systems - Review of Systems: Review Of Systems: See Below General: Reports: Fever, Chills, Malaise, Weakness, Fatigue Pulmonary: Reports: No Symptoms. Denies: Shortness of Breath Cardiovascular: Reports: No Symptoms. Denies: Chest Pain Gastrointestinal: Reports: Abdominal Pain, Diarrhea, Nausea. Denies: Black Stool, Bloody Stool, Vomiting Genitourinary: Reports: No Symptoms. Denies: Dysuria, Frequency Musculoskeletal: Reports: No Symptoms Skin: Reports: Rash (trunk and extremities and face) Psychiatric: Reports: No Symptoms Neurological: Reports: No Symptoms Hematologic/Lymphatic: Reports: No Symptoms Immunologic: Reports: No Symptoms Exam - Exam Exam: See Below - Vital Signs Vital Signs: Last Vital Signs Temp 97.8 F 02/13/20 13:49 Pulse 87 02/13/20 13:49 Resp 18 02/13/20 13:49 BP 100/72 02/13/20 13:49 Pulse Ox 100 02/13/20 13:49 Weight: 95.254 kg - Exam General: Alert, Oriented, Cooperative Neck: Supple Lungs: Clear to Auscultation, Normal Respiratory Effort Cardiovascular: Regular Rate, Regular Rhythm GI/Abdominal Exam: Normal Bowel Sounds, Soft, Tender (RUQ and epigastric) Extremities: Normal Inspection, Normal Range of Motion, Non-Tender, No Pedal Edema Neuro Extensive - Mental Status: Alert, Oriented x3 Neuro Extensive - Motor, Sensory, Reflexes: CN II-XII Intact Psychiatric: Alert, Normal Affect, Normal Mood - Patient Data Lab Results Last 24 hrs: Laboratory Results - last 24 hr 02/13/20 02/13/20 02/13/20 Range/Units 11:48 11:48 11:50 WBC 2.53 L (4.0-11.0) K/uL RBC 3.33 L (4.30-5.90) M/uL Hgb 10.2 L (12.0-16.0) g/dL Hct 31.3 L (36.0-46.0) % MCV 94.0 (80.0-98.0) fL MCH 30.6 (27.0-32.0) pg MCHC 32.6 (31.0-37.0) g/dL RDW Std Deviation 43.6 (28.0-62.0) fl RDW Coeff of Sara 13 (11.0-15.0) % Plt Count 100 L (150-400) K/uL MPV 10.00 (7.40-12.00) fL Neut % (Auto) 90.1 H (48.0-80.0) % Lymph % (Auto) 1.6 L (16.0-40.0) % Bertie % (Auto) 5.9 (0.0-15.0) % Eos % (Auto) 2.4 (0.0-7.0) % Baso % (Auto) 0.0 (0.0-1.5) % Neut # (Auto) 2.3 (1.4-5.7) K/uL Lymph # (Auto) 0.0 L (0.6-2.4) K/uL Bertie # (Auto) 0.2 (0.0-0.8) K/uL Eos # (Auto) 0.1 (0.0-0.7) K/uL Baso # (Auto) 0.0 (0.0-0.1) K/uL Nucleated RBC % 0.0 /100WBC Nucleated RBCs # 0 K/uL INR APTT (18.6-31.3) SEC Lactate 1.5 (0.20-2.00) mmol/L Sodium (136-145) mmol/L Potassium (3.5-5.1) mmol/L Chloride (98-107) mmol/L Carbon Dioxide (21.0-32.0) mmol/L BUN (7.0-18.0) mg/dL Creatinine (0.6-1.0) mg/dL Est Cr Clr Drug Dosing mL/min Estimated GFR (MDRD) ml/min Glucose (74-106) mg/dL Calcium (8.5-10.1) mg/dL Total Bilirubin (0.2-1.0) mg/dL AST (15-37) IU/L ALT (14-63) IU/L Alkaline Phosphatase (46-116) U/L Total Protein (6.4-8.2) g/dL Albumin (3.4-5.0) g/dL Globulin (2.6-4.0) g/dL Albumin/Globulin Ratio (0.9-1.6) Urine Color YELLOW Urine Appearance CLEAR Urine pH 6.0 (5.0-8.0) Ur Specific [place] 1.010 (1.001-1.035) Urine Protein NEGATIVE (NEGATIVE) mg/dL Urine Glucose (UA) NEGATIVE (NEGATIVE) mg/dL Urine Ketones NEGATIVE (NEGATIVE) mg/dL Urine Occult Blood NEGATIVE (NEGATIVE) Urine Nitrite NEGATIVE (NEGATIVE) Urine Bilirubin NEGATIVE (NEGATIVE) Urine Urobilinogen 0.2 (<2.0) EU/dL Ur Leukocyte Esterase NEGATIVE (NEGATIVE) Urine RBC 0-2 (0-2/HPF) Urine WBC 0-2 (0-5/HPF) Ur Epithelial Cells RARE (NONE-FEW) Urine Bacteria NOT SEEN (NEGATIVE) SARS-CoV-2 RNA (NANI) (NEGATIVE) 02/13/20 02/13/20 02/13/20 Range/Units 12:36 12:36 14:00 WBC (4.0-11.0) K/uL RBC (4.30-5.90) M/uL Hgb (12.0-16.0) g/dL Hct (36.0-46.0) % MCV (80.0-98.0) fL MCH (27.0-32.0) pg MCHC (31.0-37.0) g/dL RDW Std Deviation (28.0-62.0) fl RDW Coeff of Sara (11.0-15.0) % Plt Count (150-400) K/uL MPV (7.40-12.00) fL Neut % (Auto) (48.0-80.0) % Lymph % (Auto) (16.0-40.0) % Bertie % (Auto) (0.0-15.0) % Eos % (Auto) (0.0-7.0) % Baso % (Auto) (0.0-1.5) % Neut # (Auto) (1.4-5.7) K/uL Lymph # (Auto) (0.6-2.4) K/uL Bertie # (Auto) (0.0-0.8) K/uL Eos # (Auto) (0.0-0.7) K/uL Baso # (Auto) (0.0-0.1) K/uL Nucleated RBC % /100WBC Nucleated RBCs # K/uL INR 1.10 APTT 23.6 (18.6-31.3) SEC Lactate (0.20-2.00) mmol/L Sodium 128 L (136-145) mmol/L Potassium 4.3 (3.5-5.1) mmol/L Chloride 94 L (98-107) mmol/L Carbon Dioxide 24.9 (21.0-32.0) mmol/L BUN 8 (7.0-18.0) mg/dL Creatinine 0.6 (0.6-1.0) mg/dL Est Cr Clr Drug Dosing 108.13 mL/min Estimated GFR (MDRD) > 60.0 ml/min Glucose 105 (74-106) mg/dL Calcium 8.7 (8.5-10.1) mg/dL Total Bilirubin 0.4 (0.2-1.0) mg/dL AST 125 H (15-37) IU/L ALT 146 H (14-63) IU/L Alkaline Phosphatase 96 (46-116) U/L Total Protein 6.7 (6.4-8.2) g/dL Albumin 3.5 (3.4-5.0) g/dL Globulin 3.2 (2.6-4.0) g/dL Albumin/Globulin Ratio 1.1 (0.9-1.6) Urine Color Urine Appearance Urine pH (5.0-8.0) Ur Specific [place] (1.001-1.035) Urine Protein (NEGATIVE) mg/dL Urine Glucose (UA) (NEGATIVE) mg/dL Urine Ketones (NEGATIVE) mg/dL Urine Occult Blood (NEGATIVE) Urine Nitrite (NEGATIVE) Urine Bilirubin (NEGATIVE) Urine Urobilinogen (<2.0) EU/dL Ur Leukocyte Esterase (NEGATIVE) Urine RBC (0-2/HPF) Urine WBC (0-5/HPF) Ur Epithelial Cells (NONE-FEW) Urine Bacteria (NEGATIVE) SARS-CoV-2 RNA (NANI) NEGATIVE (NEGATIVE) Result Diagrams: 02/13/20 11:48 02/13/20 12:36 [place] Results Last 24 hrs: Microbiology 02/13/20 12:32 Anaerobic Blood Culture - Final Blood - Venous - Lab Draw Sepsis Event Note - Evaluation Sepsis Screening Result: No Definite Risk - Focused Exam Vital Signs: Vital Signs Temp Pulse Resp BP Pulse Ox 02/13/20 13:49 97.8 F 87 18 100/72 100 02/13/20 11:03 97.6 F 89 18 113/72 99 - Problem List (1) Neutropenic fever SNOMED Code(s): 869396128 ICD Code: D70.9 - NEUTROPENIA, UNSPECIFIED; R50.81 - FEVER PRESENTING WITH CONDITIONS CLASSIFIED ELSEWHERE Status: Acute Current Visit: Yes (2) Hyponatremia SNOMED Code(s): 43396994 ICD Code: E87.1 - HYPO-OSMOLALITY AND HYPONATREMIA Status: Acute Current Visit: No (3) Rash and nonspecific skin eruption SNOMED Code(s): 887123667 ICD Code: R21 - RASH AND OTHER NONSPECIFIC SKIN ERUPTION Status: Acute Cu rrent Visit: Yes (4) HTN (hypertension) SNOMED Code(s): 14470751 ICD Code: I10 - ESSENTIAL (PRIMARY) HYPERTENSION Status: Chronic Current Visit: Yes (5) HLD (hyperlipidemia) SNOMED Code(s): 22799407 ICD Code: E78.5 - HYPERLIPIDEMIA, UNSPECIFIED Status: Chronic Current Visit: Yes (6) History of CVA (cerebrovascular accident) SNOMED Code(s): 522837919 ICD Code: Z86.73 - PRSNL HX OF TIA (TIA), AND CEREB INFRC W/O RESID DEFICITS Status: Chronic Current Visit: Yes (7) Cervical cancer Status: Chronic Current Visit: Yes (8) COPD (chronic obstructive pulmonary disease) SNOMED Code(s): 64098977 ICD Code: J44.9 - CHRONIC OBSTRUCTIVE PULMONARY DISEASE, UNSPECIFIED Status: Chronic Current Visit: No Qualifiers: COPD type: COPD with acute exacerbation Qualified Code(s): J44.1 - Chronic obstructive pulmonary disease with (acute) exacerbation (9) Transaminitis SNOMED Code(s): 063713804, 784087110 ICD Code: R74.01 - ELEVATION OF LEVELS OF LIVER TRANSAMINASE LEVELS Status: Acute Current Visit: Yes (10) Thrombocytopenia SNOMED Code(s): 978008870 ICD Code: D69.6 - THROMBOCYTOPENIA, UNSPECIFIED Status: Acute Current Visit: Yes (11) History of tobacco use SNOMED Code(s): 297525650 ICD Code: Z87.891 - PERSONAL HISTORY OF NICOTINE DEPENDENCE Status: Chronic Current Visit: Yes (12) History of alcohol abuse SNOMED Code(s): 280021122 ICD Code: F10.11 - ALCOHOL ABUSE, IN REMISSION Status: Chronic Current Visit: Yes Problem List Initiated/Reviewed/Updated: Yes Orders Last 24hrs: Active Orders 24 hr Category Date Time Status Patient Status [ADT] Routine ADT 02/13/20 13:57 Active Antiembolic Devices [RC] PER UNIT ROUTINE Care 02/13/20 15:57 Active Height and Weight [RC] DAILY Care 02/13/20 15:56 Active Intake and Output [RC] QSHIFT Care 02/13/20 15:56 Active May Shower [RC] ASDIRECTED Care 02/13/20 15:56 Active Oxygen Therapy [RC] PRN Care 02/13/20 15:56 Active RT Post Treatment Assessment [RC] Click to Edit Care 02/13/20 15:54 Active RT Pre-Treatment Assessment [RC] Click to Edit Care 02/13/20 15:54 Active Up With Assistance [RC] ASDIRECTED Care 02/13/20 15:56 Active VTE/DVT Education [RC] PER UNIT ROUTINE Care 02/13/20 15:56 Active Vital Signs [RC] Q4H Care 02/13/20 15:56 Active Clear Liquid Diet [DIET] Diet 02/13/20 Dinner Active Abdomen Pelvis wo Cont [CT] Urgent Exams 02/13/20 15:49 Ordered C DIFFICILE AG/TOXIN W/REFLEX [RM] Urgent Lab 02/13/20 15:50 Ordered CBC WITH AUTO DIFF [HEME] AM Lab 02/14/20 05:11 Ordered COMPREHENSIVE METABOLIC PN,CMP [CHEM] AM Lab 02/14/20 05:11 Ordered CULTURE BLOOD [BC] Stat Lab 02/13/20 11:57 Received CULTURE BLOOD [BC] Stat Lab 02/13/20 12:32 Results HEPATITIS PANEL (4) [REF] Urgent Lab 02/13/20 15:49 Ordered LIPASE [CHEM] Routine Lab 02/13/20 12:39 Received MAGNESIUM [CHEM] AM Lab 02/14/20 05:11 Ordered STOOL CULTURE/SHIGA TOXIN [MREF] Urgent Lab 02/13/20 15:50 Ordered Acetaminophen [TylenoL] Med 02/13/20 15:56 Ordered 650 mg PO Q4H PRN Albuterol [Proventil HFA] Med 02/13/20 15:51 Ordered DOSE gm INH Q4H PRN Budesonide/Formoterol Fumarate [Symbicort 80-4.5 MCG] Med 02/14/20 09:00 Ordered 2 puff INH DAILY Cefepime [Maxipime in D5W 1 GM/50 ML] 1 gm Med 02/13/20 15:57 Ordered Premix Bag 1 bag IV ONETIME Cefepime [Maxipime in D5W 2 GM/50 ML] 2 gm Med 02/13/20 23:00 Ordered Premix Bag 1 bag IV Q8H LORazepam [Ativan] Med 02/13/20 15:51 Ordered 1 mg PO Q6H PRN Morphine Med 02/13/20 15:56 Ordered 2 mg IVPUSH Q2H PRN Ondansetron [Zofran] Med 02/13/20 15:57 Ordered 4 mg IVPUSH Q4H PRN Sertraline [Zoloft] Med 02/13/20 21:00 Ordered 125 mg PO BEDTIME traZODone Med 02/13/20 15:51 Ordered 100 mg PO BEDTIME PRN Blood Culture x2 Reflex Set [OM.PC] Stat Oth 02/13/20 11:24 Ordered Sequential Compression Device [OM.PC] Per Unit Routine Oth 02/13/20 15:56 Ord ered Resuscitation Status Routine Resus Stat 02/13/20 15:56 Ordered Medication Orders Acetaminophen (Tylenol) 650 mg PO Q4H PRN PRN Reason: Pain (Mild 1-3)/fever Albuterol (Proventil Hfa) gm INH Q4H PRN PRN Reason: Wheezing Cefepime HCl 1 gm/ Premix 50 mls @ 100 mls/hr IV ONETIME ONE Stop: 02/13/20 16:26 Cefepime HCl 2 gm/ Premix 50 mls @ 100 mls/hr IV Q8H SAEID Lorazepam (Ativan) 1 mg PO Q6H PRN PRN Reason: Anxiety Morphine Sulfate (Morphine) 2 mg IVPUSH Q2H PRN PRN Reason: Pain (severe 7-10) Non-Formulary Medication (Budesonide/Formoterol Fumarate [Symbicort 80-4.5 Mcg]) 2 puff INH DAILY SAEID Ondansetron HCl (Zofran) 4 mg IVPUSH Q4H PRN PRN Reason: Nausea Sertraline HCl (Zoloft) 125 mg PO BEDTIME SAEID Trazodone HCl (Trazodone) 100 mg PO BEDTIME PRN PRN Reason: Insomnia Assessment/Plan Comment:: This 54-year-old female admitted with neutropenic fever, macular rash, and hyponatremia 1. Neutropenic fever -Blood cultures pending -Having abdominal pain right upper quadrant and epigastric , lipase normal, add on CT abdomen pelvis -We will give another gram of cefepime to equal 2 g total then continue cefepime 2 g every 8 hours for empiric coverage -IV fluids NS 125 overnight -Having diarrhea, will obtain stool cultures -Monitor lab work in the morning. -Monitor rash could be more heat rash due to fevers and chills at home no vesicles or mucous membrane involvement. - Monitor thrombocytopenia 2. Hyponatremia -IV fluids overnight -Recheck in the a.m. 3. Transaminitis -Obtain hepatitis panel - Obtain CT abd/pelvis, consider RUQ US 4. HTN/HLD/history CVA -Monitor blood pressure, hold Coreg for tonight as blood pressure is soft -Hold statin for now as LFTs are elevated -Monitor lab work daily VTE prophylaxis: SCDs, monitor thrombocytopenia Dispo:2-3 days pending improvement
[2020-02-13] MEDS ORDERED: Sodium Chloride 0.9% 10 ML Syringe FLUSH PRN (16:19)
[2020-02-13] MEDS: Sodium Chloride 0.9% 1,000 ML IV SCH (16:54)
--- NOTE | 2020-02-13 17:02 | CT ---
INDICATION: Leukopenia. Pain. Cervical cancer. TECHNIQUE: Volumetric helical scanning of the abdomen and pelvis was performed without contrast material. Coronal and sagittal reconstructions were obtained. COMPARISON: Abdomen/pelvis CT of 12/18/2019. FINDINGS: The liver is normal in size, shape and attenuation. No bile duct dilation is evident. The spleen is within normal limits. The adrenal glands are unremarkable. The pancreas is within normal limits. Both kidneys appear enlarged in comparison to the previous examination. The right kidney is measured at 12.0 x 5.5 x 5.3 cm and the left kidney 9.4 x 6.9 x 5.7 cm. On the previous examination, the right kidney measured 11.2 x 5.5 x 5.1 cm and the left kidney 8.7 x 6.2 x 5.1 cm. A 1 cm left renal cyst is demonstrated along with an adjacent 5 mm hyperdense cyst. No hydronephrosis is evident. No lymphadenopathy is evident. No free fluid is demonstrated. Cervical enlargement is demonstrated and similar to the previous examination. The uterus is unremarkable. No ovarian abnormality is evident. The lung bases are clear. The heart is normal in size. IMPRESSION: 1. Cervical enlargement, similar to the previous examination. No lymphadenopathy evident. 2. Interval mild enlargement of both kidneys of uncertain etiology. No hydronephrosis. Small left renal cysts. Please note that all CT scans at this facility use dose modulation, iterative reconstruction, and/or weight-based dosing when appropriate to reduce radiation dose to as low as reasonably achievable. Dictated by Jam Baltazar MD @ Feb 13 2020 4:40PM Signed by Dr. Jam Baltazar @ Feb 13 2020 5:00PM
[2020-02-13] MEDS: Sertraline 50 MG Tab PO SCH (21:24)
[2020-02-13] MEDS: Ondansetron 4 MG/2 ML SDV IVPUSH PRN (21:25)
[2020-02-13] MEDS: traZODone 50 MG Tab PO PRN (21:25)
[2020-02-13] MEDS: LORazepam 1 MG Tab PO PRN (23:28)
[2020-02-13] MEDS: Cefepime 2 GM in Premix Bag 1 BAG IV SCH (23:29)
[2020-02-14] MEDS: Sodium Chloride 0.9% 1,000 ML IV SCH ×3 (02:04→19:05)
[2020-02-14] MEDS: Cefepime 2 GM in Premix Bag 1 BAG IV SCH ×2 (06:11→15:49)
[2020-02-14] MEDS: LORazepam 1 MG Tab PO PRN (06:16)
[2020-02-14 07:21] LABS: BLOOD UREA NITROGEN,BUN 6 mg/dL (7.0-18.0); CARBON DIOXIDE,CO2 24.7 mmol/L (21.0-32.0); CHLORIDE,CL 101 mmol/L (98-107); GLUCOSE RANDOM 80 mg/dL (74-106); POTASSIUM,K 4.3 mmol/L (3.5-5.1); SODIUM,NA 134 mmol/L (136-145)
[2020-02-14] MEDS ORDERED: Magnesium Sulfate/Water 2 GM/50 ML Premix Bag IV ONE (08:04)
--- NOTE | 2020-02-14 08:04 | PCM.PN ---
- General Info Date of Service: 02/14/20 Admission Dx/Problem (Free Text): Admission Diagnosis/Problem Admission Diagnosis/Problem Fever, unspecified Subjective Update: Doing better today, no fevers over night. No chest pain or SOB. Concerned about radiation scheduling and upcoming procedure in [place]. Denies bleeding. Rash to legs, not itchy and not painful. Functional Status: Reports: Pain Controlled, Tolerating Diet, Ambulating, Ur inating - Review of Systems General: Reports: No Symptoms. Denies: Fatigue, Malaise HEENT: Reports: No Symptoms. Denies: Headaches, Sore Throat Pulmonary: Reports: No Symptoms. Denies: Shortness of Breath Cardiovascular: Reports: No Symptoms. Denies: Chest Pain Gastrointestinal: Reports: Diarrhea. Denies: Abdominal Pain, Nausea, Vomiting Genitourinary: Reports: No Symptoms. Denies: Dysuria, Frequency, Burning Musculoskeletal: Reports: No Symptoms Skin: Reports: Rash Neurological: Reports: No Symptoms Psychiatric: Reports: No Symptoms - Patient Data Vitals - Most Recent: Last Vital Signs Temp 98.7 F 02/14/20 05:00 Pulse 89 02/14/20 05:00 Resp 16 02/14/20 05:00 BP 115/69 02/14/20 05:00 Pulse Ox 95 02/14/20 05:00 Weight - Most Recent: 91.8 kg I&O - Last 24 Hours: Intake & Output 02/13/20 02/14/20 02/14/20 22:59 06:59 14:59 Intake Total 2692 Output Total 2350 Balance 342 Lab Results Last 24 Hours: Laboratory Results - last 24 hr 02/13/20 02/13/20 02/13/20 Range/Units 11:48 11:48 11:50 WBC 2.53 L (4.0-11.0) K/uL RBC 3.33 L (4.30-5.90) M/uL Hgb 10.2 L (12.0-16.0) g/dL Hct 31.3 L (36.0-46.0) % MCV 94.0 (80.0-98.0) fL MCH 30.6 (27.0-32.0) pg MCHC 32.6 (31.0-37.0) g/dL RDW Std Deviation 43.6 (28.0-62.0) fl RDW Coeff of Sara 13 (11.0-15.0) % Plt Count 100 L (150-400) K/uL MPV 10.00 (7.40-12.00) fL Neut % (Auto) 90.1 H (48.0-80.0) % Lymph % (Auto) 1.6 L (16.0-40.0) % Atkinson % (Auto) 5.9 (0.0-15.0) % Eos % (Auto) 2.4 (0.0-7.0) % Baso % (Auto) 0.0 (0.0-1.5) % Neut # (Auto) 2.3 (1.4-5.7) K/uL Lymph # (Auto) 0.0 L (0.6-2.4) K/uL Atkinson # (Auto) 0.2 (0.0-0.8) K/uL Eos # (Auto) 0.1 (0.0-0.7) K/uL Baso # (Auto) 0.0 (0.0-0.1) K/uL Add Manual Diff Neutrophils % (Manual) (48.0-80.0) % Lymphocytes % (Manual) (16.0-40.0) % Monocytes % (Manual) (0.0-15.0) % Eosinophils % (Manual) (0.0-7.0) % Nucleated RBC % 0.0 /100WBC Absolute Seg Neuts (1.4-5.7) Lymphocytes # (Manual) (0.6-2.4) Monocytes # (Manual) (0.0-0.8) Eosinophils # (Manual) (0.0-0.7) Nucleated RBCs # 0 K/uL INR APTT (18.6-31.3) SEC Lactate 1.5 (0.20-2.00) mmol/L Sodium (136-145) mmol/L Potassium (3.5-5.1) mmol/L Chloride (98-107) mmol/L Carbon Dioxide (21.0-32.0) mmol/L BUN (7.0-18.0) mg/dL Creatinine (0.6-1.0) mg/dL Est Cr Clr Drug Dosing mL/min Estimated GFR (MDRD) ml/min Glucose (74-106) mg/dL Calcium (8.5-10.1) mg/dL Magnesium (1.8-2.4) mg/dL Total Bilirubin (0.2-1.0) mg/dL AST (15-37) IU/L ALT (14-63) IU/L Alkaline Phosphatase (46-116) U/L Total Protein (6.4-8.2) g/dL Albumin (3.4-5.0) g/dL Globulin (2.6-4.0) g/dL Albumin/Globulin Ratio (0.9-1.6) Lipase (73-393) U/L Urine Color YELLOW Urine Appearance CLEAR Urine pH 6.0 (5.0-8.0) Ur Specific Grace 1.010 (1.001-1.035) Urine Protein NEGATIVE (NEGATIVE) mg/dL Urine Glucose (UA) NEGATIVE (NEGATIVE) mg/dL Urine Ketones NEGATIVE (NEGATIVE) mg/dL Urine Occult Blood NEGATIVE (NEGATIVE) Urine Nitrite NEGATIVE (NEGATIVE) Urine Bilirubin NEGATIVE (NEGATIVE) Urine Urobilinogen 0.2 (<2.0) EU/dL Ur Leukocyte Esterase NEGATIVE (NEGATIVE) Urine RBC 0-2 (0-2/HPF) Urine WBC 0-2 (0-5/HPF) Ur Epithelial Cells RARE (NONE-FEW) Urine Bacteria NOT SEEN (NEGATIVE) SARS-CoV-2 RNA (NANI) (NEGATIVE) 02/13/20 02/13/20 02/13/20 Range/Units 12:36 12:36 12:39 WBC (4.0-11.0) K/uL RBC (4.30-5.90) M/uL Hgb (12.0-16.0) g/dL Hct (36.0-46.0) % MCV (80.0-98.0) fL MCH (27.0-32.0) pg MCHC (31.0-37.0) g/dL RDW Std Deviation (28.0-62.0) fl RDW Coeff of Sara (11.0-15.0) % Plt Count (150-400) K/uL MPV (7.40-12.00) fL Neut % (Auto) (48.0-80.0) % Lymph % (Auto) (16.0-40.0) % Atkinson % (Auto) (0.0-15.0) % Eos % (Auto) (0.0-7.0) % Baso % (Auto) (0.0-1.5) % Neut # (Auto) (1.4-5.7) K/uL Lymph # (Auto) (0.6-2.4) K/uL Atkinson # (Auto) (0.0-0.8) K/uL Eos # (Auto) (0.0-0.7) K/uL Baso # (Auto) (0.0-0.1) K/uL Add Manual Diff Neutrophils % (Manual) (48.0-80.0) % Lymphocytes % (Manual) (16.0-40.0) % Monocytes % (Manual) (0.0-15.0) % Eosinophils % (Manual) (0.0-7.0) % Nucleated RBC % /100WBC Absolute Seg Neuts (1.4-5.7) Lymphocytes # (Manual) (0.6-2.4) Monocytes # (Manual) (0.0-0.8) Eosinophils # (Manual) (0.0-0.7) Nucleated RBCs # K/uL INR 1.10 APTT 23.6 (18.6-31.3) SEC Lactate (0.20-2.00) mmol/L Sodium 128 L (136-145) mmol/L Potassium 4.3 (3.5-5.1) mmol/L Chloride 94 L (98-107) mmol/L Carbon Dioxide 24.9 (21.0-32.0) mmol/L BUN 8 (7.0-18.0) mg/dL Creatinine 0.6 (0.6-1.0) mg/dL Est Cr Clr Drug Dosing 108.13 mL/min Estimated GFR (MDRD) > 60.0 ml/min Glucose 105 (74-106) mg/dL Calcium 8.7 (8.5-10.1) mg/dL Magnesium (1.8-2.4) mg/dL Total Bilirubin 0.4 (0.2-1.0) mg/dL AST 125 H (15-37) IU/L ALT 146 H (14-63) IU/L Alkaline Phosphatase 96 (46-116) U/L Total Protein 6.7 (6.4-8.2) g/dL Albumin 3.5 (3.4-5.0) g/dL Globulin 3.2 (2.6-4.0) g/dL Albumin/Globulin Ratio 1.1 (0.9-1.6) Lipase 180 (73-393) U/L Urine Color Urine Appearance Urine pH (5.0-8.0) Ur Specific Grace (1.001-1.035) Urine Protein (NEGATIVE) mg/dL Urine Glucose (UA) (NEGATIVE) mg/dL Urine Ketones (NEGATIVE) mg/dL Urine Occult Blood (NEGATIVE) Urine Nitrite (NEGATIVE) Urine Bilirubin (NEGATIVE) Urine Urobilinogen (<2.0) EU/dL Ur Leukocyte Esterase (NEGATIVE) Urine RBC (0-2/HPF) Urine WBC (0-5/HPF) Ur Epithelial Cells (NONE-FEW) Urine Bacteria (NEGATIVE) SARS-CoV-2 RNA (NANI) (NEGATIVE) 02/13/20 02/14/20 02/14/20 Range/Units 14:00 06:09 06:09 WBC 1.30 L (4.0-11.0) K/uL RBC 3.05 L (4.30-5.90) M/uL Hgb 9.4 L (12.0-16.0) g/dL Hct 28.9 L (36.0-46.0) % MCV 94.8 (80.0-98.0) fL MCH 30.8 (27.0-32.0) pg MCHC 32.5 (31.0-37.0) g/dL RDW Std Deviation 44.5 (28.0-62.0) fl RDW Coeff of Sara 13 (11.0-15.0) % Plt Count 69 L (150-400) K/uL MPV 9.60 (7.40-12.00) fL Neut % (Auto) (48.0-80.0) % Lymph % (Auto) (16.0-40.0) % Atkinson % (Auto) (0.0-15.0) % Eos % (Auto) (0.0-7.0) % Baso % (Auto) (0.0-1.5) % Neut # (Auto) (1.4-5.7) K/uL Lymph # (Auto) (0.6-2.4) K/uL Atkinson # (Auto) (0.0-0.8) K/uL Eos # (Auto) (0.0-0.7) K/uL Baso # (Auto) (0.0-0.1) K/uL Add Manual Diff YES Neutrophils % (Manual) 72 (48.0-80.0) % Lymphocytes % (Manual) 7 L (16.0-40.0) % Monocytes % (Manual) 12 (0.0-15.0) % Eosinophils % (Manual) 9 H (0.0-7.0) % Nucleated RBC % 0.0 /100WBC Absolute Seg Neuts 0.9 L (1.4-5.7) Lymphocytes # (Manual) 0.1 L (0.6-2.4) Monocytes # (Manual) 0.2 (0.0-0.8) Eosinophils # (Manual) 0.1 (0.0-0.7) Nucleated RBCs # 0 K/uL INR APTT (18.6-31.3) SEC Lactate (0.20-2.00) mmol/L Sodium 134 L (136-145) mmol/L Potassium 4.3 (3.5-5.1) mmol/L Chloride 101 (98-107) mmol/L Carbon Dioxide 24.7 (21.0-32.0) mmol/L BUN 6 L (7.0-18.0) mg/dL Creatinine 0.6 (0.6-1.0) mg/dL Est Cr Clr Drug Dosing 108.13 mL/min Estimated GFR (MDRD) > 60.0 ml/min Glucose 80 (74-106) mg/dL Calcium 8.5 (8.5-10.1) mg/dL Magnesium 1.7 L (1.8-2.4) mg/dL Total Bilirubin 0.2 (0.2-1.0) mg/dL AST 132 H (15-37) IU/L ALT 174 H (14-63) IU/L Alkaline Phosphatase 112 (46-116) U/L Total Protein 6.3 L (6.4-8.2) g/dL Albumin 3.2 L (3.4-5.0) g/dL Globulin 3.1 (2.6-4.0) g/dL Albumin/Globulin Ratio 1.0 (0.9-1.6) Lipase (73-393) U/L Urine Color Urine Appearance Urine pH (5.0-8.0) Ur Specific Grace (1.001-1.035) Urine Protein (NEGATIVE) mg/dL Urine Glucose (UA) (NEGATIVE) mg/dL Urine Ketones (NEGATIVE) mg/dL Urine Occult Blood (NEGATIVE) Urine Nitrite (NEGATIVE) Urine Bilirubin (NEGATIVE) Urine Urobilinogen (<2.0) EU/dL Ur Leukocyte Esterase (NEGATIVE) Urine RBC (0-2/HPF) Urine WBC (0-5/HPF) Ur Epithelial Cells (NONE-FEW) Urine Bacteria (NEGATIVE) SARS-CoV-2 RNA (NANI) NEGATIVE (NEGATIVE) [place] Results Last 24 Hours: Microbiology 02/13/20 12:32 Anaerobic Blood Culture - Final Blood - Venous - Lab Draw Med Orders - Current: Current Medications Acetaminophen (Tylenol) 650 mg PO Q4H PRN PRN Reason: Pain (Mild 1-3)/fever Albuterol (Ventolin Hfa) 0 gm INH Q4HRRT PRN PRN Reason: Wheezing Cefepime HCl 2 gm/ Premix 50 mls @ 100 mls/hr IV Q8H [facility] Last Admin: 02/14/20 06:11 Dose: 100 mls/hr Documented by: Sodium Chloride (Normal Saline) 1,000 mls @ 125 mls/hr IV Q8H [facility] Last Admin: 02/14/20 02:04 Dose: 125 mls/hr Documented by: Lorazepam (Ativan) 1 mg PO Q6H PRN PRN Reason: Anxiety Last Admin: 02/14/20 06:16 Dose: 1 mg Documented by: Magnesium Sulfate (Magnesium Sulfate In Water Premix) 2 gm IV ONETIME ONE Stop: 02/14/20 08:05 Morphine Sulfate (Morphine) 2 mg IVPUSH Q2H PRN PRN Reason: Pain (severe 7-10) Ondansetron HCl (Zofran) 4 mg IVPUSH Q4H PRN PRN Reason: Nausea Last Admin: 02/13/20 21:25 Dose: 4 mg Documented by: Budesonide/Formoterol Fumarate [Symbicort 80-4.5 Mcg] [address] [facility] Sertraline HCl (Zoloft) 125 mg PO BEDTIME [facility] Last Admin: 02/13/20 21:24 Dose: 125 mg Documented by: Sodium Chloride (Saline Flush) 10 ml FLUSH ASDIRECTED PRN PRN Reason: Keep Vein Open Trazodone HCl (Trazodone) 100 mg PO BEDTIME PRN PRN Reason: Insomnia Last Admin: 02/13/20 21:25 Dose: 100 mg Documented by: Discontinued Medications Acetaminophen (Tylenol Extra Strength) 1,000 mg PO ONETIME ONE Stop: 02/13/20 14:43 Last Admin: 02/13/20 14:52 Dose: 1,000 mg Documented by: Cefepime HCl 1 gm/ Premix 50 mls @ 100 mls/hr IV ONETIME ONE Stop: 02/13/20 14:17 Last Admin: 02/13/20 13:59 Dose: 100 mls/hr Documented by: Cefepime HCl 1 gm/ Premix 50 mls @ 100 mls/hr IV ONETIME ONE Stop: 02/13/20 16:26 Last Admin: 02/13/20 16:54 Dose: 100 mls/hr Documented by: Ibuprofen (Motrin) 800 mg PO ONETIME ONE Stop: 02/13/20 14:20 Last Admin: 02/13/20 14:42 Dose: Not Given Documented by: - Exam General: Alert, Oriented, Cooperative, No Acute Distress Lungs: Clear to Auscultation, Normal Respiratory Effort Cardiovascular: Regular Rate, Regular Rhythm GI/Abdominal Exam: Normal Bowel Sounds, Soft, Non-Tender Extremities: Normal Inspection, Normal Range of Motion, Non-Tender, No Pedal Edema Skin: Rash (petechial rash has now developed where macular rash was yesterday, more pronounced on legs, but noted on trunk as well.) Neurological: No New Focal Deficit Psy/Mental Status: Alert, Normal Affect, Normal Mood Sepsis Event Note - Evaluation Sepsis Screening Result: No Definite Risk - Focused Exam Vital Signs: Vital Signs Temp Pulse Resp BP Pulse Ox 02/14/20 05:00 98.7 F 89 16 115/69 95 02/13/20 23:53 98 F 88 17 125/73 97 - Problem List & Annotations (1) Neutropenic fever SNOMED Code(s): 809653960 Code(s): D70.9 - NEUTROPENIA, UNSPECIFIED; R50.81 - FEVER PRESENTING WITH CONDITIONS CLASSIFIED ELSEWHERE Status: Acute Current Visit: Yes (2) Hyponatremia SNOMED Code(s): 22493663 Code(s): E87.1 - HYPO-OSMOLALITY AND HYPONATREMIA Status: Acute Current Visit: No (3) Rash and nonspecific skin eruption SNOMED Code(s): 446404753 Code(s): R21 - RASH AND OTHER NONSPECIFIC SKIN ERUPTION Status: Acute Current Visit: Yes (4) HTN (hypertension) SNOMED Code(s): 09185689 Code(s): I10 - ESSENTIAL (PRIMARY) HYPERTENSION Status: Chronic Current Visit: Yes (5) HLD (hyperlipidemia) SNOMED Code(s): 25239887 Code(s): E78.5 - HYPERLIPIDEMIA, UNSPECIFIED Status: Chronic Current Visit: Yes (6) History of CVA (cerebrovascular accident) SNOMED Code(s): 574684947 Code(s): Z86.73 - PRSNL HX OF TIA (TIA), AND CEREB INFRC W/O RESID DEFICITS Status: Chronic Current Visit: Yes (7) Cervical cancer Status: Chronic Current Visit: Yes (8) COPD (chronic obstructive pulmonary disease) SNOMED Code(s): 40041169 Code(s): J44.9 - CHRONIC OBSTRUCTIVE PULMONARY DISEASE, UNSPECIFIED Status: Chronic Current Visit: No Qualifiers: COPD type: COPD with acute exacerbation Qualified Code(s): J44.1 - Chronic obstructive pulmonary disease with (acute) exacerbation (9) Transaminitis SNOMED Code(s): 722216806, 254989514 Code(s): R74.01 - ELEVATION OF LEVELS OF LIVER TRANSAMINASE LEVELS Status: Acute Current Visit: Yes (10) Thrombocytopenia SNOMED Code(s): 397454806 Code(s): D69.6 - THROMBOCYTOPENIA, UNSPECIFIED Status: Acute Current Visit: Yes (11) History of tobacco use SNOMED Code(s): 059028048 Code(s): Z87.891 - PERSONAL HISTORY OF NICOTINE DEPENDENCE Status: Chronic Current Visit: Yes (12) History of alcohol abuse SNOMED Code(s): 201371978 Code(s): F10.11 - ALCOHOL ABUSE, IN REMISSION Status: Chronic Current Visit: Yes - Problem List Review Problem List Initiated/Reviewed/Updated: Yes - My Orders Last 24 Hours: My Active Orders 02/13/20 12:36 HEPATITIS PANEL (4) [REF] Urgent 02/13/20 15:51 Albuterol [Ventolin HFA] 0 gm INH Q4HRRT PRN LORazepam [Ativan] 1 mg PO Q6H PRN traZODone 100 mg PO BEDTIME PRN 02/13/20 15:54 RT Post Treatment Assessment [RC] Click to Edit RT Pre-Treatment Assessment [RC] Click to Edit 02/13/20 15:56 Height and Weight [RC] DAILY Intake and Output [RC] Q12H May Shower [RC] ASDIRECTED Oxygen Therapy [RC] PRN Up With Assistance [RC] DAILY VTE/DVT Education [RC] PER UNIT ROUTINE Vital Signs [RC] Q4H Acetaminophen [TylenoL] 650 mg PO Q4H PRN Morphine 2 mg IVPUSH Q2H PRN Sequential Compression Device [OM.PC] Per Unit Routine Resuscitation Status Routine 02/13/20 15:57 Antiembolic Devices [RC] PER UNIT ROUTINE Ondansetron [Zofran] 4 mg IVPUSH Q4H PRN 02/13/20 Dinner Clear Liquid Diet [DIET] 02/13/20 16:19 Sodium Chloride 0.9% [Saline Flush] 10 ml FLUSH ASDIRECTED PRN 02/13/20 16:30 Sodium Chloride 0.9% [Normal Saline] 1,000 ml IV Q8H 02/13/20 21:00 Sertraline [Zoloft] 125 mg PO BEDTIME 02/13/20 23:00 Cefepime [Maxipime in D5W 2 GM/50 ML] 2 gm Premix Bag 1 bag IV Q8H 02/14/20 06:50 C DIFFICILE AG/TOXIN W/REFLEX [RM] Urgent STOOL CULTURE/SHIGA TOXIN [MREF] Urgent 02/14/20 08:04 Magnesium Sulfate/Water [Magnesium Sulfate in Water Premix] 2 gm IV ONETIME ONE 02/14/20 09:00 Patient's Own Medication [Ptom] 2 each INH DAILY - Plan Plan:: This 54-year-old female admitted with neutropenic fever, macular rash, and hyponatremia 1. Neutropenic fever -Blood cultures pending - CT abdomen pelvis negative for infectious process. -Continue Cefepime 2 g every 8 hours for empiric coverage - IV fluids NS 125 - Having diarrhea, Cdiff negative. Will start Imodium. - Monitor lab work in the morning. - ANC 1000 today - Neutropenic precautions, including diet 2. Thrombocytopenia - petechial rash developed. - No acute bleeding - Will order 1 unit platelets and monitor for bleeding. 3. Hyponatremia -resolved. 4. Transaminitis - Obtain hepatitis panel - No findings on CT, obtain RUQ - Monitor 5. HTN/HLD/history CVA -BP improved. Restart Coreg -Hold statin for now as LFTs are elevated -Monitor lab work daily VTE prophylaxis: SCDs, monitor thrombocytopenia Dispo:2-3 days pending improvement
[2020-02-14] MEDS ORDERED: Magnesium Sulfate/Water 2 GM/50 ML BAG IV ONE (08:15)
[2020-02-14] MEDS: BUDESONIDE INH SCH ×2 (09:37→16:55)
[2020-02-14] MEDS: FORMOTEROL FUMARATE INH SCH ×2 (09:37→16:55)
[2020-02-14] MEDS: Carvedilol 6.25 MG Tab PO SCH ×4 (10:35→19:06)
[2020-02-14] MEDS: TRANEXAMIC ACID 650 MG PO SCH ×2 (10:55→21:16)
[2020-02-14] MEDS ORDERED: Loperamide 2 MG Cap PO PRN (10:57)
[2020-02-14] MEDS: Acetaminophen 325 MG Tab PO PRN (11:30)
[2020-02-14] MEDS: Ondansetron 4 MG/2 ML SDV IVPUSH PRN (16:52)
--- NOTE | 2020-02-14 20:47 | US ---
INDICATION: Transaminitis TECHNIQUE: Ultrasound abdomen limited. Sonographic images of the right upper quadrant were obtained using calvo-scale and color Doppler images. COMPARISON: None FINDINGS: Liver: Minimal increased echogenicity without focal lesion. Gallbladder: No stones or sludge. Normal wall thickness. No pericholecystic fluid. Common bile duct: 2 mm. Pancreas: Partially obscured by bowel gas without discrete lesion. Right kidney: Normal in size. Normal echotexture and cortex. No masses, stones, or hydronephrosis. Vasculature: Proximal abdominal aorta and IVC are normal. IMPRESSION: 1. No evidence of cholelithiasis or cholecystitis. 2. Minimal fatty infiltration of the liver. Dictated by Michael Andrew MD @ Feb 14 2020 8:41PM Signed by Dr. Michael Andrew @ Feb 14 2020 8:45PM
[2020-02-14] MEDS ORDERED: Non-Formulary Medication 1 Each ONE (21:00)
[2020-02-14] MEDS ORDERED: TRANEXAMIC ACID 650 MG PO SCH (21:00)
[2020-02-14] MEDS: Sertraline 50 MG Tab PO SCH (21:18)
[2020-02-14] MEDS: traZODone 50 MG Tab PO PRN (21:25)
[2020-02-15] MEDS: Sodium Chloride 0.9% 1,000 ML IV SCH ×3 (03:41→16:12)
[2020-02-15] MEDS: Acetaminophen 325 MG Tab PO PRN ×2 (07:05→18:44)
[2020-02-15] MEDS: Carvedilol 6.25 MG Tab PO SCH ×2 (07:40→18:39)
[2020-02-15] MEDS: Cefepime 2 GM in Premix Bag 1 BAG IV SCH ×5 (07:41→23:08)
[2020-02-15 09:58] LABS: BLOOD UREA NITROGEN,BUN 6 mg/dL (7.0-18.0); CARBON DIOXIDE,CO2 25.6 mmol/L (21.0-32.0); CHLORIDE,CL 97 mmol/L (98-107); GLUCOSE RANDOM 108 mg/dL (74-106); POTASSIUM,K 4.8 mmol/L (3.5-5.1); SODIUM,NA 130 mmol/L (136-145)
[2020-02-15] MEDS: FORMOTEROL FUMARATE INH SCH (10:09)
[2020-02-15] MEDS: BUDESONIDE INH SCH (10:09)
[2020-02-15] MEDS: LORazepam 1 MG Tab PO PRN ×2 (10:15→20:06)
[2020-02-15] MEDS ORDERED: Magnesium Sulfate/Water 4 GM in Premix Bag 1 BAG IV ONE (10:18)
--- NOTE | 2020-02-15 11:44 | PCM.PN ---
- General Info Date of Service: 02/15/20 Subjective Update: Doing better today, no fevers over night. No chest pain or SOB. Denies bleeding. Rash to legs, slighly itchy and not painful. - Review of Systems General: Denies: Fever, Weakness Pulmonary: Denies: Shortness of Breath, Pleuritic Chest Pain Cardiovascular: Denies: Chest Pain, Palpitations, Dyspnea on Exertion Gastrointestinal: Denies: Abdominal Pain, Constipation, Decreased Appetite Genitourinary: Denies: Dysuria, Frequency, Burning Musculoskeletal: Denies: Neck Pain, Shoulder Pain, Arm Pain Skin: Denies: Cyanosis, Jaundice, Mottled - Patient Data Vitals - Most Recent: Last Vital Signs Temp 36.4 C 02/15/20 08:00 Pulse 76 02/15/20 08:00 Resp 14 02/15/20 08:00 BP 143/93 H 02/15/20 08:00 Pulse Ox 96 02/15/20 08:00 Weight - Most Recent: 90.435 kg I&O - Last 24 Hours: Intake & Output 02/14/20 02/15/20 02/15/20 22:59 06:59 14:59 Intake Total 1680 2100 Output Total 2400 3400 Balance -720 -1300 Lab Results Last 24 Hours: Laboratory Results - last 24 hr 02/14/20 02/15/20 02/15/20 Range/Units 10:32 09:00 09:00 WBC 0.80 L (4.0-11.0) K/uL RBC 3.30 L (4.30-5.90) M/uL Hgb 10.3 L (12.0-16.0) g/dL Hct 30.8 L (36.0-46.0) % MCV 93.3 (80.0-98.0) fL MCH 31.2 (27.0-32.0) pg MCHC 33.4 (31.0-37.0) g/dL RDW Std Deviation 42.9 (28.0-62.0) fl RDW Coeff of Sara 13 (11.0-15.0) % Plt Count 42 L (150-400) K/uL MPV 10.40 (7.40-12.00) fL Add Manual Diff YES Neutrophils % (Manual) 59 (48.0-80.0) % Band Neutrophils % 16 % Lymphocytes % (Manual) 9 L (16.0-40.0) % Monocytes % (Manual) 8 (0.0-15.0) % Eosinophils % (Manual) 7 (0.0-7.0) % Metamyelocytes % 1 % Nucleated RBC % 0.0 /100WBC Absolute Seg Neuts 0.5 L (1.4-5.7) Band Neutrophils # 0.1 Lymphocytes # (Manual) 0.1 L (0.6-2.4) Monocytes # (Manual) 0.1 (0.0-0.8) Eosinophils # (Manual) 0.1 (0.0-0.7) Absolute Metamyelocyte 0 Nucleated RBCs # 0 K/uL Sodium 130 L (136-145) mmol/L Potassium 4.8 (3.5-5.1) mmol/L Chloride 97 L (98-107) mmol/L Carbon Dioxide 25.6 (21.0-32.0) mmol/L BUN 6 L (7.0-18.0) mg/dL Creatinine 0.6 (0.6-1.0) mg/dL Est Cr Clr Drug Dosing 108.13 mL/min Estimated GFR (MDRD) > 60.0 ml/min Glucose 108 H (74-106) mg/dL Calcium 8.8 (8.5-10.1) mg/dL Magnesium 1.6 L (1.8-2.4) mg/dL Total Bilirubin 0.2 (0.2-1.0) mg/dL AST 131 H (15-37) IU/L ALT 207 H (14-63) IU/L Alkaline Phosphatase 174 H (46-116) U/L Total Protein 7.1 (6.4-8.2) g/dL Albumin 3.7 (3.4-5.0) g/dL Globulin 3.4 (2.6-4.0) g/dL Albumin/Globulin Ratio 1.1 (0.9-1.6) Blood Type B POSITIVE Antibody Screen NEGATIVE [place] Results Last 24 Hours: Microbiology 02/14/20 06:50 Shiga Toxin I & II - Final Stool / Feces 02/13/20 12:32 Aerobic Blood Culture - Preliminary Blood - Venous - Lab Draw NO GROWTH AFTER 1 DAY Anaerobic Blood Culture - Final 02/13/20 11:57 Aerobic Blood Culture - Preliminary Blood - Venous NO GROWTH AFTER 1 DAY Anaerobic Blood Culture - Preliminary NO GROWTH AFTER 1 DAY 02/14/20 06:50 C. difficile Antigen & Toxins A,B - Final Stool / Feces Med Orders - Current: Current Medications Acetaminophen (Tylenol) 650 mg PO Q4H PRN PRN Reason: Pain (Mild 1-3)/fever Last Admin: 02/15/20 07:05 Dose: 650 mg Documented by: Albuterol (Ventolin Hfa) 0 gm INH Q4HRRT PRN PRN Reason: Wheezing Carvedilol (Coreg) 12.5 mg PO Q12H [facility] Last Admin: 02/15/20 07:40 Dose: 12.5 mg Documented by: Cefepime HCl 2 gm/ Premix 50 mls @ 100 mls/hr IV Q8H [facility] Last Admin: 02/15/20 07:41 Dose: 100 mls/hr Documented by: Sodium Chloride (Normal Saline) 1,000 mls @ 125 mls/hr IV Q8H [facility] Last Admin: 02/15/20 11:28 Dose: Not Given Documented by: Magnesium Sulfate 4 gm/ Premix 100 mls @ 33.333 mls/hr IV ONETIME ONE Stop: 02/15/20 13:17 Last Admin: 02/15/20 10:33 Dose: 33.333 mls/hr Documented by: Loperamide HCl (Imodium) 2 mg PO ASDIRECTED PRN PRN Reason: Diarrhea Last Admin: 02/14/20 16:00 Dose: 2 mg Documented by: Lorazepam (Ativan) 1 mg PO Q6H PRN PRN Reason: Anxiety Last Admin: 02/15/20 10:15 Dose: 1 mg Documented by: Morphine Sulfate (Morphine) 2 mg IVPUSH Q2H PRN PRN Reason: Pain (severe 7-10) Ondansetron HCl (Zofran) 4 mg IVPUSH Q4H PRN PRN Reason: Nausea Last Admin: 02/14/20 16:52 Dose: 4 mg Documented by: Budesonide/Formoterol Fumarate [Symbicort 80-4.5 Mcg] 2 each INH DAILY [facility] Last Admin: 02/15/20 10:09 Dose: Not Given Documented by: Tranexamic Acid [ (Lysteda] 650 Mg) 1 each PO BEDTIME [facility] Last Admin: 02/14/20 21:16 Dose: Not Given Documented by: Sertraline HCl (Zoloft) 125 mg PO BEDTIME [facility] Last Admin: 02/14/20 21:18 Dose: 125 mg Documented by: Sodium Chloride (Saline Flush) 10 ml FLUSH ASDIRECTED PRN PRN Reason: Keep Vein Open Trazodone HCl (Trazodone) 100 mg PO BEDTIME PRN PRN Reason: Insomnia Last Admin: 02/14/20 21:25 Dose: 100 mg Documented by: Discontinued Medications Acetaminophen (Tylenol Extra Strength) 1,000 mg PO ONETIME ONE Stop: 02/13/20 14:43 Last Admin: 02/13/20 14:52 Dose: 1,000 mg Documented by: Carvedilol (Coreg) 12.5 mg PO BIDMEALS [facility] Last Admin: 02/14/20 16:03 Dose: Not Given Documented by: Cefepime HCl 1 gm/ Premix 50 mls @ 100 mls/hr IV ONETIME ONE Stop: 02/13/20 14:17 Last Admin: 02/13/20 13:59 Dose: 100 mls/hr Documented by: Cefepime HCl 1 gm/ Premix 50 mls @ 100 mls/hr IV ONETIME ONE Stop: 02/13/20 16:26 Last Admin: 02/13/20 16:54 Dose: 100 mls/hr Documented by: Magnesium Sulfate (Magnesium Sulfate In Water Premix) 2 gm in 50 mls @ 50 mls/hr IV ONETIME ONE Stop: 02/14/20 09:14 Last Admin: 02/14/20 09:34 Dose: 50 mls/hr Documented by: Ibuprofen (Motrin) 800 mg PO ONETIME ONE Stop: 02/13/20 14:20 Last Admin: 02/13/20 14:42 Dose: Not Given Documented by: Non-Formulary Medication (Tranexamic Acid [Lysteda]) 650 mg PO BEDTIME [facility] Non-Formulary Medication (Nf Drug) 1 each .ROUTE .STK-MED ONE Stop: 02/14/20 21:01 - Exam General: Alert, Oriented Neck: Supple, Trachea Midline Lungs: Clear to Auscultation, Normal Respiratory Effort Cardiovascular: Regular Rate, Regular Rhythm GI/Abdominal Exam: Normal Bowel Sounds, Soft, Non-Tender Sepsis Event Note - Evaluation Sepsis Screening Result: No Definite Risk - Focused Exam Vital Signs: Vital Signs Temp Pulse Pulse Resp BP BP Pulse Ox 02/15/20 08:00 36.4 C 76 14 143/93 H 96 02/15/20 07:40 74 143/93 H 02/15/20 03:53 35.9 C L 70 14 109/67 93 L 02/15/20 00:00 36.6 C 71 16 90/50 L 94 L - Problem List & Annotations (1) Neutropenic fever SNOMED Code(s): 632692304 Code(s): D70.9 - NEUTROPENIA, UNSPECIFIED; R50.81 - FEVER PRESENTING WITH CONDITIONS CLASSIFIED ELSEWHERE Status: Acute Current Visit: Yes (2) Rash and nonspecific skin eruption SNOMED Code(s): 570581804 Code(s): R21 - RASH AND OTHER NONSPECIFIC SKIN ERUPTION Status: Acute Current Visit: Yes (3) Thrombocytopenia SNOMED Code(s): 703596673 Code(s): D69.6 - THROMBOCYTOPENIA, UNSPECIFIED Status: Acute Current Visit: Yes (4) Cervical cancer Status: Chronic Current Visit: Yes (5) HLD (hyperlipidemia) SNOMED Code(s): 15091036 Code(s): E78.5 - HYPERLIPIDEMIA, UNSPECIFIED Status: Chronic Current Visit: Yes (6) HTN (hypertension) SNOMED Code(s): 18880513 Code(s): I10 - ESSENTIAL (PRIMARY) HYPERTENSION Status: Chronic Current Visit: Yes (7) History of CVA (cerebrovascular accident) SNOMED Code(s): 991284490 Code(s): Z86.73 - PRSNL HX OF TIA (TIA), AND CEREB INFRC W/O RESID DEFICITS Status: Chronic Current Visit: Yes (8) Transaminitis SNOMED Code(s): 769250878, 648044466 Code(s): R74.01 - ELEVATION OF LEVELS OF LIVER TRANSAMINASE LEVELS Status: Acute Current Visit: Yes - Problem List Review Problem List Initiated/Reviewed/Updated: Yes - My Orders Last 24 Hours: My Active Orders 02/15/20 10:18 Magnesium Sulfate/Water [Magnesium Sulfate in Water Premix] 4 gm Premix Bag 1 bag IV ONETIME 02/15/20 11:41 Filgrastim [Neupogen] 480 mcg SUBCUT ONETIME ONE - Plan Plan:: This 54-year-old female admitted with neutropenic fever, macular rash, and hyponatremia 1. Neutropenic fever -Blood cultures pending - CT abdomen pelvis negative for infectious process. -Continue Cefepime 2 g every 8 hours for empiric coverage - IV fluids NS 125 - Having diarrhea, Cdiff negative. Will start Imodium. - ANC <500 today, will administer 1 dose of Neupogen - Neutropenic precautions, including diet 2. Thrombocytopenia - petechial rash developed. - No acute bleeding - Transfuse 1 unit platelets and monitor for bleeding. 3. Hyponatremia -resolved. 4. Transaminitis - f/u hepatitis panel - No findings on CT, obtain RUQ - Monitor daily 5. HTN/HLD/history CVA -BP improved. Restart Coreg -Hold statin for now as LFTs are elevated -Monitor lab work daily VTE prophylaxis: SCDs, monitor thrombocytopenia Dispo:2-3 days pending improvement
[2020-02-15] MEDS: Sertraline 50 MG Tab PO SCH (20:05)
[2020-02-15] MEDS: traZODone 50 MG Tab PO PRN (20:06)
[2020-02-15] MEDS: Ondansetron 4 MG/2 ML SDV IVPUSH PRN (20:08)
[2020-02-15] MEDS: TRANEXAMIC ACID 650 MG PO SCH (20:12)
[2020-02-16] MEDS: Sodium Chloride 0.9% 1,000 ML IV SCH (03:31)
[2020-02-16 06:32] LABS: BLOOD UREA NITROGEN,BUN 7 mg/dL (7.0-18.0); CARBON DIOXIDE,CO2 25.8 mmol/L (21.0-32.0); CHLORIDE,CL 100 mmol/L (98-107); GLUCOSE RANDOM 88 mg/dL (74-106); POTASSIUM,K 4.5 mmol/L (3.5-5.1); SODIUM,NA 133 mmol/L (136-145)
[2020-02-16] MEDS: Cefepime 2 GM in Premix Bag 1 BAG IV SCH (07:13)
[2020-02-16] MEDS: Carvedilol 6.25 MG Tab PO SCH (07:13)
[2020-02-16] MEDS: Acetaminophen 325 MG Tab PO PRN (08:55)
[2020-02-16] MEDS: LORazepam 1 MG Tab PO PRN (08:56)
[2020-02-16] MEDS: Ondansetron 4 MG/2 ML SDV IVPUSH PRN (08:57)
[2020-02-16] MEDS: FORMOTEROL FUMARATE INH SCH (09:21)
[2020-02-16] MEDS: BUDESONIDE INH SCH (09:21)
--- NOTE | 2020-02-16 12:19 | PCM.DCSUM1 ---
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 She had been in the ER multiple times in the last week or so with complaints of fever chills and overall not feeling well. On 02/05 she was diagnosed with pneumonia treated with a azithromycin on 02/09 she was noted to have fevers and tachycardia with an elevated lactate she was given fluids and improved and was discharged home both times. On 02/12 she presented after reviewing more literature on fevers and chemotherapy. She received chemotherapy and radiation yesterday in our cancer center. She reports some mild nausea and abdominal pain along with diarrhea. Patient reports fevers up to 102 F. In the ER white count noted to be leukopenic at 2.53. Hemoglobin 10.2 and platelet count 100,000. INR 1.1 lactic acid 1.5. BMP was significant for hyponatremia at 128 with chloride of 94 BUN 8 creatinine 0.6. Chest x-ray negative UA negative EKG sinus rhythm to sinus tachycardia no arrhythmias or ST segment changes. Blood cultures obtained in the ER. COVID swab negative. CTA of the chest on 02/09 showed possible bibasilar atelectasis. She will be admitted for neutropenic fever and hyponatremia. Blood cultures were obtained, she was started on cefepime, neutropenic precautions, CT abdomen showed no obvious source of infection. neutropenia and platelet count decreased further the next day. She developed a petechial rash all over her body, no active bleeding was noted, hemoglobin was stable. Patient received 1 unit of platelets and Neupogen. Next day her platelet count improved post transfusion and so did her ANC. She also has transaminitis on admission. US liver showed minimal fatty liver, hepatitis panel is pending ( send out), transaminitis improved on day 3, Patient was afebrile for the entire duration of her stay. her cdiff was negative, her blood cultures showed no growth as well. Patient was medically stable for dc and recommended to get a repeat CBC on Monday and follow up with her oncologist upon dc. - Discharge Data Discharge Date: 02/16/20 Discharge Disposition: Home, Self-Care 01 Condition: Fair - Referral to Home Health Primary Care Physician: PCP None - Discharge Diagnosis/Problem(s) (1) Neutropenic fever SNOMED Code(s): 924896076 ICD Code: D70.9 - NEUTROPENIA, UNSPECIFIED; R50.81 - FEVER PRESENTING WITH CONDITIONS CLASSIFIED ELSEWHERE Status: Acute Current Visit: Yes (2) Rash and nonspecific skin eruption SNOMED Code(s): 195825367 ICD Code: R21 - RASH AND OTHER NONSPECIFIC SKIN ERUPTION Status: Acute Current Visit: Yes (3) Thrombocytopenia SNOMED Code(s): 239951815 ICD Code: D69.6 - THROMBOCYTOPENIA, UNSPECIFIED Status: Acute Current Visit: Yes (4) Cervical cancer Status: Chronic Current Visit: Yes (5) HLD (hyperlipidemia) SNOMED Code(s): 05957204 ICD Code: E78.5 - HYPERLIPIDEMIA, UNSPECIFIED Status: Chronic Current Visit: Yes (6) HTN (hypertension) SNOMED Code(s): 00138057 ICD Code: I10 - ESSENTIAL (PRIMARY) HYPERTENSION Status: Chronic Current Visit: Yes (7) History of CVA (cerebrovascular accident) SNOMED Code(s): 167548033 ICD Code: Z86.73 - PRSNL HX OF TIA (TIA), AND CEREB INFRC W/O RESID DEFICITS Status: Chronic Current Visit: Yes (8) Transaminitis SNOMED Code(s): 867089249, 606159729 ICD Code: R74.01 - ELEVATION OF LEVELS OF LIVER TRANSAMINASE LEVELS Status: Acute Current Visit: Yes - Discharge Plan Home Medications: Home Meds Albuterol Sulfate [Proventil Hfa] 2 puff INH Q4H PRN 02/07/17 [History] Budesonide/Formoterol Fumarate [Symbicort 80-4.5 MCG] 2 puff INH DAILY 02/07/17 [History] Carvedilol [Coreg] 12.5 mg PO BIDMEALS 02/07/17 [History] Sertraline [Zoloft] 150 mg PO BEDTIME 02/07/17 [History] Simvastatin [Zocor] 10 mg PO BEDTIME 02/07/17 [History] Tranexamic Acid [Lysteda] 650 mg PO BEDTIME 01/09/20 [History] traZODone HCl [Trazodone HCl] 50 - 150 mg PO BEDTIME PRN 01/09/20 [History] LORazepam [Ativan] 1 mg PO TID PRN 02/05/20 [History] Ondansetron [Zofran] 8 mg PO Q8H PRN 02/05/20 [History] Prochlorperazine [Compazine] 10 mg PO Q6H PRN 02/05/20 [History] Patient Handouts: Platelet Transfusion, Fever, Adult Referrals: Marce Bowers NP [Ordering Only Provider] - Daniela Chi MD [Ordering Only Provider] - () - Discharge Summary/Plan Comment DC Time >30 min.: No - Patient Data Vitals - Most Recent: Last Vital Signs Temp 36.4 C 02/16/20 07:12 Pulse 80 02/16/20 07:13 Resp 14 02/16/20 07:12 BP 131/74 02/16/20 07:13 Pulse Ox 96 02/16/20 07:12 Weight - Most Recent: 90.855 kg I&O - Last 24 hours: Intake & Output 02/15/20 02/16/20 02/16/20 22:59 06:59 14:59 Intake Total 3228 2450 1169 Output Total 2520 3600 Balance 708 -1150 1169 Lab Results - Last 24 hrs: Laboratory Results - last 24 hr 02/14/20 02/16/20 02/16/20 Range/Units 10:32 05:50 05:50 WBC 4.34 (4.0-11.0) K/uL RBC 3.10 L (4.30-5.90) M/uL Hgb 9.5 L (12.0-16.0) g/dL Hct 29.0 L (36.0-46.0) % MCV 93.5 (80.0-98.0) fL MCH 30.6 (27.0-32.0) pg MCHC 32.8 (31.0-37.0) g/dL RDW Std Deviation 43.7 (28.0-62.0) fl RDW Coeff of Sara 13 (11.0-15.0) % Plt Count 64 L (150-400) K/uL MPV 9.60 (7.40-12.00) fL Neut % (Auto) 88.7 H (48.0-80.0) % Lymph % (Auto) 3.9 L (16.0-40.0) % [place] % (Auto) 4.4 (0.0-15.0) % Eos % (Auto) 3.0 (0.0-7.0) % Baso % (Auto) 0.0 (0.0-1.5) % Neut # (Auto) 3.9 (1.4-5.7) K/uL Lymph # (Auto) 0.2 L (0.6-2.4) K/uL [place] # (Auto) 0.2 (0.0-0.8) K/uL Eos # (Auto) 0.1 (0.0-0.7) K/uL Baso # (Auto) 0.0 (0.0-0.1) K/uL Nucleated RBC % 0.0 /100WBC Nucleated RBCs # 0 K/uL Sodium 133 L (136-145) mmol/L Potassium 4.5 (3.5-5.1) mmol/L Chloride 100 (98-107) mmol/L Carbon Dioxide 25.8 (21.0-32.0) mmol/L BUN 7 (7.0-18.0) mg/dL Creatinine 0.6 (0.6-1.0) mg/dL Est Cr Clr Drug Dosing 108.13 mL/min Estimated GFR (MDRD) > 60.0 ml/min Glucose 88 (74-106) mg/dL Calcium 8.7 (8.5-10.1) mg/dL Magnesium 1.7 L (1.8-2.4) mg/dL Total Bilirubin 0.2 (0.2-1.0) mg/dL AST 71 H (15-37) IU/L ALT 151 H (14-63) IU/L Alkaline Phosphatase 158 H (46-116) U/L Total Protein 6.5 (6.4-8.2) g/dL Albumin 3.3 L (3.4-5.0) g/dL Globulin 3.2 (2.6-4.0) g/dL Albumin/Globulin Ratio 1.0 (0.9-1.6) Blood Type B POSITIVE Antibody Screen NEGATIVE [place] Results - Last 24 hrs: Microbiology 02/13/20 11:57 Aerobic Blood Culture - Preliminary Blood - Venous NO GROWTH AFTER 3 DAYS Anaerobic Blood Culture - Preliminary NO GROWTH AFTER 3 DAYS 02/13/20 12:32 Aerobic Blood Culture - Preliminary Blood - Venous - Lab Draw NO GROWTH AFTER 2 DAYS Anaerobic Blood Culture - Final 02/14/20 06:50 Shiga Toxin I & II - Final Stool / Feces Med Orders - Current: Current Medications Acetaminophen (Tylenol) 650 mg PO Q4H PRN PRN Reason: Pain (Mild 1-3)/fever Last Admin: 02/16/20 08:55 Dose: 650 mg Documented by: Albuterol (Ventolin Hfa) 0 gm INH Q4HRRT PRN PRN Reason: Wheezing Carvedilol (Coreg) 12.5 mg PO Q12H [facility] Last Admin: 02/16/20 07:13 Dose: 12.5 mg Documented by: Cefepime HCl 2 gm/ Premix 50 mls @ 100 mls/hr IV Q8H [facility] Last Admin: 02/16/20 07:13 Dose: 100 mls/hr Documented by: Sodium Chloride (Normal Saline) 1,000 mls @ 125 mls/hr IV Q8H [facility] Last Admin: 02/16/20 03:31 Dose: 125 mls/hr Documented by: Loperamide HCl (Imodium) 2 mg PO ASDIRECTED PRN PRN Reason: Diarrhea Last Admin: 02/14/20 16:00 Dose: 2 mg Documented by: Lorazepam (Ativan) 1 mg PO Q6H PRN PRN Reason: Anxiety Last Admin: 02/16/20 08:56 Dose: 1 mg Documented by: Morphine Sulfate (Morphine) 2 mg IVPUSH Q2H PRN PRN Reason: Pain (severe 7-10) Ondansetron HCl (Zofran) 4 mg IVPUSH Q4H PRN PRN Reason: Nausea Last Admin: 02/16/20 08:57 Dose: 4 mg Documented by: Budesonide/Formoterol Fumarate [Symbicort 80-4.5 Mcg] 2 each INH DAILY [facility] Last Admin: 02/16/20 09:21 Dose: Not Given Documented by: Tranexamic Acid [ (Lysteda] 650 Mg) 1 each PO BEDTIME [facility] Last Admin: 02/15/20 20:12 Dose: 1 each Documented by: Sertraline HCl (Zoloft) 125 mg PO BEDTIME [facility] Last Admin: 02/15/20 20:05 Dose: 125 mg Documented by: Sodium Chloride (Saline Flush) 10 ml FLUSH ASDIRECTED PRN PRN Reason: Keep Vein Open Trazodone HCl (Trazodone) 100 mg PO BEDTIME PRN PRN Reason: Insomnia Last Admin: 02/15/20 20:06 Dose: 100 mg Documented by: Discontinued Medications Acetaminophen (Tylenol Extra Strength) 1,000 mg PO ONETIME ONE Stop: 02/13/20 14:43 Last Admin: 02/13/20 14:52 Dose: 1,000 mg Documented by: Carvedilol (Coreg) 12.5 mg PO BIDMEALS [facility] Last Admin: 02/14/20 16:03 Dose: Not Given Documented by: Filgrastim (Neupogen) 480 mcg SUBCUT ONETIME ONE Stop: 02/15/20 11:42 Last Admin: 02/15/20 12:22 Dose: 480 mcg Documented by: Cefepime HCl 1 gm/ Premix 50 mls @ 100 mls/hr IV ONETIME ONE Stop: 02/13/20 14:17 Last Admin: 02/13/20 13:59 Dose: 100 mls/hr Documented by: Cefepime HCl 1 gm/ Premix 50 mls @ 100 mls/hr IV ONETIME ONE Stop: 02/13/20 16:26 Last Admin: 02/13/20 16:54 Dose: 100 mls/hr Documented by: Magnesium Sulfate (Magnesium Sulfate In Water Premix) 2 gm in 50 mls @ 50 mls/hr IV ONETIME ONE Stop: 02/14/20 09:14 Last Admin: 02/14/20 09:34 Dose: 50 mls/hr Documented by: Magnesium Sulfate 4 gm/ Premix 100 mls @ 33.333 mls/hr IV ONETIME ONE Stop: 02/15/20 13:17 Last Admin: 02/15/20 10:33 Dose: 33.333 mls/hr Documented by: Ibuprofen (Motrin) 800 mg PO ONETIME ONE Stop: 02/13/20 14:20 Last Admin: 02/13/20 14:42 Dose: Not Given Documented by: Non-Formulary Medication (Tranexamic Acid [Lysteda]) 650 mg PO BEDTIME [facility] Non-Formulary Medication (Nf Drug) 1 each .ROUTE .STK-MED ONE Stop: 02/14/20 21:01
[2020-02-16] MEDS ORDERED: Magnesium Oxide 400 MG Tab PO ONE (12:50)
== END 2020-02-16 13:50 | disposition home or self-care (01) | DRG 809 ==
LOC: MW.ED 10:57 → MW.MS 15:32
PROVIDERS: ADMIT Internal Medicine; ATTEND Internal Medicine
DX: D70.9 Neutropenia, unspecified (principal); E87.1 Hypo-osmolality and hyponatremia; I50.30 Unspecified diastolic (congestive) heart failure; R50.81 Fever presenting with conditions classified elsewhere; D69.6 Thrombocytopenia, unspecified; J43.9 Emphysema, unspecified; R21 Rash and other nonspecific skin eruption; Z20.828 Contact with and (suspected) exposure to other viral communicable diseases; E78.5 Hyperlipidemia, unspecified; F41.9 Anxiety disorder, unspecified; I10 Essential (primary) hypertension; R74.01 Elevation of levels of liver transaminase levels; C53.9 Malignant neoplasm of cervix uteri, unspecified; K76.0 Fatty (change of) liver, not elsewhere classified; E78.00 Pure hypercholesterolemia, unspecified; I11.0 Hypertensive heart disease with heart failure; D64.9 Anemia, unspecified; E66.9 Obesity, unspecified; F41.0 Panic disorder [episodic paroxysmal anxiety]; F32.9 Major depressive disorder, single episode, unspecified; Z98.49 Cataract extraction status, unspecified eye; Z86.73 Personal history of transient ischemic attack (TIA), and cerebral infarction without residual deficits; Z79.899 Other long term (current) drug therapy; Z87.891 Personal history of nicotine dependence
CPT/HCPCS: 36415; 71045; 80053; 80074; 81001; 83605; 83690; 85025; 85610; 85730; 87040 ×2; 87635; 99285; A9270; J0692; 36430; 74176; 74176-26; 76705; 76705-26; 83735; 86850; 86900; 86901; 87045; 87046; 87324; 87449; 87899; 99284; J1442; J2405; J3475; J7030; P9034; U0002

== ENCOUNTER 2020-06-21 14:34 | Emergency (ER) | payer MEDICAID ==
--- NOTE | 2020-06-21 14:39 | EDM.PDOC ---
ED HPI GENERAL MEDICAL PROBLEM - General Stated Complaint: ALLERGIC REACTION TO CHEMO TREATMENT Time Seen by Provider: 06/21/20 14:38 Source of Information: Reports: Patient History Limitations: Reports: No Limitations - History of Present Illness INITIAL COMMENTS - FREE TEXT/NARRATIVE: 54-year-old female past medical history hypertension, hyperlipidemia, COPD, cervical cancer, recently started new chemotherapy regimen presents for allergic reaction. Patient notes that she received chemotherapy on . Yesterday she began to experience itchiness in her palms which over the course of 20 to 30 minutes progressed to generalized hives all over her upper extremities, torso, back. She then began to experience of her lower lip and tongue. She had some difficulty breathing. She called EMS and was given an epinephrine injection and brought to an outside emergency department. There she was given Benadryl and steroids. She was sent home with just 2 pills of prednisone and told to take them only if her symptoms recurred. This afternoon she began to experience itchiness in her palms which is exactly how her symptoms started yesterday. She then developed a generalized rash again like yesterday. She took the prednisone and Benadryl and symptoms seem to be much improved for right now. Today she had a little bit of scratchiness in her throat but never had a throat closing sensation or difficulty breathing. She called her on-call oncologist in [place] and was told to come to the emergency department for IV fluids, steroids, Benadryl, monitoring. - Related Data Allergies Allergy/AdvReac Type Severity Reaction Status Date / Time No Known Allergies Allergy Verified 06/21/20 14:50 Home Meds: Home Meds Albuterol Sulfate [Proventil Hfa] 2 puff INH Q4H PRN 02/07/17 [History] Budesonide/Formoterol Fumarate [Symbicort 80-4.5 MCG] 2 puff INH DAILY 02/07/17 [History] Carvedilol [Coreg] 12.5 mg PO BIDMEALS 02/07/17 [History] Sertraline [Zoloft] 150 mg PO BEDTIME 02/07/17 [History] Simvastatin [Zocor] 10 mg PO BEDTIME 02/07/17 [History] Tranexamic Acid [Lysteda] 650 mg PO BEDTIME 01/09/20 [History] traZODone HCl [Trazodone HCl] 50 - 150 mg PO BEDTIME PRN 01/09/20 [History] LORazepam [Ativan] 1 mg PO TID PRN 02/05/20 [History] Ondansetron [Zofran] 8 mg PO Q8H PRN 02/05/20 [History] Prochlorperazine [Compazine] 10 mg PO Q6H PRN 02/05/20 [History] EPINEPHrine [Epipen] 0.3 mg IM ONETIME PRN #1 unit 06/21/20 [Rx] predniSONE [Prednisone] 20 mg PO BID #12 tablet 06/21/20 [Rx] Past Medical History HEENT History: Reports: Other (See Below) Other HEENT History: wears glasses Cardiovascular History: Reports: Arrhythmia, High Cholesterol, Hypertension, Other (See Below) Other Cardiovascular History: atrial aneurysm, h/o (HFpEF) heart failure with preserved ejection fraction Respiratory History: Reports: COPD, SOB, Other (See Below) Other Respiratory History: emphysema, hx of hemothorax, 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 Left arm fx at age 11 Neurological History: Reports: TIA, Other (See Below) Other Neuro History: cryptogenic stroke - states "stroke in heart 20 years ago" Psychiatric History: Reports: Anxiety, Depression, Panic Attack, PTSD Endocrine/Metabolic History: Reports: Obesity/BMI 30+ Hematologic History: Reports: Anemia, Blood Transfusion(s) Immunologic History: Reports: None Oncologic (Cancer) History: Reports: Cervix Dermatologic History: Reports: None - Infectious Disease History Infectious Disease History: Reports: Chicken Pox, Mumps - Past Surgical History Head Surgeries/Procedures: Reports: None HEENT Surgical History: Reports: Cataract Surgery, Myringotomy w Tube(s), Tonsillectomy Cardiovascular Surgical History: Reports: None Respiratory Surgical History: Reports: None GI Surgical History: Reports: None Female Surgical History: Reports: Section, Tubal Ligation Other Female Surgeries/Procedures: c/section x2, laparotomy 2 days following last c/section for internal bleeding Endocrine Surgical History: Reports: None Neurological Surgical History: Reports: None Musculoskeletal Surgical History: Reports: None Oncologic Surgical History: Reports: None Other Oncologic Surgeries/Procedures: Port for chemo to left ches Dermatological Surgical History: Reports: None Social & Family History - Family History Family Medical History: No Pertinent Family History HEENT: Reports: None Cardiac: Reports: High Cholesterol, Hypertension, [place] Respiratory: Reports: None GI: Reports: None : Reports: None OBGYN: Reports: Musculoskeletal: Reports: Arthritis, Gout Neurological: Reports: None Psychiatric: Reports: Anxiety, Depression Endocrine/Metabolic: Reports: None Hematologic: Reports: None Immunologic: Reports: None Dermatologic: Reports: None Oncologic: Reports: Lymphoma - Caffeine Use Caffeine Use: Reports: Energy Drinks, Soda ED ROS GENERAL - Review of Systems Review Of Systems: Comprehensive ROS is negative, except as noted in HPI. ED EXAM, GENERAL - Physical Exam Exam: See Below Exam Limited By: No Limitations General Appearance: Alert, WD/WN, No Apparent Distress Throat/Mouth: Normal Inspection, Normal Oropharynx, Normal Voice, No Airway Compromise Head: Atraumatic, Normocephalic Neck: Normal Inspection, Other (No stridor) Respiratory/Chest: No Respiratory Distress, Lungs Clear, Normal Breath Sounds, No Accessory Muscle Use Cardiovascular: Normal Peripheral Pulses, Regular Rate, Rhythm Extremities: Normal Inspection Neurological: Alert, Normal Gait Psychiatric: Normal Affect, Normal Mood Skin Exam: Warm, Dry, Intact, Normal Color, No Rash Course - Vital Signs Last Recorded V/S: Last Vital Signs Temp 97.1 F 06/21/20 14:48 Pulse 76 06/21/20 14:48 Resp 16 06/21/20 14:48 BP 107/72 06/21/20 14:48 Pulse Ox 95 06/21/20 14:48 - Orders/Labs/Meds Orders: Active Orders 24 hr Category Date Time Status Sodium Chloride 0.9% [Saline Flush] Med 06/21/20 14:57 Active 10 ml FLUSH ASDIRECTED PRN Sodium Chloride 0.9% [Saline Flush] Med 06/21/20 14:57 Active 2.5 ml FLUSH ASDIRECTED PRN Saline Lock Insert [OM.PC] Stat Oth 06/21/20 14:57 Ordered Medication Orders Sodium Chloride (Saline Flush) 10 ml FLUSH ASDIRECTED PRN PRN Reason: Keep Vein Open Last Admin: 06/21/20 15:29 Dose: 10 ml Documented by: JOSUÉ Sodium Chloride (Saline Flush) 2.5 ml FLUSH ASDIRECTED PRN PRN Reason: Keep Vein Open Last Admin: 06/21/20 15:28 Dose: 2.5 ml Documented by: JOSUÉ Labs: Laboratory Tests 06/21/20 06/21/20 Range/Units 15:27 15:27 WBC 6.51 (4.0-11.0) K/uL RBC 3.62 L (4.30-5.90) M/uL Hgb 11.7 L (12.0-16.0) g/dL Hct 35.5 L (36.0-46.0) % MCV 98.1 H (80.0-98.0) fL MCH 32.3 H (27.0-32.0) pg MCHC 33.0 (31.0-37.0) g/dL RDW Std Deviation 44.5 (28.0-62.0) fl RDW Coeff of Sara 12 (11.0-15.0) % Plt Count 120 L (150-400) K/uL MPV 9.80 (7.40-12.00) fL Neut % (Auto) 90.9 H (48.0-80.0) % Lymph % (Auto) 6.5 L (16.0-40.0) % [place] % (Auto) 1.7 (0.0-15.0) % Eos % (Auto) 0.9 (0.0-7.0) % Baso % (Auto) 0.0 (0.0-1.5) % Neut # (Auto) 5.9 H (1.4-5.7) K/uL Lymph # (Auto) 0.4 L (0.6-2.4) K/uL [place] # (Auto) 0.1 (0.0-0.8) K/uL Eos # (Auto) 0.1 (0.0-0.7) K/uL Baso # (Auto) 0.0 (0.0-0.1) K/uL Nucleated RBC % 0.4 /100WBC Nucleated RBCs # 0 K/uL Sodium 132 L (136-145) mmol/L Potassium 4.8 (3.5-5.1) mmol/L Chloride 94 L (98-107) mmol/L Carbon Dioxide 28.9 (21.0-32.0) mmol/L BUN 13 (7.0-18.0) mg/dL Creatinine 0.9 (0.6-1.0) mg/dL Est Cr Clr Drug Dosing 72.08 mL/min Estimated GFR (MDRD) > 60.0 ml/min Glucose 122 H (74-106) mg/dL Calcium 9.1 (8.5-10.1) mg/dL Total Bilirubin 0.5 (0.2-1.0) mg/dL AST 59 H (15-37) IU/L ALT 55 (14-63) IU/L Alkaline Phosphatase 92 (46-116) U/L Total Protein 7.2 (6.4-8.2) g/dL Albumin 3.9 (3.4-5.0) g/dL Globulin 3.3 (2.6-4.0) g/dL Albumin/Globulin Ratio 1.2 (0.9-1.6) Meds: Medications Generic Name Dose Route Start Last Admin Trade Name Buffy PRN Reason Stop Dose Admin Sodium Chloride 10 ml 06/21/20 14:57 06/21/20 15:29 Saline Flush FLUSH 10 ml ASDIRECTED PRN Administration Keep Vein Open Sodium Chloride 2.5 ml 06/21/20 14:57 06/21/20 15:28 Saline Flush FLUSH 2.5 ml ASDIRECTED PRN Administration Keep Vein Open Discontinued Medications Generic Name Dose Route Start Last Admin Trade Name Buffy PRN Reason Stop Dose Admin Cyclobenzaprine HCl 10 mg 06/21/20 16:02 06/21/20 16:15 Flexeril PO 06/21/20 16:03 10 mg ONETIME ONE Administration Dexamethasone 10 mg 06/21/20 14:57 06/21/20 15:28 Decadron IV 06/21/20 14:58 10 mg ONETIME ONE Administration Diphenhydramine HCl 25 mg 06/21/20 14:57 06/21/20 15:28 Benadryl IVPUSH 06/21/20 14:58 25 mg ONETIME ONE Administration Sodium Chloride 1,000 mls @ 999 mls/hr 06/21/20 15:31 06/21/20 15:33 Normal Saline IV 06/21/20 16:31 999 mls/hr .Bolus ONE Administration Ondansetron HCl 4 mg 06/21/20 15:40 06/21/20 16:16 Zofran IVPUSH 06/21/20 15:41 4 mg ONETIME ONE Administration - Re-Assessments/Exams Free Text/Narrative Re-Assessment/Exam: 06/21/20 15:02 Patient presents after an allergic reaction. Will get basic labs, IV fluid bolus, Benadryl, Decadron. Will reach out to patient's on-call oncologist for disposition recommendations. 06/21/20 16:12 Patient remains well-appearing, no difficulty breathing or throat swelling sensation. She does note some nausea and muscle spasm so Flexeril and Zofran ordered for symptom control. We will continue ops and disposition accordingly. Departure - Departure Time of Disposition: 18:07 Disposition: Home, Self-Care 01 Condition: Good Clinical Impression: Allergic reaction Qualifiers: Encounter type: initial encounter Qualified Code(s): T78.40XA - Allergy, unspecified, initial encounter - Discharge Information Prescriptions: EPINEPHrine [Epipen] 0.3 mg IM ONETIME PRN #1 unit PRN Reason: Allergies predniSONE [Prednisone] 20 mg PO BID #12 tablet Instructions: Anaphylactic Reaction, Adult Referrals: Marce Bowers [facility] PULLER [Primary Care Provider] - Additional Instructions: The following information is given to patients seen in the emergency department who are being discharged to home. This information is to outline your options for follow-up care. We provide all patients seen in our emergency department with a follow-up referral. The need for follow-up, as well as the timing and circumstances, are variable depending upon the specifics of your emergency department visit. If you don't have a primary care physician on staff, we will provide you with a referral. We always advise you to contact your personal physician following an emergency department visit to inform them of the circumstance of the visit and for follow-up with them and/or the need for any referrals to a consulting specialist. The emergency department will also refer you to a specialist when appropriate. This referral assures that you have the opportunity for follow-up care with a specialist. All of these measure are taken in an effort to provide you with optimal care, which includes your follow-up. Under all circumstances we always encourage you to contact your private physician who remains a resource for coordinating your care. When calling for follow-up care, please make the office aware that this follow-up is from your recent emergency room visit. If for any reason you are refused follow-up, please contact the [facility] Department at and asked to speak to the emergency department charge nurse. Please follow up with your primary care physician. If you do not have a primary care physician, see below: [facility] [address], [place] [id number] [facility] [address], [place] [id number] [facility] [address] [place] [address] Sepsis Event Note (ED) - Focused Exam Vital Signs: Vital Signs Temp Pulse Resp BP Pulse Ox 06/21/20 14:48 97.1 F 76 16 107/72 95 - My Orders Last 24 Hours: My Active Orders 06/21/20 14:57 Sodium Chloride 0.9% [Saline Flush] 10 ml FLUSH ASDIRECTED PRN Sodium Chloride 0.9% [Saline Flush] 2.5 ml FLUSH ASDIRECTED PRN Saline Lock Insert [OM.PC] Stat - Assessment/Plan Last 24 Hours: My Active Orders 06/21/20 14:57 Sodium Chloride 0.9% [Saline Flush] 10 ml FLUSH ASDIRECTED PRN Sodium Chloride 0.9% [Saline Flush] 2.5 ml FLUSH ASDIRECTED PRN Saline Lock Insert [OM.PC] Stat
[2020-06-21] MEDS ORDERED: Dexamethasone 10 MG/ML SDV IV ONE (14:57)
[2020-06-21] MEDS ORDERED: Sodium Chloride 0.9% 2.5 ML Syringe FLUSH PRN (14:57)
[2020-06-21] MEDS ORDERED: diphenhydrAMINE 50 MG/ML SDV IVPUSH ONE (14:57)
[2020-06-21] MEDS ORDERED: Sodium Chloride 0.9% 10 ML Syringe FLUSH PRN (14:57)
[2020-06-21] MEDS ORDERED: Sodium Chloride 0.9% 1,000 ML IV ONE (15:31)
[2020-06-21] MEDS ORDERED: Ondansetron 4 MG/2 ML SDV IVPUSH ONE (15:40)
[2020-06-21 15:56] LABS: BLOOD UREA NITROGEN,BUN 13 mg/dL (7.0-18.0); CARBON DIOXIDE,CO2 28.9 mmol/L (21.0-32.0); CHLORIDE,CL 94 mmol/L (98-107); GLUCOSE RANDOM 122 mg/dL (74-106); POTASSIUM,K 4.8 mmol/L (3.5-5.1); SODIUM,NA 132 mmol/L (136-145)
[2020-06-21] MEDS ORDERED: Cyclobenzaprine 10 MG Tab PO ONE (16:02)
== END 2020-06-21 18:18 | disposition home or self-care (01) ==
LOC: MW.ED 14:34
DX: T78.40XA Allergy, unspecified, initial encounter (principal); J44.9 Chronic obstructive pulmonary disease, unspecified; E78.5 Hyperlipidemia, unspecified; I11.0 Hypertensive heart disease with heart failure; I50.9 Heart failure, unspecified; E66.9 Obesity, unspecified; Z68.29 Body mass index [BMI] 29.0-29.9, adult; Z86.73 Personal history of transient ischemic attack (TIA), and cerebral infarction without residual deficits
CPT/HCPCS: 36415; 80053; 85025; 96374; 96375; 99284; A9270; J1100; J1200; J1642; J2405; J7030; 99283

== ENCOUNTER 2020-12-10 12:43 | Emergency (ER) | payer MEDICAID ==
[2020-12-10] MEDS ORDERED: Ondansetron 4 MG/2 ML SDV IVPUSH ONE (13:37)
[2020-12-10] MEDS ORDERED: HYDROmorphone 1 MG/ML Syringe IVPUSH ONE ×2 (13:37→14:11)
--- NOTE | 2020-12-10 14:25 | EDM.PDOC ---
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 Chi. Patient reports that she went to get her CT scan done earlier today after Port-A-Cath was accessed and while laying flat felt severe pain to her right buttock rating to her right knee while she was lying flat. Patient reports that she was getting the CT scan of her abdomen pelvis so that her doctor can help identify the location of her pain. Patient reports that she currently was started on oral morphine for pain and takes other medications for pain that she does not recall at this time. Patient denies any recent fevers, shakes, chills, nausea, vomiting, diarrhea, dysuria, frequency, urgency. Patient denies any weakness to her upper or lower extremities. Patient denies any other new concerns. Patient was brought to the ED for assistance with her pain so that she can obtain the CT scan that was ordered by her doctor. Review of systems: As per history of present illness and below otherwise all systems reviewed and negative. Past medical history: As per history of present illness and as reviewed below otherwise noncontributory. Surgical history: As per history of present illness and as reviewed below otherwise noncontributory. Social history: No reported history of drug abuse. Family history: As per history of present illness and as reviewed below otherwise noncontributory. Physical exam: This patient was seen and evaluated during the 2019 SARS-CoV-2 novel coronavirus pandemic period. Community viral transmission is ongoing at time of this encounter and the emergency department is operating under pandemic response procedures. Constitutional: Patient is oriented to person, place, and time. Appears well- developed and well-nourished. No distress. HEENT: Moist mucous membranes Head: Normocephalic and atraumatic Eyes: Right eye exhibits no discharge. Left eye exhibits no discharge. No scleral icterus Neck: Normal range of motion. No tracheal deviation present. Cardiovascular: Normal rate and regular rhythm. Pulmonary: Effort normal, no respiratory distress. Abdominal: No distention Musculoskeletal: Normal range of motion Neurologic: Alert and oriented to person, place and time. Skin: [place], warm and dry. Psychiatric: Normal mood and affect. Behavior is normal. Judgment and thought content normal. Nursing note and vital signs have been reviewed Patient's ER physical exam is significant for reproducible pain and discomfort when she lays flat. Patient reports that she feels more comfortable when she is sitting up in the bed. Diagnostics: [] Therapeutics: [] Assessment and plan: This is a 55-year-old female who presents ER today secondary to intractable pain while trying to obtain a CT scan. She was sent to the ER with a request to obtain pain medicines that she can obtain her CAT scan successfully. Patient was given a milligram of IV Dilaudid here in the ED. Patient was sent for CT scan however while she was lying flat during the down filler films her pain started to become excruciating again and requested to stop the studies. I have discussed with the manufacturing test technician and we will try another dose of Dilaudid for pain as well as a dose of Valium 5 mg IV for muscle relaxation to see if we can assist with her getting a CT scan. Patient will be reevaluated after the medications for her CT scan. 2:47 PM: Patient received the second milligram Dilaudid and Valium 5 mg IV without any success with obtaining her CT. Patient has declined a CT scan is requesting to be discharged home. Patient will be given a prescription for lidocaine patch and she is requesting the prescription for OxyContin until she is able to see her primary oncologist/ To assist her with her pain man agement. Patient's pain appears to be most likely consistent with musculoskeletal pain. I have discussed with the patient I am unable to diagnose her pain without obtaining further studies however she understands this and still is refusing test. I have discussed with her that this could be metastatic lesions, blood clots, arterial clots, but at this time she still does not want to have the CT. She understands the potential that this could be something life-threatening that can cause disability and is still refusing. I will respect the patient autonomy and allow her to refuse her tests and I will assist her specific came with managing her pain until she can see your family doctor. Reassessment at the time of disposition demonstrates that the patient is in no acute distress. The patient has remained stable throughout the entire ED visit and is without objective evidence for acute process requiring urgent intervention or hospitalization. The patient is stable for discharge, counseling is provided as documented above, discussed symptomatic treatment and specific conditions for return. I have spoken with the patient/caregiver and discussed todays findings, in addition to providing specific details for the plan of care. Questions are answered and there is agreement with the plan. Definitive disposition and diagnosis as appropriate pending reevaluation and review of above. Right Leg Pain Score (Numeric/FACES): 4 - Related Data Allergies Allergy/AdvReac Type Severity Reaction Status Date / Time No Known Allergies Allergy Verified 06/21/20 14:50 Home Meds: Home Meds Albuterol Sulfate [Proventil Hfa] 2 puff INH Q4H PRN 02/07/17 [History] Budesonide/Formoterol Fumarate [Symbicort 80-4.5 MCG] 2 puff INH DAILY 02/07/17 [History] Carvedilol [Coreg] 12.5 mg PO BIDMEALS 02/07/17 [History] Sertraline [Zoloft] 150 mg PO BEDTIME 02/07/17 [History] Simvastatin [Zocor] 10 mg PO BEDTIME 02/07/17 [History] Tranexamic Acid [Lysteda] 650 mg PO BEDTIME 01/09/20 [History] traZODone HCl [Trazodone HCl] 50 - 150 mg PO BEDTIME PRN 01/09/20 [History] LORazepam [Ativan] 1 mg PO TID PRN 02/05/20 [History] Ondansetron [Zofran] 8 mg PO Q8H PRN 02/05/20 [History] Prochlorperazine [Compazine] 10 mg PO Q6H PRN 02/05/20 [History] Cyclobenzaprine [Flexeril] 10 mg PO TID PRN #20 tab 06/21/20 [Rx] Cyclobenzaprine [Flexeril] 10 mg PO TID PRN #20 tab 06/21/20 [Rx] EPINEPHrine [Epipen] 0.3 mg IM ONETIME PRN #1 unit 06/21/20 [Rx] EPINEPHrine [Epipen] 0.3 mg IM ONETIME PRN #1 unit 06/21/20 [Rx] predniSONE [Prednisone] 20 mg PO BID #12 tablet 06/21/20 [Rx] predniSONE [Prednisone] 20 mg PO BID #12 tablet 06/21/20 [Rx] Lidocaine 5% [Lidoderm 5%] 1 patch TOP DAILY PRN #7 patch 12/10/20 [Rx] oxyCODONE ER [OxyCONTIN] 10 mg PO Q12H PRN #12 tab.er 12/10/20 [Rx] Past Medical History HEENT History: Reports: Other (See Below) Other HEENT History: wears glasses Cardiovascular History: Reports: Arrhythmia, High Cholesterol, Hypertension, Other (See Below) Other Cardiovascular History: atrial aneurysm, h/o (HFpEF) heart failure with preserved ejection fraction Respiratory History: Reports: COPD, SOB, Other (See Below) Other Respiratory History: emphysema, hx of hemothorax, 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 Left arm fx at age 11 Neurological History: Reports: TIA, Other (See Below) Other Neuro History: cryptogenic stroke - states "stroke in heart 20 years ago" Psychiatric History: Reports: Anxiety, Depression, Panic Attack, PTSD Endocrine/Metabolic History: Reports: Obesity/BMI 30+ Hematologic History: Reports: Anemia, Blood Transfusion(s) Immunologic History: Reports: None Oncologic (Cancer) History: Reports: Cervix, Lymphoma Dermatologic History: Reports: None - Infectious Disease History Infectious Disease History: Reports: Chicken Pox, Mumps - Past Surgical History Head Surgeries/Procedures: Reports: None HEENT Surgical History: Reports: Cataract Surgery, Myringotomy w Tube(s), Tonsillectomy Cardiovascular Surgical History: Reports: None Respiratory Surgical History: Reports: None GI Surgical History: Reports: None Female Surgical History: Reports: Section, Tubal Ligation Other Female Surgeries/Procedures: c/section x2, laparotomy 2 days following last c/section for internal bleeding Endocrine Surgical History: Reports: None Neurological Surgical History: Reports: None Musculoskeletal Surgical History: Reports: None Oncologic Surgical History: Reports: None Other Oncologic Surgeries/Procedures: Port for chemo to left chest Dermatological Surgical History: Reports: None Social & Family History - Family History Family Medical History: No Pertinent Family History HEENT: Reports: None Cardiac: Reports: High Cholesterol, Hypertension, [place] Respiratory: Reports: None GI: Reports: None : Reports: None OBGYN: Reports: Musculoskeletal: Reports: Arthritis, Gout Neurological: Reports: None Psychiatric: Reports: Anxiety, Depression Endocrine/Metabolic: Reports: None Hematologic: Reports: None Immunologic: Reports: None Dermatologic: Reports: None Oncologic: Reports: Lymphoma - Tobacco Use Tobacco Use Status *Q: Never Tobacco User - Caffeine Use Caffeine Use: Reports: None - Recreational Drug Use Recreational Drug Use: No Review of Systems - Review of Systems Review Of Systems: See Below ED EXAM, GENERAL - Physical Exam Exam: See Below Course - Vital Signs Last Recorded V/S: Last Vital Signs Temp 98 F 12/10/20 13:11 Pulse 67 12/10/20 13:11 Resp 16 12/10/20 13:11 BP 121/79 12/10/20 13:11 Pulse Ox 99 12/10/20 13:11 - Orders/Labs/Meds Orders: Active Orders 24 hr Category Date Time Status Femur w Cont Rt [CT] Stat Exams 12/10/20 13:39 Ordered Meds: Medications Discontinued Medications Generic Name Dose Route Start Last Admin Trade Name Freq PRN Reason Stop Dose Admin Diazepam 5 mg 12/10/20 14:11 Diazepam 10 Mg/2 Ml Syringe IVPUSH 12/10/20 14:12 ONETIME STA Hydromorphone HCl 1 mg 12/10/20 13:37 12/10/20 13:45 Hydromorphone 1 Mg/Ml Syringe IVPUSH 12/10/20 13:38 1 mg ONETIME ONE Administration Hydromorphone HCl 1 mg 12/10/20 14:11 Hydromorphone 1 Mg/Ml Syringe IVPUSH 12/10/20 14:12 ONETIME ONE Lidocaine HCl 5 ml 12/10/20 14:42 Lidocaine 1% 5 Ml Sdv INJECT 12/10/20 14:43 ONETIME ONE Ondansetron HCl 4 mg 12/10/20 13:37 12/10/20 13:44 Ondansetron 4 Mg/2 Ml Sdv IVPUSH 12/10/20 13:38 4 mg ONETIME ONE Administration Departure - Departure Time of Disposition: 14:48 Disposition: Home, Self-Care 01 Condition: Fair Clinical Impression: Right leg pain, Chronic pain, Cervical cancer - Discharge Information Prescriptions: Lidocaine 5% [Lidoderm 5%] 1 patch TOP DAILY PRN #7 patch PRN Reason: Pain oxyCODONE ER [OxyCONTIN] 10 mg PO Q12H PRN #12 tab.er PRN Reason: Pain Instructions: Chronic Pain, Adult, Pain Without a Known Cause Referrals: Daniela Chi MD [Primary Care Provider] - Forms: ED Department Discharge Additional Instructions: Your seen and evaluated in the ER today secondary to pain to your right thigh and inability to obtain a CT scan secondary to your pain. In the ER he did receive 2 mg of IV Dilaudid as well as 5 mg of IV Valium without any success and obtain a CT scan. You will be given a prescription for OxyContin 10 mg to take twice a day as needed for pain. You are also a given a prescription for lidocaine patches to see if that might help the pain in your right leg. Please make an appointment see your family doctor in the next several days for assistance with your pain and further evaluation for your x-rays that they want to obtain. The following information is given to patients seen in the emergency department who are being discharged to home. This information is to outline your options for follow-up care. We provide all patients seen in our emergency department with a follow-up referral. The need for follow-up, as well as the timing and circumstances, are variable depending upon the specifics of your emergency department visit. If you don't have a primary care physician on staff, we will provide you with a referral. We always advise you to contact your personal physician following an emergency department visit to inform them of the circumstance of the visit and for follow-up with them and/or the need for any referrals to a consulting specialist. The emergency department will also refer you to a specialist when appropriate. This referral assures that you have the opportunity for follow-up care with a specialist. All of these measure are taken in an effort to provide you with optimal care, which includes your follow-up. Under all circumstances we always encourage you to contact your private physician who remains a resource for coordinating your care. When calling for follow-up care, please make the office aware that this follow-up is from your recent emergency room visit. If for any reason you are refused follow-up, please contact the [facility] Emergency Department at and asked to speak to the emergency department charge nurse. [facility] [id number], [place] [address] [facility] [address] [place] [id number] Sepsis Event Note (ED) - Focused Exam Vital Signs: Vital Signs Temp Pulse Resp BP Pulse Ox 12/10/20 13:11 98 F 67 16 121/79 99 - My Orders Last 24 Hours: My Active Orders 12/10/20 13:39 Femur w Cont Rt [CT] Stat - Assessment/Plan Last 24 Hours: My Active Orders 12/10/20 13:39 Femur w Cont Rt [CT] Stat
[2020-12-10] MEDS ORDERED: Lidocaine 5% 700 MG Patch TRDERM ONE (14:58)
== END 2020-12-10 15:19 | disposition home or self-care (01) ==
LOC: MW.ED 12:43
DX: G89.29 Other chronic pain (principal); M79.604 Pain in right leg; C53.9 Malignant neoplasm of cervix uteri, unspecified; J44.9 Chronic obstructive pulmonary disease, unspecified; E78.5 Hyperlipidemia, unspecified; E66.9 Obesity, unspecified; I11.0 Hypertensive heart disease with heart failure; Z68.25 Body mass index [BMI] 25.0-25.9, adult; Z79.899 Other long term (current) drug therapy
CPT/HCPCS: 96374; 96375; 99283; A9270; J1170; J1642; J2405; J3360